=== PATIENT | male | born 1960 | race Caucasian/White ===

== ENCOUNTER 2019-07-09 15:56 | Inpatient (IN) | payer MEDICAID ==
[~2019-07-09] VITALS: Ht 193 cm; Wt 194.2 kg
[2019-07-13 12:35] VITALS: BP 131/87
== END 2019-07-13 16:45 | disposition home or self-care (01) | DRG 280 ==
LOC: ED 16:40 → EDIP 17:35 → 5SO 18:01 → DCLOUNGE 07-13 16:22
PROVIDERS: ADMIT Internal Medicine; ATTEND Internal Medicine
DX: I21.A1 Myocardial infarction type 2 (principal); I50.31 Acute diastolic (congestive) heart failure; D68.59 Other primary thrombophilia; E66.2 Morbid (severe) obesity with alveolar hypoventilation; I13.0 Hypertensive heart and chronic kidney disease with heart failure and stage 1 through stage 4 chronic kidney disease, or unspecified chronic kidney disease; I48.92 Unspecified atrial flutter; Z68.43 Body mass index [BMI] 50.0-59.9, adult; Z66 Do not resuscitate; D63.8 Anemia in other chronic diseases classified elsewhere; E03.9 Hypothyroidism, unspecified; E11.22 Type 2 diabetes mellitus with diabetic chronic kidney disease; E11.42 Type 2 diabetes mellitus with diabetic polyneuropathy; E11.65 Type 2 diabetes mellitus with hyperglycemia; I16.0 Hypertensive urgency; I34.0 Nonrheumatic mitral (valve) insufficiency; I48.91 Unspecified atrial fibrillation; W22.8XXA Striking against or struck by other objects, initial encounter; N18.3 Chronic kidney disease, stage 3 (moderate); S81.819A Laceration without foreign body, unspecified lower leg, initial encounter; S91.111A Laceration without foreign body of right great toe without damage to nail, initial encounter; Y93.89 Activity, other specified; Y92.89 Other specified places as the place of occurrence of the external cause; Y99.8 Other external cause status; Z79.4 Long term (current) use of insulin; Z87.891 Personal history of nicotine dependence; Z88.8 Allergy status to other drugs, medicaments and biological substances
CPT/HCPCS: 36415; 93017; 96372; 96374; 96375; 99291; J7613; 0399T; 71045; 78452; 80048; 80053; 80061; 81001; 82962; 83036; 83735; 83880; 84443; 84484; 85025; 93005; 93306; 93970; 94640; A9585; G0378; J1644; J1650; J2543; J2785; J3370; A9502; C9898; J1815; J1940; J7040

== ENCOUNTER → 2019-09-21 | Outpatient (CLI) | payer MEDICAID ==
[~2019-09-21] MED LIST: ALBU90AE INH; AMLO-150 PO; AMOX1TAB64 PO; APIX5TAB PO; ASPI-496 PO; ATOR20TA37 PO; CARV12.543 PO; CLOT15CR6 TP; DULA1.5P SQ; FURO40TA6 PO; GABA300C10 PO; HUM100IN4 SC; HYDR-3240 PO; LACT1TAB13 PO; LEVO75TA5 PO; LOSA100T14 PO; METF500T17 PO; MUPI15CR9 TP; NITR0.4T28 SL; POLY17PO5 PO; POTA20PA25 PO; SULF1TAB24 PO
== END | disposition home or self-care (01) ==
LOC: WOUND 09:00
PROVIDERS: ATTEND Internal Medicine
DX: E11.621 Type 2 diabetes mellitus with foot ulcer (principal); L97.512 Non-pressure chronic ulcer of other part of right foot with fat layer exposed; L97.521 Non-pressure chronic ulcer of other part of left foot limited to breakdown of skin; E11.65 Type 2 diabetes mellitus with hyperglycemia; E11.42 Type 2 diabetes mellitus with diabetic polyneuropathy; E11.21 Type 2 diabetes mellitus with diabetic nephropathy; I13.0 Hypertensive heart and chronic kidney disease with heart failure and stage 1 through stage 4 chronic kidney disease, or unspecified chronic kidney disease; E11.22 Type 2 diabetes mellitus with diabetic chronic kidney disease; N18.3 Chronic kidney disease, stage 3 (moderate); I50.31 Acute diastolic (congestive) heart failure; L84 Corns and callosities; R60.9 Edema, unspecified; R78.5 Finding of other psychotropic drug in blood; J45.909 Unspecified asthma, uncomplicated; I25.2 Old myocardial infarction; E03.9 Hypothyroidism, unspecified; E66.01 Morbid (severe) obesity due to excess calories; Z68.43 Body mass index [BMI] 50.0-59.9, adult; Z79.4 Long term (current) use of insulin; Z88.8 Allergy status to other drugs, medicaments and biological substances; Z87.891 Personal history of nicotine dependence
CPT/HCPCS: 11042

== ENCOUNTER → 2019-10-05 | Outpatient (CLI) | payer MEDICAID | END | disposition home or self-care (01) | LOC: WOUND 08:52 | PROVIDERS: ATTEND Internal Medicine | DX: E11.621 Type 2 diabetes mellitus with foot ulcer (principal); L97.512 Non-pressure chronic ulcer of other part of right foot with fat layer exposed; S81.801A Unspecified open wound, right lower leg, initial encounter; E11.65 Type 2 diabetes mellitus with hyperglycemia; E11.42 Type 2 diabetes mellitus with diabetic polyneuropathy; E11.21 Type 2 diabetes mellitus with diabetic nephropathy; I13.0 Hypertensive heart and chronic kidney disease with heart failure and stage 1 through stage 4 chronic kidney disease, or unspecified chronic kidney disease; E11.22 Type 2 diabetes mellitus with diabetic chronic kidney disease; N18.3 Chronic kidney disease, stage 3 (moderate); I50.31 Acute diastolic (congestive) heart failure; L84 Corns and callosities; R78.5 Finding of other psychotropic drug in blood; J45.909 Unspecified asthma, uncomplicated; I25.2 Old myocardial infarction; E03.9 Hypothyroidism, unspecified; E66.01 Morbid (severe) obesity due to excess calories; Z68.43 Body mass index [BMI] 50.0-59.9, adult; Z79.4 Long term (current) use of insulin; Z88.8 Allergy status to other drugs, medicaments and biological substances; Z87.891 Personal history of nicotine dependence; I48.20 Chronic atrial fibrillation, unspecified; E78.5 Hyperlipidemia, unspecified; I25.10 Atherosclerotic heart disease of native coronary artery without angina pectoris; X58.XXXA Exposure to other specified factors, initial encounter; Y93.89 Activity, other specified; Y92.89 Other specified places as the place of occurrence of the external cause; Y99.8 Other external cause status | CPT/HCPCS: 97597 ==

== ENCOUNTER → 2019-10-12 | Outpatient (CLI) | payer MEDICAID | END | disposition home or self-care (01) | LOC: WOUND 09:06 | PROVIDERS: ATTEND Internal Medicine | DX: E11.621 Type 2 diabetes mellitus with foot ulcer (principal); L97.518 Non-pressure chronic ulcer of other part of right foot with other specified severity; E11.65 Type 2 diabetes mellitus with hyperglycemia; E11.42 Type 2 diabetes mellitus with diabetic polyneuropathy; E11.21 Type 2 diabetes mellitus with diabetic nephropathy; I13.0 Hypertensive heart and chronic kidney disease with heart failure and stage 1 through stage 4 chronic kidney disease, or unspecified chronic kidney disease; E11.22 Type 2 diabetes mellitus with diabetic chronic kidney disease; N18.3 Chronic kidney disease, stage 3 (moderate); I50.31 Acute diastolic (congestive) heart failure; L84 Corns and callosities; R78.5 Finding of other psychotropic drug in blood; J45.909 Unspecified asthma, uncomplicated; I48.20 Chronic atrial fibrillation, unspecified; E78.5 Hyperlipidemia, unspecified; I25.2 Old myocardial infarction; I25.10 Atherosclerotic heart disease of native coronary artery without angina pectoris; E03.9 Hypothyroidism, unspecified; E66.2 Morbid (severe) obesity with alveolar hypoventilation; Z68.43 Body mass index [BMI] 50.0-59.9, adult; Z79.4 Long term (current) use of insulin; Z88.8 Allergy status to other drugs, medicaments and biological substances; Z87.891 Personal history of nicotine dependence | CPT/HCPCS: 99212 ==

== ENCOUNTER 2020-07-02 10:47 | Day surgery (SDC) | payer MEDICAID ==
[~2020-07-02] VITALS: Ht 195.6 cm; Wt 191.8 kg
[2020-07-02] MEDS ORDERED: SODIUM CHLORIDE 0.9% 1,000 ML IV SCH ×2 (11:00→12:53)
[2020-07-02 11:22] VITALS: BP 145/78
[2020-07-02] MEDS ORDERED: AMLO-150 PO (11:39)
[2020-07-02] MEDS ORDERED: CARV-39 PO (11:39)
[2020-07-02] MEDS ORDERED: SPIR25TA5 PO (11:39)
[2020-07-02] MEDS ORDERED: ATOR40TA PO (11:39)
[2020-07-02 12:06] LABS: BASOPHILS # (AUTO) 0.05 x10^3/uL (0-0.1); BASOPHILS % (AUTO) 0 % (0-1); EOSINOPHILS % (AUTO) 2 % (1-7); LYMPHOCYTES # (AUTO) 1.87 x10^3/uL (1-3.4); LYMPHOCYTES % (AUTO) 14 % (22-44); MD NO; MEAN CORPUSCULAR HEMOGLOBIN 29.6 pg (27.5-34.5); MEAN CORPUSCULAR HGB CONC 32.4 g/dL (33.2-36.2); MEAN CORPUSCULAR VOLUME 91.6 fL (81-97); MEAN PLATELET VOLUME 7.3 fL (7.4-10.4); MONOCYTES # (AUTO) 0.74 x10^3/uL (0.2-0.8); MONOCYTES % (AUTO) 6 % (2-9); NEUTROPHILS # (AUTO) 10.21 x10^3/uL (1.8-6.8); NEUTROPHILS % (AUTO) 78 % (42-75); PLATELET COUNT 253 x10^3/uL (130-400); RED BLOOD COUNT 4.16 x10^6/uL (4.38-5.82); RED CELL DISTRIBUTION WIDTH 13.1 % (9.4-14.8)
[2020-07-02] MEDS ORDERED: FENTANYL PF 100 MCG/2ML ONE (12:12)
[2020-07-02] MEDS ORDERED: MIDAZOLAM 1 MG/ML, 5ML ONE (12:12)
[2020-07-02] MEDS ORDERED: LIDOCAINE-MPF 1%, 5ML ONE (12:13)
[2020-07-02] MEDS ORDERED: HEPARIN 1,000 UNITS/ML, 10ML ONE (12:13)
[2020-07-02] MEDS ORDERED: VERAPAMIL 2.5 MG/ML, 2ML ONE (12:13)
[2020-07-02 12:18] LABS: ANION GAP 5 mmol/L (5-15); CALCIUM 8.4 mg/dL (8.5-10.1); CHLORIDE 113 mmol/L (98-107); CREATININE 1.86 mg/dL (0.7-1.3)
== END 2020-07-02 15:00 | disposition home or self-care (01) ==
LOC: CACL 10:47
PROVIDERS: ATTEND Internal Medicine Cardiovascular Disease
DX: R94.39 Abnormal result of other cardiovascular function study (principal); Z11.59 Encounter for screening for other viral diseases; I25.110 Atherosclerotic heart disease of native coronary artery with unstable angina pectoris; I48.91 Unspecified atrial fibrillation; E11.22 Type 2 diabetes mellitus with diabetic chronic kidney disease; I13.0 Hypertensive heart and chronic kidney disease with heart failure and stage 1 through stage 4 chronic kidney disease, or unspecified chronic kidney disease; N18.9 Chronic kidney disease, unspecified; I50.32 Chronic diastolic (congestive) heart failure; I87.2 Venous insufficiency (chronic) (peripheral); E66.01 Morbid (severe) obesity due to excess calories; Z68.43 Body mass index [BMI] 50.0-59.9, adult; Z79.01 Long term (current) use of anticoagulants; Z79.82 Long term (current) use of aspirin; Z79.4 Long term (current) use of insulin; Z79.890 Hormone replacement therapy; Z79.899 Other long term (current) drug therapy; Z88.6 Allergy status to analgesic agent; Z91.018 Allergy to other foods
CPT/HCPCS: 36415; 80048; 85025; 87635; 93458; 99156; C1769; C1894; J1644; J2250; J3010; Q9967

== ENCOUNTER → 2020-07-16 | Outpatient (CLI) | payer MEDICAID ==
[~2020-07-16] MED LIST changes: +ATOR40TA PO; +CARV-39 PO; +SPIR25TA5 PO
== END | disposition home or self-care (01) ==
LOC: CVU 08:30
PROVIDERS: ATTEND Physician Assistant Medical
DX: I08.8 Other rheumatic multiple valve diseases (principal); I11.9 Hypertensive heart disease without heart failure; I25.10 Atherosclerotic heart disease of native coronary artery without angina pectoris
CPT/HCPCS: 93306

== ENCOUNTER 2020-11-13 17:52 | Inpatient (IN) | payer MEDICAID ==
[~2020-11-13] VITALS: Ht 193 cm; Wt 202.2 kg
[~2020-11-13 17:52] MED LIST changes: +HYDR-1067 PO; -HYDR-3240 PO
[2020-11-13] MEDS ORDERED: SODIUM CHLORIDE FLUSH 10ML SYR IVF ONE (18:30)
[2020-11-13] MEDS ORDERED: SODIUM CHLORIDE 0.9% 1,000ML IVBOLUS ONE ×2 (18:30→23:30)
[2020-11-13 19:06] LABS: MEAN CORPUSCULAR HEMOGLOBIN 29.9 pg (27.5-34.5); MEAN CORPUSCULAR HGB CONC 33.8 g/dL (33.2-36.2); MEAN PLATELET VOLUME 7.6 fL (7.4-10.4); PLATELET COUNT 460 x10^3/uL (130-400); RED BLOOD COUNT 4.77 x10^6/uL (4.38-5.82); RED CELL DISTRIBUTION WIDTH 13.5 % (9.4-14.8)
[2020-11-13 19:07] LABS: ALANINE AMINOTRANSFERASE 49 U/L (12-78); ANION GAP 12 mmol/L (5-15); CALCIUM 8.4 mg/dL (8.5-10.1); CHLORIDE 95 mmol/L (98-107); CREATININE 6.56 mg/dL (0.7-1.3)
[2020-11-13 19:11] LABS: ALKALINE PHOSPHATASE 240 U/L (45-117); BILIRUBIN,TOTAL 0.4 mg/dL (0.2-1.0); TOTAL PROTEIN 8.8 g/dL (6.4-8.2); TROPONIN I < 0.015 ng/mL (0.000-0.045)
[2020-11-13 19:46] LABS: MD YES
[2020-11-13 19:47] LABS: <RBC MORPHOLOGY> NORMAL; BAND#(MANUAL) 1.04 x10^3/uL; BANDS%(MANUAL) 4 % (0-7); EOS#(MANUAL) 0.52 x10^3/uL (0.0-0.4); EOS% (MANUAL) 2 % (1-7); LYMPH#(MANUAL) 1.81 x10^3/uL (1-3.4); LYMPHS% (MANUAL) 7 % (22-44); METAMYELOCYTES# (MANUAL) 0.26 x10^3/uL (0-0); METAMYELOCYTES% (MANUAL) 1 % (0-1); MONOS#(MANUAL) 1.55 x10^3/uL (0.3-2.7); MONOS% (MANUAL) 6 % (2-9); SEG#(MANUAL) 20.72 x10^3/uL (1.8-6.8); SEGS% (MANUAL) 80 % (42-75)
[2020-11-13 19:48] LABS: <PLATELET ESTIMATE> INCREASED; <PLT MORPHOLOGY> NORMAL PLT MORPH
--- NOTE | 2020-11-13 20:51 | NUR ---
COLOSTOMY EMPTIED X2. DARK WITH CHUNKS/LIQUID.
[2020-11-13] MEDS ORDERED: ONDANSETRON 2MG/ML, 2ML ONE (21:15)
[2020-11-13] MEDS ORDERED: SODIUM CHLORIDE 0.9% 1,000 ML IV ONE (21:30)
--- NOTE | 2020-11-13 22:34 | NUR ---
Colostomy emptied of 200ml of watery brown stool
[2020-11-13 22:41] LABS: MICROSCOPIC INDICATED
[2020-11-13] MEDS ORDERED: LABETALOL 5MG/ML, 20ML IVPush PRN (23:30)
[2020-11-13] MEDS ORDERED: SODIUM CHLORIDE FLUSH 10ML SYR IVF PRN (23:30)
[2020-11-13] MEDS ORDERED: DEXTROSE 50%, 50ML SYRINGE IVPush ONE (23:30)
[2020-11-13] MEDS ORDERED: CALCIUM CHLORIDE 10%, 10ML SYR IVPush ONE (23:30)
[2020-11-13] MEDS ORDERED: PROMETHAZINE 25 MG/ML, 1ML IM PRN (23:30)
[2020-11-13] MEDS ORDERED: SODIUM BICARB 8.4%, 50ML SYRINGE IVPush ONE (23:30)
[2020-11-13] MEDS ORDERED: INSULIN REGULAR 100 UNITS/ML, 3ML VIAL IVPush ONE (23:30)
[2020-11-13] MEDS ORDERED: SODIUM BICARB 8.4%, 50ML SYRINGE ONE (23:45)
[2020-11-13] MEDS ORDERED: CALCIUM CHLORIDE 10%, 10ML SYR ONE (23:45)
[2020-11-13] MEDS ORDERED: DEXTROSE 50%, 50ML SYRINGE ONE (23:45)
--- NOTE | 2020-11-14 00:09 | NUR ---
MEDS ORDERED FROM PHARMACY, AWAITING ARRIVAL AT THIS TIME
[2020-11-14 00:25] LABS: ALBUMIN 2.7 g/dL (3.4-5.0); ANION GAP 11 mmol/L (5-15); CALCIUM 7.8 mg/dL (8.5-10.1); CHLORIDE 98 mmol/L (98-107); CREATININE 6.74 mg/dL (0.7-1.3)
[2020-11-14] MEDS ORDERED: INSULIN SINGLE DOSE, ER ONE (00:28)
[2020-11-14] MEDS: LACTATED RINGERS 1,000 ML IV SCH ×4 (00:49→20:18)
[2020-11-14] MEDS: morphine SULFATE 10 MG/ML, 1ML IVPush PRN ×3 (00:50→17:44)
[2020-11-14] MEDS ORDERED: MORPHINE SULFATE 4 MG/ML, 1ML ONE ×2 (00:51→11:51)
--- NOTE | 2020-11-14 01:16 | NUR ---
Pt transffered to hospital bed at this time
--- NOTE | 2020-11-14 01:18 | NUR ---
Emptied colostomy bag 100ml of liquid stool
--- NOTE | 2020-11-14 02:51 | NUR ---
Colostomy emptied- 150ml of liquid stool
[2020-11-14 06:15] LABS: ANION GAP 10 mmol/L (5-15); BASOPHILS % (AUTO) 0 % (0-1); CALCIUM 8.6 mg/dL (8.5-10.1); CHLORIDE 98 mmol/L (98-107); CREATININE 6.69 mg/dL (0.7-1.3); EOSINOPHILS % (AUTO) 1 % (1-7); LYMPHOCYTES % (AUTO) 10 % (22-44); MEAN CORPUSCULAR HEMOGLOBIN 29.5 pg (27.5-34.5); MEAN CORPUSCULAR HGB CONC 33.2 g/dL (33.2-36.2); MEAN PLATELET VOLUME 7.5 fL (7.4-10.4); MONOCYTES % (AUTO) 7 % (2-9); NEUTROPHILS % (AUTO) 82 % (42-75); PLATELET COUNT 398 x10^3/uL (130-400); RED BLOOD COUNT 4.35 x10^6/uL (4.38-5.82); RED CELL DISTRIBUTION WIDTH 13.1 % (9.4-14.8)
[2020-11-14 06:48] LABS: MD SCAN
[2020-11-14] MEDS ORDERED: INSULIN LISPRO 100 UNITS/ML, PEN SQ-INSULIN SCH (07:00)
--- NOTE | 2020-11-14 10:33 | NUR ---
BEDSIDE REPORT AND CARE FROM KALIA OBRIEN AT THIS TIME. FIRST CONTACT WITH PT. PT RESTING IN POSITION OF COMFORT ON HOSPITAL BED. DENIES NEED TO USE RESTROOM. COLOSTOMY BAG IN PLACE, DRAINING PROPERLY. NGT TO SUCTION, DRAINING PROPERLY. VSS. CONT PULSE OX, BP, CARDIAC MONITORS IN PLACE. SR ON MONITOR. CALL LIGHT IN REACH, FALL PRECAUTIONS IN PLACE. PT USING ON CELL PHONE. A&OX4. WILL CONTINUE TO MONITOR.
--- NOTE | 2020-11-14 11:00 | NUR ---
BEDSIDE REPORT AND TRANSFER OF CARE TO ROMELIA OBRIEN AT THIS TIME.
--- NOTE | 2020-11-14 11:13 | NUR ---
REPORT RECEIVED FROM CAMILLE COTTON. ASSUMING PRIMARY CARE OF.
--- NOTE | 2020-11-14 11:53 | NUR ---
REPORT TO CAMILLE ZARAGOZA. PT MEDICATED FOR 9/10 NECK, BACK, ABD PAIN.
[2020-11-14 12:10] VITALS: BP 118/75
[2020-11-14] MEDS: INSULIN LISPRO 100 UNITS/ML, PEN SQ-INSULIN SCH ×2 (12:20→15:03)
[2020-11-14 12:42] VITALS: BP 111/68
[2020-11-14 13:23] LABS: ANION GAP 12 mmol/L (5-15); CALCIUM 8.1 mg/dL (8.5-10.1); CHLORIDE 97 mmol/L (98-107); CREATININE 6.78 mg/dL (0.7-1.3)
[2020-11-14] MEDS ORDERED: DEXTROSE 50%, 50ML SYRINGE IVPush ONE (15:00)
[2020-11-14] MEDS ORDERED: SODIUM ZIRCONIUM CYCLOSILICATE 10 GM PO ONE (15:00)
[2020-11-14] MEDS ORDERED: INSULIN REGULAR 100 UNITS/ML, 3ML VIAL IVPush ONE (15:00)
[2020-11-14 22:44] VITALS: BP 111/76
[2020-11-15] MEDS: morphine SULFATE 10 MG/ML, 1ML IVPush PRN ×2 (00:07→07:59)
[2020-11-15] MEDS: LACTATED RINGERS 1,000 ML IV SCH (02:52)
[2020-11-15 02:53] VITALS: BP 113/78
[2020-11-15 05:22] LABS: BASOPHILS % (AUTO) 0 % (0-1); EOSINOPHILS % (AUTO) 1 % (1-7); LYMPHOCYTES % (AUTO) 10 % (22-44); MEAN CORPUSCULAR HEMOGLOBIN 29.1 pg (27.5-34.5); MEAN CORPUSCULAR HGB CONC 33.2 g/dL (33.2-36.2); MEAN PLATELET VOLUME 7.4 fL (7.4-10.4); MONOCYTES % (AUTO) 7 % (2-9); NEUTROPHILS % (AUTO) 81 % (42-75); PLATELET COUNT 353 x10^3/uL (130-400); RED BLOOD COUNT 4.12 x10^6/uL (4.38-5.82); RED CELL DISTRIBUTION WIDTH 13.5 % (9.4-14.8)
[2020-11-15 05:30] LABS: ALANINE AMINOTRANSFERASE 29 U/L (12-78); ALBUMIN 2.7 g/dL (3.4-5.0); ANION GAP 11 mmol/L (5-15); CALCIUM 8.2 mg/dL (8.5-10.1); CHLORIDE 100 mmol/L (98-107); CREATININE 6.06 mg/dL (0.7-1.3)
[2020-11-15 05:32] LABS: ALKALINE PHOSPHATASE 172 U/L (45-117); BILIRUBIN,TOTAL 0.4 mg/dL (0.2-1.0); TOTAL PROTEIN 7.3 g/dL (6.4-8.2)
[2020-11-15 05:36] LABS: MD NO
[2020-11-15 07:04] VITALS: BP 122/77
[2020-11-15] MEDS ORDERED: DEXTROSE 50%, 50ML SYRINGE IVPush ONE (07:30)
[2020-11-15] MEDS ORDERED: INSULIN REGULAR 100 UNITS/ML, 3ML VIAL IVPush ONE (07:30)
[2020-11-15] MEDS: SODIUM CHLORIDE 0.9% 1,000 ML IV SCH ×2 (10:13→17:04)
[2020-11-15 13:12] VITALS: BP 137/80
[2020-11-15] MEDS: INSULIN LISPRO 100 UNITS/ML, PEN SQ-INSULIN SCH ×2 (17:05→20:48)
[2020-11-15 19:05] VITALS: BP 116/70
[2020-11-15] MEDS: CARVEDILOL 25 MG TABLET PO SCH (20:42)
[2020-11-15] MEDS: GABAPENTIN 300 MG CAPSULE PO SCH (20:42)
[2020-11-15] MEDS: ATORVASTATIN 40 MG TABLET PO SCH (20:42)
[2020-11-16 00:32] VITALS: BP 105/65
[2020-11-16] MEDS: SODIUM CHLORIDE 0.9% 1,000 ML IV SCH ×2 (00:53→07:37)
[2020-11-16] MEDS: morphine SULFATE 10 MG/ML, 1ML IVPush PRN ×2 (04:44→18:00)
[2020-11-16] MEDS: INSULIN LISPRO 100 UNITS/ML, PEN SQ-INSULIN SCH ×4 (06:09→21:33)
[2020-11-16 06:28] LABS: BASOPHILS % (AUTO) 0 % (0-1); EOSINOPHILS % (AUTO) 2 % (1-7); LYMPHOCYTES % (AUTO) 13 % (22-44); MEAN CORPUSCULAR HEMOGLOBIN 28.9 pg (27.5-34.5); MEAN CORPUSCULAR HGB CONC 32.9 g/dL (33.2-36.2); MEAN PLATELET VOLUME 7.5 fL (7.4-10.4); MONOCYTES % (AUTO) 9 % (2-9); NEUTROPHILS % (AUTO) 76 % (42-75); PLATELET COUNT 332 x10^3/uL (130-400); RED BLOOD COUNT 3.96 x10^6/uL (4.38-5.82); RED CELL DISTRIBUTION WIDTH 13.3 % (9.4-14.8)
[2020-11-16 06:30] LABS: ALBUMIN 2.4 g/dL (3.4-5.0); ANION GAP 10 mmol/L (5-15); CALCIUM 8.1 mg/dL (8.5-10.1); CHLORIDE 103 mmol/L (98-107)
[2020-11-16 06:33] LABS: ALANINE AMINOTRANSFERASE 24 U/L (12-78); ALKALINE PHOSPHATASE 139 U/L (45-117); BILIRUBIN,TOTAL 0.3 mg/dL (0.2-1.0); CREATININE 3.97 mg/dL (0.7-1.3); TOTAL PROTEIN 6.6 g/dL (6.4-8.2)
[2020-11-16 06:56] VITALS: BP 98/64
[2020-11-16] MEDS: GABAPENTIN 300 MG CAPSULE PO SCH ×2 (07:36→21:31)
[2020-11-16] MEDS: CARVEDILOL 25 MG TABLET PO SCH ×2 (07:36→21:31)
[2020-11-16] MEDS: LEVOTHYROXINE 75 MCG TABLET PO SCH (07:36)
[2020-11-16 07:44] LABS: MD SCAN
[2020-11-16] MEDS: LACTATED RINGERS 1,000 ML IV SCH ×2 (12:02→21:32)
[2020-11-16 13:58] VITALS: BP 90/53
[2020-11-16] MEDS ORDERED: NITROGLYCERIN 0.4 MG/SPRAY SL PRN (17:00)
[2020-11-16] MEDS ORDERED: NITROGLYCERIN 0.4 MG BOTTLE (25 TABS) SL PRN (17:00)
[2020-11-16 18:56] VITALS: BP 110/71
[2020-11-16] MEDS: ATORVASTATIN 40 MG TABLET PO SCH (21:31)
[2020-11-17 01:50] VITALS: BP 138/72
[2020-11-17 05:10] LABS: BASOPHILS % (AUTO) 1 % (0-1); EOSINOPHILS % (AUTO) 4 % (1-7); LYMPHOCYTES % (AUTO) 16 % (22-44); MEAN CORPUSCULAR HEMOGLOBIN 29.6 pg (27.5-34.5); MEAN CORPUSCULAR HGB CONC 33.8 g/dL (33.2-36.2); MEAN PLATELET VOLUME 7.2 fL (7.4-10.4); MONOCYTES % (AUTO) 9 % (2-9); NEUTROPHILS % (AUTO) 69 % (42-75); PLATELET COUNT 350 x10^3/uL (130-400); RED BLOOD COUNT 3.77 x10^6/uL (4.38-5.82); RED CELL DISTRIBUTION WIDTH 13.2 % (9.4-14.8)
[2020-11-17 05:21] LABS: ALBUMIN 2.4 g/dL (3.4-5.0); ANION GAP 5 mmol/L (5-15); CALCIUM 8.1 mg/dL (8.5-10.1); CHLORIDE 106 mmol/L (98-107)
[2020-11-17 05:25] LABS: ALANINE AMINOTRANSFERASE 20 U/L (12-78); ALKALINE PHOSPHATASE 120 U/L (45-117); BILIRUBIN,TOTAL 0.2 mg/dL (0.2-1.0); CREATININE 2.93 mg/dL (0.7-1.3); TOTAL PROTEIN 6.6 g/dL (6.4-8.2)
[2020-11-17] MEDS: INSULIN LISPRO 100 UNITS/ML, PEN SQ-INSULIN SCH ×4 (06:36→21:00)
[2020-11-17 06:43] LABS: MD SCAN
[2020-11-17] MEDS: LACTATED RINGERS 1,000 ML IV SCH (06:50)
[2020-11-17 06:57] VITALS: BP 150/75
[2020-11-17] MEDS: CARVEDILOL 25 MG TABLET PO SCH ×2 (08:05→23:41)
[2020-11-17] MEDS: GABAPENTIN 300 MG CAPSULE PO SCH ×2 (08:06→23:41)
[2020-11-17] MEDS: LEVOTHYROXINE 75 MCG TABLET PO SCH (08:06)
[2020-11-17 12:29] VITALS: BP_SYST 131; BP_SYST 136; BP_DIAS 53; BP_DIAS 81
[2020-11-17 21:10] VITALS: BP 124/75
[2020-11-17] MEDS: ATORVASTATIN 40 MG TABLET PO SCH (23:40)
[2020-11-17] MEDS: morphine SULFATE 10 MG/ML, 1ML IVPush PRN (23:58)
[2020-11-18 01:20] VITALS: BP 126/80
[2020-11-18 05:42] LABS: BASOPHILS % (AUTO) 1 % (0-1); EOSINOPHILS % (AUTO) 4 % (1-7); LYMPHOCYTES % (AUTO) 16 % (22-44); MEAN CORPUSCULAR HEMOGLOBIN 29.1 pg (27.5-34.5); MEAN CORPUSCULAR HGB CONC 33.1 g/dL (33.2-36.2); MEAN PLATELET VOLUME 7.1 fL (7.4-10.4); MONOCYTES % (AUTO) 10 % (2-9); NEUTROPHILS % (AUTO) 70 % (42-75); PLATELET COUNT 414 x10^3/uL (130-400); RED BLOOD COUNT 4.07 x10^6/uL (4.38-5.82); RED CELL DISTRIBUTION WIDTH 13.5 % (9.4-14.8)
[2020-11-18 05:49] LABS: ALBUMIN 2.7 g/dL (3.4-5.0); CALCIUM 8.7 mg/dL (8.5-10.1); CHLORIDE 107 mmol/L (98-107)
[2020-11-18 05:55] LABS: ALANINE AMINOTRANSFERASE 20 U/L (12-78); ALKALINE PHOSPHATASE 122 U/L (45-117); ANION GAP 7 mmol/L (5-15); BILIRUBIN,TOTAL 0.2 mg/dL (0.2-1.0); CREATININE 2.58 mg/dL (0.7-1.3); TOTAL PROTEIN 7.5 g/dL (6.4-8.2)
[2020-11-18 06:32] LABS: MD SCAN
[2020-11-18 06:47] VITALS: BP 132/78
[2020-11-18] MEDS: INSULIN LISPRO 100 UNITS/ML, PEN SQ-INSULIN SCH ×4 (08:04→21:15)
[2020-11-18] MEDS: CARVEDILOL 25 MG TABLET PO SCH ×2 (08:19→21:02)
[2020-11-18] MEDS: LEVOTHYROXINE 75 MCG TABLET PO SCH (08:19)
[2020-11-18] MEDS: GABAPENTIN 300 MG CAPSULE PO SCH ×2 (08:19→21:02)
[2020-11-18 12:16] VITALS: BP 117/72
[2020-11-18 19:12] VITALS: BP 127/85
[2020-11-18] MEDS: morphine SULFATE 10 MG/ML, 1ML IVPush PRN (19:38)
[2020-11-18 21:01] VITALS: BP 102/71
[2020-11-18] MEDS: ATORVASTATIN 40 MG TABLET PO SCH (21:02)
[2020-11-18] MEDS ORDERED: SIMETHICONE DROPS 40 MG/0.6 ML BOTTLE PO PRN (22:00)
[2020-11-18] MEDS: ONDANSETRON 2MG/ML, 2ML IVPush PRN (23:02)
[2020-11-18] MEDS ORDERED: SIMETHICONE 80 MG CHEW TAB PO PRN (23:47)
[2020-11-19] MEDS: ACETAMINOPHEN 325 MG TABLET PO PRN (01:12)
[2020-11-19 01:19] VITALS: BP 131/82
[2020-11-19 02:28] LABS: CLOSTRIDIUM DIFFICILE ANTIGEN NEGATIVE; CLOSTRIDIUM DIFFICILE TOXIN NEGATIVE (Negative)
[2020-11-19 05:46] LABS: BASOPHILS % (AUTO) 1 % (0-1); EOSINOPHILS % (AUTO) 3 % (1-7); LYMPHOCYTES % (AUTO) 16 % (22-44); MEAN CORPUSCULAR HEMOGLOBIN 29.7 pg (27.5-34.5); MEAN PLATELET VOLUME 7.1 fL (7.4-10.4); MONOCYTES % (AUTO) 11 % (2-9); NEUTROPHILS % (AUTO) 69 % (42-75); PLATELET COUNT 444 x10^3/uL (130-400); RED BLOOD COUNT 4.32 x10^6/uL (4.38-5.82); RED CELL DISTRIBUTION WIDTH 13.3 % (9.4-14.8)
[2020-11-19] MEDS: INSULIN LISPRO 100 UNITS/ML, PEN SQ-INSULIN SCH ×4 (07:01→20:50)
[2020-11-19 07:36] LABS: MD SCAN
[2020-11-19 07:42] LABS: ALBUMIN 2.9 g/dL (3.4-5.0); ANION GAP 3 mmol/L (5-15); CALCIUM 8.9 mg/dL (8.5-10.1); CHLORIDE 104 mmol/L (98-107); CREATININE 3.17 mg/dL (0.7-1.3)
[2020-11-19 08:00] VITALS: BP 121/67
[2020-11-19] MEDS ORDERED: FUROSEMIDE 20 MG/2 ML IV ONE (08:30)
[2020-11-19] MEDS ORDERED: SODIUM CHLORIDE 0.9% 1,000 ML IV SCH (08:30)
[2020-11-19] MEDS: LEVOTHYROXINE 75 MCG TABLET PO SCH (09:09)
[2020-11-19] MEDS: CARVEDILOL 25 MG TABLET PO SCH ×2 (09:09→20:42)
[2020-11-19] MEDS: GABAPENTIN 300 MG CAPSULE PO SCH ×2 (09:09→20:42)
[2020-11-19] MEDS: CEFTRIAXONE PMX 2GM/50ML 50 ML IVPB SCH (10:02)
[2020-11-19] MEDS: METRONIDAZOLE PMX 500MG/100ML 100 ML IV SCH ×2 (10:25→17:35)
[2020-11-19] MEDS ORDERED: HEPARIN 5,000 UNITS/ML, 1ML ONE (12:23)
[2020-11-19] MEDS: HEPARIN 5,000 UNITS/ML, 1ML SQ SCH ×2 (12:35→20:41)
[2020-11-19 13:00] VITALS: BP 137/78
[2020-11-19] MEDS: morphine SULFATE 10 MG/ML, 1ML IVPush PRN (14:03)
[2020-11-19 14:53] LABS: TROPONIN I < 0.015 ng/mL (0.000-0.045)
[2020-11-19 17:34] LABS: ANION GAP 8 mmol/L (5-15); CALCIUM 8.9 mg/dL (8.5-10.1); CHLORIDE 106 mmol/L (98-107)
[2020-11-19 20:15] VITALS: BP 114/69
[2020-11-19 20:38] VITALS: BP 124/68
[2020-11-19] MEDS: ATORVASTATIN 40 MG TABLET PO SCH (20:42)
[2020-11-19] MEDS ORDERED: SODIUM ZIRCONIUM CYCLOSILICATE 10 GM PO SCH (21:00)
[2020-11-20 01:41] VITALS: BP 104/78
[2020-11-20] MEDS: METRONIDAZOLE PMX 500MG/100ML 100 ML IV SCH ×3 (01:47→18:29)
[2020-11-20 04:06] LABS: BASOPHILS % (AUTO) 1 % (0-1); EOSINOPHILS % (AUTO) 3 % (1-7); LYMPHOCYTES % (AUTO) 11 % (22-44); MEAN CORPUSCULAR HEMOGLOBIN 29.5 pg (27.5-34.5); MEAN CORPUSCULAR HGB CONC 33.4 g/dL (33.2-36.2); MEAN PLATELET VOLUME 7.1 fL (7.4-10.4); MONOCYTES % (AUTO) 9 % (2-9); NEUTROPHILS % (AUTO) 75 % (42-75); PLATELET COUNT 361 x10^3/uL (130-400); RED BLOOD COUNT 4.08 x10^6/uL (4.38-5.82); RED CELL DISTRIBUTION WIDTH 13.4 % (9.4-14.8)
[2020-11-20 04:11] LABS: MD NO
[2020-11-20 04:15] LABS: ANION GAP 6 mmol/L (5-15); CALCIUM 8.6 mg/dL (8.5-10.1); CHLORIDE 105 mmol/L (98-107); CREATININE 3.82 mg/dL (0.7-1.3)
[2020-11-20] MEDS: HEPARIN 5,000 UNITS/ML, 1ML SQ SCH ×3 (04:25→21:59)
[2020-11-20] MEDS: INSULIN LISPRO 100 UNITS/ML, PEN SQ-INSULIN SCH ×4 (07:00→21:00)
[2020-11-20 08:00] VITALS: BP 143/80
[2020-11-20] MEDS: GABAPENTIN 300 MG CAPSULE PO SCH ×2 (09:02→21:59)
[2020-11-20] MEDS: CEFTRIAXONE PMX 2GM/50ML 50 ML IVPB SCH (09:02)
[2020-11-20] MEDS: SODIUM CHLORIDE 0.9% 1,000 ML IV SCH ×3 (09:02→18:30)
[2020-11-20] MEDS: LEVOTHYROXINE 75 MCG TABLET PO SCH (09:03)
[2020-11-20] MEDS: CARVEDILOL 25 MG TABLET PO SCH ×2 (09:03→22:00)
[2020-11-20] MEDS: morphine SULFATE 10 MG/ML, 1ML IVPush PRN ×2 (10:51→12:00)
[2020-11-20] MEDS: ACETAMINOPHEN 325 MG TABLET PO PRN (12:00)
[2020-11-20] MEDS ORDERED: SODIUM ZIRCONIUM CYCLOSILICATE 10 GM PO SCH (12:00)
[2020-11-20 14:00] VITALS: BP 142/84
[2020-11-20 16:25] LABS: CHLORIDE 105 mmol/L (98-107)
[2020-11-20 16:32] LABS: ANION GAP 7 mmol/L (5-15); CALCIUM 8.2 mg/dL (8.5-10.1); CREATININE 3.27 mg/dL (0.7-1.3)
[2020-11-20 20:07] VITALS: BP 141/81
[2020-11-20] MEDS: ATORVASTATIN 40 MG TABLET PO SCH (21:59)
[2020-11-21 00:06] VITALS: BP 98/65
[2020-11-21] MEDS: METRONIDAZOLE PMX 500MG/100ML 100 ML IV SCH (02:14)
[2020-11-21] MEDS: SODIUM CHLORIDE 0.9% 1,000 ML IV SCH ×5 (02:15→21:00)
[2020-11-21] MEDS: HEPARIN 5,000 UNITS/ML, 1ML SQ SCH ×3 (03:54→21:19)
[2020-11-21 05:16] LABS: ALANINE AMINOTRANSFERASE 20 U/L (12-78); ALBUMIN 2.7 g/dL (3.4-5.0); ANION GAP 5 mmol/L (5-15); CALCIUM 7.9 mg/dL (8.5-10.1); CHLORIDE 109 mmol/L (98-107); CREATININE 2.82 mg/dL (0.7-1.3)
[2020-11-21 05:17] LABS: BASOPHILS % (AUTO) 1 % (0-1); EOSINOPHILS % (AUTO) 6 % (1-7); LYMPHOCYTES % (AUTO) 14 % (22-44); MEAN CORPUSCULAR HEMOGLOBIN 29.4 pg (27.5-34.5); MEAN CORPUSCULAR HGB CONC 33.3 g/dL (33.2-36.2); MONOCYTES % (AUTO) 11 % (2-9); NEUTROPHILS % (AUTO) 67 % (42-75); PLATELET COUNT 343 x10^3/uL (130-400); RED BLOOD COUNT 3.91 x10^6/uL (4.38-5.82); RED CELL DISTRIBUTION WIDTH 13.4 % (9.4-14.8)
[2020-11-21 05:18] LABS: ALKALINE PHOSPHATASE 103 U/L (45-117); BILIRUBIN,TOTAL 0.3 mg/dL (0.2-1.0); TOTAL PROTEIN 7.1 g/dL (6.4-8.2)
[2020-11-21 05:38] LABS: MD NO
[2020-11-21] MEDS: INSULIN LISPRO 100 UNITS/ML, PEN SQ-INSULIN SCH ×4 (06:51→21:21)
[2020-11-21 08:00] VITALS: BP 131/82
[2020-11-21] MEDS: GABAPENTIN 300 MG CAPSULE PO SCH ×2 (08:50→21:21)
[2020-11-21] MEDS: CARVEDILOL 25 MG TABLET PO SCH ×2 (08:50→21:21)
[2020-11-21] MEDS: metroNIDAZOLE 500 MG TABLET PO SCH ×2 (08:50→16:10)
[2020-11-21] MEDS: LEVOTHYROXINE 75 MCG TABLET PO SCH (08:50)
[2020-11-21] MEDS: CEFTRIAXONE PMX 2GM/50ML 50 ML IVPB SCH (08:51)
[2020-11-21] MEDS ORDERED: SODIUM ZIRCONIUM CYCLOSILICATE 10 GM PO ONE (11:00)
[2020-11-21 14:00] VITALS: BP 104/64
[2020-11-21] MEDS: BENZONATATE 100 MG CAPSULE PO SCH ×2 (16:10→21:21)
[2020-11-21 20:18] VITALS: BP 133/76
[2020-11-21] MEDS: morphine SULFATE 10 MG/ML, 1ML IVPush PRN (21:20)
[2020-11-21] MEDS: ATORVASTATIN 40 MG TABLET PO SCH (21:21)
[2020-11-22 00:59] VITALS: BP 130/79
[2020-11-22] MEDS: metroNIDAZOLE 500 MG TABLET PO SCH ×3 (01:04→16:39)
[2020-11-22] MEDS: morphine SULFATE 10 MG/ML, 1ML IVPush PRN ×2 (01:15→12:50)
[2020-11-22] MEDS: SODIUM CHLORIDE 0.9% 1,000 ML IV SCH ×5 (04:12→22:11)
[2020-11-22] MEDS: HEPARIN 5,000 UNITS/ML, 1ML SQ SCH ×3 (04:19→22:20)
[2020-11-22 05:32] LABS: CHLORIDE 111 mmol/L (98-107)
[2020-11-22 05:37] LABS: ANION GAP 6 mmol/L (5-15); CALCIUM 7.8 mg/dL (8.5-10.1); CREATININE 2.34 mg/dL (0.7-1.3)
[2020-11-22] MEDS: INSULIN LISPRO 100 UNITS/ML, PEN SQ-INSULIN SCH ×4 (06:47→22:11)
[2020-11-22 08:09] VITALS: BP 146/81
[2020-11-22] MEDS: LEVOTHYROXINE 75 MCG TABLET PO SCH (09:16)
[2020-11-22] MEDS: CEFTRIAXONE PMX 2GM/50ML 50 ML IVPB SCH (09:16)
[2020-11-22] MEDS: BENZONATATE 100 MG CAPSULE PO SCH ×3 (09:16→22:19)
[2020-11-22] MEDS: GABAPENTIN 300 MG CAPSULE PO SCH ×2 (09:17→22:19)
[2020-11-22] MEDS: CARVEDILOL 25 MG TABLET PO SCH ×2 (09:17→22:19)
[2020-11-22 13:01] VITALS: BP 121/70
[2020-11-22] MEDS: ATORVASTATIN 40 MG TABLET PO SCH (22:19)
[2020-11-22 22:24] VITALS: BP 138/78
[2020-11-22 23:04] VITALS: BP 164/79
[2020-11-23] MEDS: metroNIDAZOLE 500 MG TABLET PO SCH ×3 (00:30→17:12)
[2020-11-23 02:09] VITALS: BP 151/71
[2020-11-23] MEDS: SODIUM CHLORIDE 0.9% 1,000 ML IV SCH (04:15)
[2020-11-23] MEDS: INSULIN LISPRO 100 UNITS/ML, PEN SQ-INSULIN SCH ×4 (07:09→21:24)
[2020-11-23] MEDS: HEPARIN 5,000 UNITS/ML, 1ML SQ SCH ×3 (07:10→21:24)
[2020-11-23 08:02] LABS: ANION GAP 4 mmol/L (5-15); CALCIUM 8.7 mg/dL (8.5-10.1); CHLORIDE 118 mmol/L (98-107); CREATININE 1.79 mg/dL (0.7-1.3)
[2020-11-23 08:35] VITALS: BP 162/74
[2020-11-23] MEDS: CEFTRIAXONE PMX 2GM/50ML 50 ML IVPB SCH (08:50)
[2020-11-23] MEDS: BENZONATATE 100 MG CAPSULE PO SCH ×3 (08:50→21:23)
[2020-11-23] MEDS: LEVOTHYROXINE 75 MCG TABLET PO SCH (08:50)
[2020-11-23] MEDS: GABAPENTIN 300 MG CAPSULE PO SCH ×2 (08:50→21:24)
[2020-11-23] MEDS: CARVEDILOL 25 MG TABLET PO SCH ×2 (08:50→21:23)
[2020-11-23] MEDS: SODIUM CHLORIDE 0.45% 1,000 ML IV SCH ×3 (08:51→23:49)
[2020-11-23] MEDS ORDERED: CALCIUM GLUCONATE 4.6 MEQ/10 ML IVPush ONE (08:55)
[2020-11-23] MEDS ORDERED: DEXTROSE 50%, 50ML SYRINGE IVPush ONE (08:55)
[2020-11-23] MEDS ORDERED: INSULIN REGULAR 100 UNITS/ML, 3ML VIAL IVPush ONE (08:55)
[2020-11-23] MEDS ORDERED: SODIUM ZIRCONIUM CYCLOSILICATE 10 GM PO ONE (09:00)
[2020-11-23] MEDS: morphine SULFATE 10 MG/ML, 1ML IVPush PRN (11:29)
[2020-11-23 12:51] VITALS: BP 147/78
[2020-11-23 15:18] LABS: ANION GAP 4 mmol/L (5-15); CALCIUM 8.4 mg/dL (8.5-10.1); CHLORIDE 115 mmol/L (98-107)
[2020-11-23 18:34] VITALS: BP 153/81
[2020-11-23] MEDS: ATORVASTATIN 40 MG TABLET PO SCH (21:24)
[2020-11-24 01:10] VITALS: BP 183/83
[2020-11-24] MEDS: metroNIDAZOLE 500 MG TABLET PO SCH (01:20)
[2020-11-24] MEDS: morphine SULFATE 10 MG/ML, 1ML IVPush PRN ×2 (01:25→11:50)
[2020-11-24] MEDS: ACETAMINOPHEN 325 MG TABLET PO PRN (03:16)
[2020-11-24] MEDS: HEPARIN 5,000 UNITS/ML, 1ML SQ SCH ×3 (05:16→20:42)
[2020-11-24] MEDS: SODIUM CHLORIDE 0.45% 1,000 ML IV SCH (05:16)
[2020-11-24 07:45] VITALS: BP 160/89
[2020-11-24 08:09] LABS: ANION GAP 6 mmol/L (5-15); CALCIUM 8.2 mg/dL (8.5-10.1); CHLORIDE 112 mmol/L (98-107)
[2020-11-24] MEDS ORDERED: SODIUM CHLORIDE 0.45% 1,000 ML IV SCH (09:00)
[2020-11-24] MEDS ORDERED: SODIUM ZIRCONIUM CYCLOSILICATE 10 GM PO ONE (09:30)
[2020-11-24] MEDS: CARVEDILOL 25 MG TABLET PO SCH ×2 (10:30→20:41)
[2020-11-24] MEDS: BENZONATATE 100 MG CAPSULE PO SCH ×3 (10:30→20:41)
[2020-11-24] MEDS: LEVOTHYROXINE 75 MCG TABLET PO SCH (10:30)
[2020-11-24] MEDS: GABAPENTIN 300 MG CAPSULE PO SCH ×2 (10:30→20:41)
[2020-11-24 14:00] VITALS: BP 113/74
[2020-11-24 19:57] VITALS: BP 135/73
[2020-11-24] MEDS: ATORVASTATIN 40 MG TABLET PO SCH (20:41)
[2020-11-25 01:35] VITALS: BP 120/80
[2020-11-25 04:58] LABS: BASOPHILS % (AUTO) 1 % (0-1); EOSINOPHILS % (AUTO) 3 % (1-7); LYMPHOCYTES % (AUTO) 13 % (22-44); MEAN CORPUSCULAR HEMOGLOBIN 28.8 pg (27.5-34.5); MEAN CORPUSCULAR HGB CONC 33.2 g/dL (33.2-36.2); MONOCYTES % (AUTO) 8 % (2-9); NEUTROPHILS % (AUTO) 75 % (42-75); PLATELET COUNT 271 x10^3/uL (130-400); RED BLOOD COUNT 3.88 x10^6/uL (4.38-5.82); RED CELL DISTRIBUTION WIDTH 13.3 % (9.4-14.8)
[2020-11-25 05:03] LABS: MD NO
[2020-11-25 05:06] LABS: ALBUMIN 2.6 g/dL (3.4-5.0); ANION GAP 4 mmol/L (5-15); CALCIUM 8.3 mg/dL (8.5-10.1); CHLORIDE 109 mmol/L (98-107); CREATININE 1.55 mg/dL (0.7-1.3)
[2020-11-25] MEDS: HEPARIN 5,000 UNITS/ML, 1ML SQ SCH ×3 (05:39→21:26)
[2020-11-25 08:53] VITALS: BP 161/92
[2020-11-25] MEDS: BENZONATATE 100 MG CAPSULE PO SCH ×3 (08:55→21:24)
[2020-11-25] MEDS: GABAPENTIN 300 MG CAPSULE PO SCH ×2 (08:55→21:24)
[2020-11-25] MEDS: LEVOTHYROXINE 75 MCG TABLET PO SCH (08:55)
[2020-11-25] MEDS: CARVEDILOL 25 MG TABLET PO SCH ×2 (08:55→21:24)
[2020-11-25] MEDS: SODIUM CHLORIDE 0.9% 1,000 ML IV SCH ×2 (08:58→19:13)
[2020-11-25] MEDS ORDERED: SODIUM CHLORIDE 0.45% 1,000 ML IV SCH (09:00)
[2020-11-25] MEDS: OXYcodone IR 5MG TABLET PO PRN ×3 (10:07→21:21)
[2020-11-25 14:03] VITALS: BP 127/76
[2020-11-25] MEDS: ATORVASTATIN 40 MG TABLET PO SCH (21:24)
[2020-11-25 22:26] VITALS: BP 118/78
[2020-11-26 02:28] VITALS: BP 107/74
[2020-11-26] MEDS: SODIUM CHLORIDE 0.9% 1,000 ML IV SCH (04:55)
[2020-11-26 05:33] LABS: BASOPHILS % (AUTO) 1 % (0-1); EOSINOPHILS % (AUTO) 4 % (1-7); LYMPHOCYTES % (AUTO) 16 % (22-44); MEAN CORPUSCULAR HEMOGLOBIN 29.4 pg (27.5-34.5); MEAN CORPUSCULAR HGB CONC 33.3 g/dL (33.2-36.2); MEAN PLATELET VOLUME 7.2 fL (7.4-10.4); MONOCYTES % (AUTO) 10 % (2-9); NEUTROPHILS % (AUTO) 69 % (42-75); PLATELET COUNT 259 x10^3/uL (130-400); RED BLOOD COUNT 3.73 x10^6/uL (4.38-5.82); RED CELL DISTRIBUTION WIDTH 13.2 % (9.4-14.8)
[2020-11-26 05:36] LABS: MD NO
[2020-11-26 05:38] LABS: ANION GAP 4 mmol/L (5-15); CALCIUM 8.1 mg/dL (8.5-10.1); CHLORIDE 109 mmol/L (98-107)
[2020-11-26] MEDS: OXYcodone IR 5MG TABLET PO PRN ×3 (06:09→22:50)
[2020-11-26] MEDS: HEPARIN 5,000 UNITS/ML, 1ML SQ SCH ×3 (06:15→22:48)
[2020-11-26 09:59] VITALS: BP 118/74
[2020-11-26] MEDS: CARVEDILOL 25 MG TABLET PO SCH ×2 (10:27→22:49)
[2020-11-26] MEDS: GABAPENTIN 300 MG CAPSULE PO SCH ×2 (10:28→22:48)
[2020-11-26] MEDS: BENZONATATE 100 MG CAPSULE PO SCH ×3 (10:28→22:49)
[2020-11-26] MEDS: LEVOTHYROXINE 75 MCG TABLET PO SCH (10:28)
[2020-11-26 15:59] VITALS: BP 129/72
[2020-11-26] MEDS: SODIUM BICARBONATE 8.4% 150 MEQ in DEXTROSE 5% 1,000 ML IV SCH (16:53)
[2020-11-26 22:25] VITALS: BP 131/79
[2020-11-26] MEDS: ATORVASTATIN 40 MG TABLET PO SCH (22:48)
[2020-11-27 01:10] VITALS: BP 120/78
[2020-11-27] MEDS: ACETAMINOPHEN 325 MG TABLET PO PRN ×2 (04:09→16:37)
[2020-11-27] MEDS: SODIUM BICARBONATE 8.4% 150 MEQ in DEXTROSE 5% 1,000 ML IV SCH ×2 (04:27→16:29)
[2020-11-27 05:07] LABS: BASOPHILS % (AUTO) 1 % (0-1); EOSINOPHILS % (AUTO) 5 % (1-7); LYMPHOCYTES % (AUTO) 14 % (22-44); MEAN CORPUSCULAR HEMOGLOBIN 29.2 pg (27.5-34.5); MEAN CORPUSCULAR HGB CONC 33.4 g/dL (33.2-36.2); MEAN PLATELET VOLUME 7.3 fL (7.4-10.4); MONOCYTES % (AUTO) 8 % (2-9); NEUTROPHILS % (AUTO) 73 % (42-75); PLATELET COUNT 254 x10^3/uL (130-400); RED BLOOD COUNT 3.77 x10^6/uL (4.38-5.82); RED CELL DISTRIBUTION WIDTH 13.3 % (9.4-14.8)
[2020-11-27 05:15] LABS: ALBUMIN 2.5 g/dL (3.4-5.0); ANION GAP 5 mmol/L (5-15); CALCIUM 7.8 mg/dL (8.5-10.1); CHLORIDE 105 mmol/L (98-107); CREATININE 2.01 mg/dL (0.7-1.3); MD NO
[2020-11-27] MEDS: HEPARIN 5,000 UNITS/ML, 1ML SQ SCH ×3 (05:49→22:34)
[2020-11-27] MEDS: OXYcodone IR 5MG TABLET PO PRN ×4 (05:49→21:40)
[2020-11-27 07:04] VITALS: BP 101/64
[2020-11-27 10:12] VITALS: BP 131/76
[2020-11-27] MEDS: CARVEDILOL 25 MG TABLET PO SCH ×2 (10:13→21:41)
[2020-11-27] MEDS: LEVOTHYROXINE 75 MCG TABLET PO SCH (10:13)
[2020-11-27] MEDS: GABAPENTIN 300 MG CAPSULE PO SCH ×2 (10:13→21:40)
[2020-11-27] MEDS: BENZONATATE 100 MG CAPSULE PO SCH ×3 (10:13→21:41)
[2020-11-27 14:54] VITALS: BP 120/83
[2020-11-27] MEDS: SODIUM BICARBONATE 650 MG TABLET PO SCH ×2 (15:08→21:40)
[2020-11-27 18:15] VITALS: BP 136/77
[2020-11-27] MEDS: ATORVASTATIN 40 MG TABLET PO SCH (21:40)
[2020-11-28 00:49] VITALS: BP 146/81
[2020-11-28] MEDS: OXYcodone IR 5MG TABLET PO PRN ×4 (01:35→22:16)
[2020-11-28] MEDS: ACETAMINOPHEN 325 MG TABLET PO PRN ×3 (01:35→11:31)
[2020-11-28] MEDS: SODIUM BICARBONATE 8.4% 150 MEQ in DEXTROSE 5% 1,000 ML IV SCH (03:02)
[2020-11-28] MEDS: HEPARIN 5,000 UNITS/ML, 1ML SQ SCH ×2 (05:14→16:30)
[2020-11-28 05:43] LABS: ALBUMIN 2.6 g/dL (3.4-5.0); ANION GAP 4 mmol/L (5-15); CALCIUM 8.4 mg/dL (8.5-10.1); CHLORIDE 100 mmol/L (98-107)
[2020-11-28 05:55] LABS: CREATININE 2.04 mg/dL (0.7-1.3)
[2020-11-28 07:41] VITALS: BP 116/64
[2020-11-28 09:36] VITALS: BP 117/74
[2020-11-28] MEDS: BENZONATATE 100 MG CAPSULE PO SCH ×3 (09:37→22:15)
[2020-11-28] MEDS: LEVOTHYROXINE 75 MCG TABLET PO SCH (09:37)
[2020-11-28] MEDS: CARVEDILOL 25 MG TABLET PO SCH (09:37)
[2020-11-28] MEDS: GABAPENTIN 300 MG CAPSULE PO SCH ×2 (09:38→22:14)
[2020-11-28] MEDS: SODIUM BICARBONATE 650 MG TABLET PO SCH (09:38)
[2020-11-28] MEDS ORDERED: TORSEMIDE 20 MG TABLET PO SCH (13:00)
[2020-11-28 13:17] VITALS: BP 136/72
[2020-11-28 18:49] VITALS: BP 135/73
[2020-11-28] MEDS: CARVEDILOL 12.5 MG TABLET PO SCH (22:15)
[2020-11-28] MEDS: ATORVASTATIN 40 MG TABLET PO SCH (22:15)
[2020-11-29] MEDS: HEPARIN 5,000 UNITS/ML, 1ML SQ SCH ×3 (00:13→16:37)
[2020-11-29 00:52] VITALS: BP 139/80
[2020-11-29 05:05] LABS: BASOPHILS % (AUTO) 1 % (0-1); EOSINOPHILS % (AUTO) 6 % (1-7); LYMPHOCYTES % (AUTO) 14 % (22-44); MEAN CORPUSCULAR HEMOGLOBIN 29.7 pg (27.5-34.5); MEAN CORPUSCULAR HGB CONC 34.2 g/dL (33.2-36.2); MEAN PLATELET VOLUME 7.5 fL (7.4-10.4); MONOCYTES % (AUTO) 8 % (2-9); NEUTROPHILS % (AUTO) 71 % (42-75); PLATELET COUNT 258 x10^3/uL (130-400); RED BLOOD COUNT 3.57 x10^6/uL (4.38-5.82); RED CELL DISTRIBUTION WIDTH 13.7 % (9.4-14.8)
[2020-11-29 05:12] LABS: CALCIUM 8.2 mg/dL (8.5-10.1); CHLORIDE 98 mmol/L (98-107)
[2020-11-29 05:17] LABS: ALANINE AMINOTRANSFERASE 28 U/L (12-78); ALBUMIN 2.6 g/dL (3.4-5.0); ALKALINE PHOSPHATASE 88 U/L (45-117); ANION GAP 5 mmol/L (5-15); BILIRUBIN,TOTAL 0.5 mg/dL (0.2-1.0); CREATININE 1.92 mg/dL (0.7-1.3); TOTAL PROTEIN 6.7 g/dL (6.4-8.2)
[2020-11-29 05:23] LABS: MD NO
[2020-11-29 07:04] VITALS: BP 136/83
[2020-11-29] MEDS: CARVEDILOL 12.5 MG TABLET PO SCH ×2 (08:12→20:15)
[2020-11-29] MEDS: ACETAMINOPHEN 325 MG TABLET PO PRN ×2 (08:12→22:23)
[2020-11-29] MEDS: BENZONATATE 100 MG CAPSULE PO SCH ×3 (08:13→20:11)
[2020-11-29] MEDS: GABAPENTIN 300 MG CAPSULE PO SCH ×2 (08:13→20:10)
[2020-11-29] MEDS: LEVOTHYROXINE 75 MCG TABLET PO SCH (08:13)
[2020-11-29 10:55] VITALS: BP 120/83
[2020-11-29] MEDS: TORSEMIDE 20 MG TABLET PO SCH (10:58)
[2020-11-29] MEDS: OXYcodone IR 5MG TABLET PO PRN ×2 (11:28→22:23)
[2020-11-29 13:16] VITALS: BP 134/79
[2020-11-29] MEDS: ATORVASTATIN 40 MG TABLET PO SCH (20:15)
[2020-11-29] MEDS: LORazepam 0.5MG TABLET PO PRN (20:15)
[2020-11-29 20:17] VITALS: BP 115/61
[2020-11-30] MEDS: HEPARIN 5,000 UNITS/ML, 1ML SQ SCH ×3 (00:10→16:08)
[2020-11-30 00:43] VITALS: BP 142/85
[2020-11-30] MEDS: OXYcodone IR 5MG TABLET PO PRN ×4 (03:44→21:13)
[2020-11-30 06:43] LABS: BASOPHILS % (AUTO) 1 % (0-1); EOSINOPHILS % (AUTO) 5 % (1-7); LYMPHOCYTES % (AUTO) 15 % (22-44); MEAN CORPUSCULAR HEMOGLOBIN 29.6 pg (27.5-34.5); MEAN CORPUSCULAR HGB CONC 33.8 g/dL (33.2-36.2); MEAN PLATELET VOLUME 7.5 fL (7.4-10.4); MONOCYTES % (AUTO) 10 % (2-9); NEUTROPHILS % (AUTO) 69 % (42-75); PLATELET COUNT 240 x10^3/uL (130-400); RED BLOOD COUNT 3.47 x10^6/uL (4.38-5.82); RED CELL DISTRIBUTION WIDTH 13.8 % (9.4-14.8)
[2020-11-30 06:44] LABS: MD NO
[2020-11-30 06:49] VITALS: BP 111/72
[2020-11-30 06:55] LABS: ALBUMIN 2.6 g/dL (3.4-5.0); ANION GAP 6 mmol/L (5-15); CALCIUM 8.6 mg/dL (8.5-10.1); CHLORIDE 101 mmol/L (98-107); IRON LEVEL 41 mcg/dL (65-175)
[2020-11-30 07:01] LABS: % IRON SATURATION 13 % (20-55); TOTAL IRON BINDING CAPACITY 326 mcg/dL (250-450)
[2020-11-30] MEDS: LORazepam 0.5MG TABLET PO PRN ×2 (08:07→21:12)
[2020-11-30] MEDS: BENZONATATE 100 MG CAPSULE PO SCH ×3 (08:07→21:12)
[2020-11-30] MEDS: GABAPENTIN 300 MG CAPSULE PO SCH ×2 (08:08→21:11)
[2020-11-30] MEDS: LEVOTHYROXINE 75 MCG TABLET PO SCH (08:08)
[2020-11-30] MEDS: CARVEDILOL 12.5 MG TABLET PO SCH ×2 (08:08→21:12)
[2020-11-30] MEDS: TORSEMIDE 20 MG TABLET PO SCH (08:09)
[2020-11-30] MEDS: ACETAMINOPHEN 325 MG TABLET PO PRN ×2 (11:35→15:05)
[2020-11-30] MEDS: GUAIFENESIN/DM 100-10MG, 5ML UDC PO PRN (12:10)
[2020-11-30] MEDS: IRON SUCROSE COMPLEX 100MG/5ML IV SCH (12:10)
[2020-11-30] MEDS: SODIUM BICARBONATE 650 MG TABLET PO SCH (12:11)
[2020-11-30] MEDS ORDERED: TORSEMIDE 20 MG TABLET PO ONE ×2 (13:00)
[2020-11-30 14:10] VITALS: BP 116/73
[2020-11-30 20:18] VITALS: BP 130/75
[2020-11-30] MEDS ORDERED: MAGNESIUM SULFATE PMX 2GM/50ML 50 ML IV ONE (20:30)
[2020-11-30] MEDS: ATORVASTATIN 40 MG TABLET PO SCH (21:11)
[2020-12-01] MEDS: HEPARIN 5,000 UNITS/ML, 1ML SQ SCH ×3 (00:52→15:28)
[2020-12-01 03:23] VITALS: BP 124/78
[2020-12-01 05:11] LABS: BASOPHILS % (AUTO) 1 % (0-1); EOSINOPHILS % (AUTO) 10 % (1-7); LYMPHOCYTES % (AUTO) 13 % (22-44); MEAN CORPUSCULAR HEMOGLOBIN 30.1 pg (27.5-34.5); MEAN CORPUSCULAR HGB CONC 34.6 g/dL (33.2-36.2); MEAN PLATELET VOLUME 7.2 fL (7.4-10.4); MONOCYTES % (AUTO) 10 % (2-9); NEUTROPHILS % (AUTO) 66 % (42-75); PLATELET COUNT 289 x10^3/uL (130-400); RED BLOOD COUNT 3.24 x10^6/uL (4.38-5.82); RED CELL DISTRIBUTION WIDTH 13.4 % (9.4-14.8)
[2020-12-01 05:14] LABS: MD NO
[2020-12-01 05:21] LABS: ALANINE AMINOTRANSFERASE 35 U/L (12-78); ALBUMIN 2.7 g/dL (3.4-5.0); ANION GAP 7 mmol/L (5-15); CALCIUM 8.8 mg/dL (8.5-10.1); CHLORIDE 101 mmol/L (98-107)
[2020-12-01 05:23] LABS: ALKALINE PHOSPHATASE 95 U/L (45-117); BILIRUBIN,TOTAL 0.3 mg/dL (0.2-1.0)
[2020-12-01] MEDS: ACETAMINOPHEN 325 MG TABLET PO PRN ×2 (05:50→13:35)
[2020-12-01 06:45] VITALS: BP 121/73
[2020-12-01] MEDS: GUAIFENESIN/DM 100-10MG, 5ML UDC PO PRN ×3 (08:54→21:10)
[2020-12-01] MEDS: TORSEMIDE 20 MG TABLET PO SCH (08:55)
[2020-12-01] MEDS: OXYcodone IR 5MG TABLET PO PRN ×3 (08:57→21:01)
[2020-12-01] MEDS: CARVEDILOL 12.5 MG TABLET PO SCH ×2 (08:57→21:11)
[2020-12-01] MEDS: GABAPENTIN 300 MG CAPSULE PO SCH ×2 (08:57→21:11)
[2020-12-01] MEDS: SODIUM BICARBONATE 650 MG TABLET PO SCH ×3 (08:57→21:11)
[2020-12-01] MEDS: ESCITALOPRAM 10MG TABLET PO SCH (08:58)
[2020-12-01] MEDS: LEVOTHYROXINE 75 MCG TABLET PO SCH (08:58)
[2020-12-01] MEDS: IRON SUCROSE COMPLEX 100MG/5ML IV SCH (08:59)
[2020-12-01] MEDS: BENZONATATE 100 MG CAPSULE PO SCH ×3 (08:59→21:12)
[2020-12-01 12:32] VITALS: BP 123/74
[2020-12-01 20:00] VITALS: BP 113/75
[2020-12-01] MEDS: LORazepam 0.5MG TABLET PO PRN (21:00)
[2020-12-01] MEDS: ATORVASTATIN 40 MG TABLET PO SCH (21:11)
[2020-12-02 02:00] VITALS: BP 119/75
[2020-12-02] MEDS: HEPARIN 5,000 UNITS/ML, 1ML SQ SCH ×3 (02:16→17:53)
[2020-12-02] MEDS: OXYcodone IR 5MG TABLET PO PRN ×4 (02:19→21:55)
[2020-12-02 06:45] VITALS: BP 110/70
[2020-12-02 07:21] LABS: BASOPHILS % (AUTO) 1 % (0-1); EOSINOPHILS % (AUTO) 9 % (1-7); LYMPHOCYTES % (AUTO) 13 % (22-44); MEAN PLATELET VOLUME 6.8 fL (7.4-10.4); MONOCYTES % (AUTO) 10 % (2-9); NEUTROPHILS % (AUTO) 69 % (42-75); PLATELET COUNT 286 x10^3/uL (130-400); RED BLOOD COUNT 3.51 x10^6/uL (4.38-5.82); RED CELL DISTRIBUTION WIDTH 13.8 % (9.4-14.8)
[2020-12-02 07:25] LABS: MD NO
[2020-12-02 07:31] LABS: CHLORIDE 99 mmol/L (98-107)
[2020-12-02 07:40] LABS: ALANINE AMINOTRANSFERASE 31 U/L (12-78); ALBUMIN 2.9 g/dL (3.4-5.0); ALKALINE PHOSPHATASE 109 U/L (45-117); ANION GAP 8 mmol/L (5-15); BILIRUBIN,TOTAL 0.6 mg/dL (0.2-1.0); CALCIUM 8.7 mg/dL (8.5-10.1); CREATININE 2.12 mg/dL (0.7-1.3); TOTAL PROTEIN 7.8 g/dL (6.4-8.2)
[2020-12-02] MEDS: IRON SUCROSE COMPLEX 100MG/5ML IV SCH (08:37)
[2020-12-02] MEDS: CARVEDILOL 12.5 MG TABLET PO SCH (08:37)
[2020-12-02] MEDS: TORSEMIDE 20 MG TABLET PO SCH (08:38)
[2020-12-02] MEDS: ESCITALOPRAM 10MG TABLET PO SCH (08:38)
[2020-12-02] MEDS: GABAPENTIN 300 MG CAPSULE PO SCH ×2 (08:38→21:36)
[2020-12-02] MEDS: BENZONATATE 100 MG CAPSULE PO SCH ×3 (08:39→21:36)
[2020-12-02] MEDS: SODIUM BICARBONATE 650 MG TABLET PO SCH ×2 (08:39→21:36)
[2020-12-02] MEDS: LEVOTHYROXINE 75 MCG TABLET PO SCH (08:39)
[2020-12-02] MEDS: GUAIFENESIN/DM 100-10MG, 5ML UDC PO PRN ×3 (08:45→23:38)
[2020-12-02] MEDS: ACETAMINOPHEN 325 MG TABLET PO PRN ×2 (12:47→21:55)
[2020-12-02 15:55] VITALS: BP 100/63
[2020-12-02 17:12] VITALS: BP 122/80
[2020-12-02 20:27] VITALS: BP 126/76
[2020-12-02] MEDS: CARVEDILOL 6.25 MG TABLET PO SCH (21:36)
[2020-12-02] MEDS: ATORVASTATIN 40 MG TABLET PO SCH (21:37)
[2020-12-02] MEDS: LORazepam 0.5MG TABLET PO PRN (23:38)
[2020-12-03] MEDS: HEPARIN 5,000 UNITS/ML, 1ML SQ SCH ×3 (02:21→18:04)
[2020-12-03 02:41] VITALS: BP 121/70
[2020-12-03 06:30] LABS: BASOPHILS % (AUTO) 1 % (0-1); EOSINOPHILS % (AUTO) 7 % (1-7); LYMPHOCYTES % (AUTO) 14 % (22-44); MEAN CORPUSCULAR HEMOGLOBIN 29.6 pg (27.5-34.5); MEAN CORPUSCULAR HGB CONC 33.9 g/dL (33.2-36.2); MEAN PLATELET VOLUME 6.9 fL (7.4-10.4); MONOCYTES % (AUTO) 10 % (2-9); NEUTROPHILS % (AUTO) 68 % (42-75); PLATELET COUNT 296 x10^3/uL (130-400); RED BLOOD COUNT 3.51 x10^6/uL (4.38-5.82); RED CELL DISTRIBUTION WIDTH 13.6 % (9.4-14.8)
[2020-12-03 06:39] LABS: MD NO
[2020-12-03 06:40] LABS: ALANINE AMINOTRANSFERASE 25 U/L (12-78); ALBUMIN 2.8 g/dL (3.4-5.0); ANION GAP 7 mmol/L (5-15); CALCIUM 8.8 mg/dL (8.5-10.1); CHLORIDE 101 mmol/L (98-107); CREATININE 2.26 mg/dL (0.7-1.3)
[2020-12-03 06:42] LABS: ALKALINE PHOSPHATASE 96 U/L (45-117); BILIRUBIN,TOTAL 0.4 mg/dL (0.2-1.0); TOTAL PROTEIN 7.4 g/dL (6.4-8.2)
[2020-12-03 07:54] VITALS: BP 130/85
[2020-12-03] MEDS: GABAPENTIN 300 MG CAPSULE PO SCH ×2 (09:02→20:02)
[2020-12-03] MEDS: BENZONATATE 100 MG CAPSULE PO SCH ×3 (09:02→20:02)
[2020-12-03] MEDS: SODIUM BICARBONATE 650 MG TABLET PO SCH ×2 (09:02→20:02)
[2020-12-03] MEDS: TORSEMIDE 20 MG TABLET PO SCH (09:03)
[2020-12-03] MEDS: CARVEDILOL 6.25 MG TABLET PO SCH ×2 (09:03→20:02)
[2020-12-03] MEDS: ESCITALOPRAM 10MG TABLET PO SCH (09:03)
[2020-12-03] MEDS: LEVOTHYROXINE 75 MCG TABLET PO SCH (09:04)
[2020-12-03] MEDS: IRON SUCROSE COMPLEX 100MG/5ML IV SCH (09:04)
[2020-12-03] MEDS: ACETAMINOPHEN 325 MG TABLET PO PRN (09:20)
[2020-12-03] MEDS: GUAIFENESIN/DM 100-10MG, 5ML UDC PO PRN ×2 (10:39→16:10)
[2020-12-03 13:15] VITALS: BP 126/73
[2020-12-03] MEDS: OXYcodone IR 5MG TABLET PO PRN ×2 (16:11→20:17)
[2020-12-03 19:38] VITALS: BP 141/75
[2020-12-03] MEDS: ATORVASTATIN 40 MG TABLET PO SCH (20:02)
[2020-12-04] MEDS: LORazepam 0.5MG TABLET PO PRN (00:09)
[2020-12-04] MEDS: OXYcodone IR 5MG TABLET PO PRN ×3 (00:09→15:38)
[2020-12-04 01:32] VITALS: BP 135/85
[2020-12-04] MEDS: HEPARIN 5,000 UNITS/ML, 1ML SQ SCH ×3 (02:42→17:55)
[2020-12-04] MEDS: ACETAMINOPHEN 325 MG TABLET PO PRN ×2 (02:49→23:26)
[2020-12-04 05:17] LABS: BASOPHILS % (AUTO) 1 % (0-1); EOSINOPHILS % (AUTO) 5 % (1-7); LYMPHOCYTES % (AUTO) 15 % (22-44); MEAN CORPUSCULAR HEMOGLOBIN 29.7 pg (27.5-34.5); MEAN CORPUSCULAR HGB CONC 34.3 g/dL (33.2-36.2); MEAN PLATELET VOLUME 6.6 fL (7.4-10.4); MONOCYTES % (AUTO) 11 % (2-9); NEUTROPHILS % (AUTO) 69 % (42-75); PLATELET COUNT 275 x10^3/uL (130-400); RED BLOOD COUNT 3.54 x10^6/uL (4.38-5.82); RED CELL DISTRIBUTION WIDTH 14.1 % (9.4-14.8)
[2020-12-04 05:25] LABS: MD NO
[2020-12-04 05:26] LABS: ANION GAP 5 mmol/L (5-15); CALCIUM 8.7 mg/dL (8.5-10.1); CHLORIDE 101 mmol/L (98-107)
[2020-12-04 07:52] VITALS: BP 125/80
[2020-12-04] MEDS: IRON SUCROSE COMPLEX 100MG/5ML IV SCH (08:36)
[2020-12-04] MEDS: ESCITALOPRAM 10MG TABLET PO SCH (08:36)
[2020-12-04] MEDS: BENZONATATE 100 MG CAPSULE PO SCH ×3 (08:36→23:25)
[2020-12-04] MEDS: SODIUM BICARBONATE 650 MG TABLET PO SCH ×2 (08:36→23:26)
[2020-12-04] MEDS: LEVOTHYROXINE 75 MCG TABLET PO SCH (08:36)
[2020-12-04] MEDS: GABAPENTIN 300 MG CAPSULE PO SCH ×2 (08:37→23:26)
[2020-12-04] MEDS: TORSEMIDE 20 MG TABLET PO SCH (08:37)
[2020-12-04] MEDS: CARVEDILOL 6.25 MG TABLET PO SCH ×2 (08:37→23:32)
[2020-12-04] MEDS: OXYcodone/APAP 10/325MG TABLET PO PRN (13:00)
[2020-12-04 14:03] VITALS: BP 138/78
[2020-12-04 19:15] VITALS: BP 108/75
[2020-12-04 23:25] VITALS: BP 120/76
[2020-12-04] MEDS: ATORVASTATIN 40 MG TABLET PO SCH (23:26)
[2020-12-04] MEDS: GUAIFENESIN/DM 100-10MG, 5ML UDC PO PRN (23:41)
[2020-12-05 01:01] VITALS: BP 137/81
[2020-12-05] MEDS: HEPARIN 5,000 UNITS/ML, 1ML SQ SCH ×3 (02:29→17:58)
[2020-12-05 06:10] LABS: BASOPHILS % (AUTO) 1 % (0-1); EOSINOPHILS % (AUTO) 4 % (1-7); LYMPHOCYTES % (AUTO) 14 % (22-44); MEAN CORPUSCULAR HEMOGLOBIN 29.4 pg (27.5-34.5); MEAN CORPUSCULAR HGB CONC 33.6 g/dL (33.2-36.2); MEAN PLATELET VOLUME 6.6 fL (7.4-10.4); MONOCYTES % (AUTO) 11 % (2-9); NEUTROPHILS % (AUTO) 70 % (42-75); PLATELET COUNT 288 x10^3/uL (130-400); RED BLOOD COUNT 3.62 x10^6/uL (4.38-5.82); RED CELL DISTRIBUTION WIDTH 14.1 % (9.4-14.8)
[2020-12-05 06:15] LABS: MD NO
[2020-12-05 06:24] LABS: CHLORIDE 99 mmol/L (98-107)
[2020-12-05] MEDS: TORSEMIDE 20 MG TABLET PO SCH (08:12)
[2020-12-05] MEDS: GABAPENTIN 300 MG CAPSULE PO SCH ×2 (08:13→22:05)
[2020-12-05] MEDS: LEVOTHYROXINE 75 MCG TABLET PO SCH (08:13)
[2020-12-05] MEDS: ESCITALOPRAM 10MG TABLET PO SCH (08:13)
[2020-12-05] MEDS: SODIUM BICARBONATE 650 MG TABLET PO SCH ×2 (08:13→22:05)
[2020-12-05] MEDS: CARVEDILOL 6.25 MG TABLET PO SCH ×2 (08:13→22:06)
[2020-12-05] MEDS: BENZONATATE 100 MG CAPSULE PO SCH ×3 (08:13→22:04)
[2020-12-05 08:20] VITALS: BP 106/74
[2020-12-05 08:34] LABS: ANION GAP 7 mmol/L (5-15)
[2020-12-05 08:36] LABS: CREATININE 2.88 mg/dL (0.7-1.3)
[2020-12-05] MEDS ORDERED: SODIUM ZIRCONIUM CYCLOSILICATE 10 GM PO ONE (09:30)
[2020-12-05] MEDS: SODIUM CHLORIDE 0.9% 500 ML IV SCH ×3 (09:30→19:30)
[2020-12-05] MEDS: OXYcodone/APAP 10/325MG TABLET PO PRN (10:19)
[2020-12-05] MEDS: SODIUM ZIRCONIUM CYCLOSILICATE 10 GM PO SCH ×2 (12:00→18:49)
[2020-12-05 14:55] VITALS: BP 123/71
[2020-12-05] MEDS: OXYcodone IR 5MG TABLET PO PRN ×2 (16:36→22:05)
[2020-12-05] MEDS: GUAIFENESIN/DM 100-10MG, 5ML UDC PO PRN ×2 (16:48→22:06)
[2020-12-05 20:54] VITALS: BP 136/73
[2020-12-05] MEDS: ATORVASTATIN 40 MG TABLET PO SCH (22:06)
[2020-12-06] MEDS: SODIUM CHLORIDE 0.9% 500 ML IV SCH ×6 (00:30→23:48)
[2020-12-06] MEDS: OXYcodone/APAP 10/325MG TABLET PO PRN ×2 (00:34→16:50)
[2020-12-06 01:51] VITALS: BP 112/71
[2020-12-06] MEDS: HEPARIN 5,000 UNITS/ML, 1ML SQ SCH ×3 (02:38→16:50)
[2020-12-06] MEDS: OXYcodone IR 5MG TABLET PO PRN ×3 (02:38→21:30)
[2020-12-06 05:42] LABS: BASOPHILS % (AUTO) 1 % (0-1); EOSINOPHILS % (AUTO) 5 % (1-7); LYMPHOCYTES % (AUTO) 15 % (22-44); MEAN CORPUSCULAR HEMOGLOBIN 29.9 pg (27.5-34.5); MEAN CORPUSCULAR HGB CONC 33.9 g/dL (33.2-36.2); MEAN PLATELET VOLUME 6.4 fL (7.4-10.4); MONOCYTES % (AUTO) 11 % (2-9); NEUTROPHILS % (AUTO) 69 % (42-75); PLATELET COUNT 284 x10^3/uL (130-400); RED CELL DISTRIBUTION WIDTH 14.3 % (9.4-14.8)
[2020-12-06 05:46] LABS: MD NO
[2020-12-06] MEDS: SODIUM ZIRCONIUM CYCLOSILICATE 10 GM PO SCH ×2 (05:48→19:28)
[2020-12-06 06:02] LABS: CHLORIDE 101 mmol/L (98-107)
[2020-12-06 06:10] LABS: ALANINE AMINOTRANSFERASE 26 U/L (12-78); ALBUMIN 2.8 g/dL (3.4-5.0); ALKALINE PHOSPHATASE 104 U/L (45-117); ANION GAP 8 mmol/L (5-15); BILIRUBIN,TOTAL 0.3 mg/dL (0.2-1.0); CALCIUM 8.7 mg/dL (8.5-10.1); CREATININE 3.34 mg/dL (0.7-1.3); TOTAL PROTEIN 7.5 g/dL (6.4-8.2)
[2020-12-06 07:19] VITALS: BP 119/70
[2020-12-06] MEDS: LEVOTHYROXINE 75 MCG TABLET PO SCH (09:59)
[2020-12-06] MEDS: GUAIFENESIN/DM 100-10MG, 5ML UDC PO PRN ×2 (09:59→21:28)
[2020-12-06] MEDS: GABAPENTIN 300 MG CAPSULE PO SCH ×2 (09:59→21:29)
[2020-12-06] MEDS: BENZONATATE 100 MG CAPSULE PO SCH ×3 (10:00→21:29)
[2020-12-06] MEDS: SODIUM BICARBONATE 650 MG TABLET PO SCH ×2 (10:00→21:29)
[2020-12-06] MEDS: CARVEDILOL 6.25 MG TABLET PO SCH ×2 (10:00→21:29)
[2020-12-06] MEDS: ESCITALOPRAM 10MG TABLET PO SCH (10:00)
[2020-12-06] MEDS: SODIUM BICARBONATE 8.4% 75 MEQ in SODIUM CHLORIDE 0.45% 1,000 ML IV SCH ×2 (10:02→21:28)
[2020-12-06 15:59] VITALS: BP 107/71
[2020-12-06 18:53] VITALS: BP 113/75
[2020-12-06] MEDS: ATORVASTATIN 40 MG TABLET PO SCH (21:29)
[2020-12-07] MEDS: HEPARIN 5,000 UNITS/ML, 1ML SQ SCH ×2 (01:51→10:37)
[2020-12-07] MEDS: OXYcodone IR 5MG TABLET PO PRN ×2 (01:52→18:16)
[2020-12-07 02:35] VITALS: BP 105/71
[2020-12-07] MEDS: ACETAMINOPHEN 325 MG TABLET PO PRN (03:29)
[2020-12-07] MEDS: GUAIFENESIN/DM 100-10MG, 5ML UDC PO PRN ×3 (03:29→22:32)
[2020-12-07] MEDS: SODIUM CHLORIDE 0.9% 500 ML IV SCH (04:44)
[2020-12-07] MEDS: SODIUM ZIRCONIUM CYCLOSILICATE 10 GM PO SCH ×2 (05:31→19:35)
[2020-12-07 05:41] LABS: ALANINE AMINOTRANSFERASE 24 U/L (12-78); ALBUMIN 2.6 g/dL (3.4-5.0); ANION GAP 8 mmol/L (5-15); CALCIUM 8.5 mg/dL (8.5-10.1); CHLORIDE 101 mmol/L (98-107); CREATININE 3.06 mg/dL (0.7-1.3)
[2020-12-07 05:42] LABS: BASOPHILS % (AUTO) 0 % (0-1); EOSINOPHILS % (AUTO) 5 % (1-7); LYMPHOCYTES % (AUTO) 14 % (22-44); MEAN CORPUSCULAR HEMOGLOBIN 29.9 pg (27.5-34.5); MEAN CORPUSCULAR HGB CONC 34.1 g/dL (33.2-36.2); MEAN PLATELET VOLUME 6.4 fL (7.4-10.4); MONOCYTES % (AUTO) 11 % (2-9); NEUTROPHILS % (AUTO) 69 % (42-75); PLATELET COUNT 261 x10^3/uL (130-400); RED BLOOD COUNT 3.44 x10^6/uL (4.38-5.82); RED CELL DISTRIBUTION WIDTH 14.6 % (9.4-14.8)
[2020-12-07 05:43] LABS: ALKALINE PHOSPHATASE 99 U/L (45-117); BILIRUBIN,TOTAL 0.3 mg/dL (0.2-1.0); TOTAL PROTEIN 7.2 g/dL (6.4-8.2)
[2020-12-07 05:47] LABS: MD NO
[2020-12-07] MEDS: BENZONATATE 100 MG CAPSULE PO SCH ×4 (08:10→21:43)
[2020-12-07] MEDS: ESCITALOPRAM 10MG TABLET PO SCH (08:10)
[2020-12-07] MEDS: GABAPENTIN 300 MG CAPSULE PO SCH ×2 (08:10→21:43)
[2020-12-07] MEDS: LEVOTHYROXINE 75 MCG TABLET PO SCH (08:11)
[2020-12-07] MEDS: SODIUM BICARBONATE 650 MG TABLET PO SCH ×2 (08:11→21:43)
[2020-12-07] MEDS: CARVEDILOL 6.25 MG TABLET PO SCH ×2 (08:11→21:43)
[2020-12-07] MEDS: OXYcodone/APAP 10/325MG TABLET PO PRN ×3 (08:11→22:32)
[2020-12-07 09:18] VITALS: BP 90/60
[2020-12-07] MEDS: SODIUM BICARBONATE 8.4% 75 MEQ in SODIUM CHLORIDE 0.45% 1,000 ML IV SCH ×2 (09:42→21:44)
[2020-12-07 14:30] VITALS: BP 136/74
[2020-12-07 20:18] VITALS: BP 138/76
[2020-12-07] MEDS: APIXABAN 5 MG TABLET PO SCH (21:43)
[2020-12-07] MEDS: ATORVASTATIN 40 MG TABLET PO SCH (21:43)
[2020-12-08 01:31] VITALS: BP 129/73
[2020-12-08 05:43] LABS: MEAN CORPUSCULAR HGB CONC 34.6 g/dL (33.2-36.2); MEAN PLATELET VOLUME 6.2 fL (7.4-10.4); PLATELET COUNT 271 x10^3/uL (130-400); RED BLOOD COUNT 3.33 x10^6/uL (4.38-5.82); RED CELL DISTRIBUTION WIDTH 14.3 % (9.4-14.8)
[2020-12-08 05:57] LABS: ALBUMIN 2.5 g/dL (3.4-5.0); ANION GAP 7 mmol/L (5-15); CALCIUM 8.5 mg/dL (8.5-10.1); CHLORIDE 101 mmol/L (98-107)
[2020-12-08] MEDS: SODIUM ZIRCONIUM CYCLOSILICATE 10 GM PO SCH ×2 (05:59→21:12)
[2020-12-08 06:01] LABS: ALANINE AMINOTRANSFERASE 27 U/L (12-78); ALKALINE PHOSPHATASE 107 U/L (45-117); BILIRUBIN,TOTAL 0.3 mg/dL (0.2-1.0); CREATININE 2.66 mg/dL (0.7-1.3); TOTAL PROTEIN 7.2 g/dL (6.4-8.2)
[2020-12-08 06:29] LABS: MD YES
[2020-12-08 06:30] LABS: ANISOCYTOSIS 1+; BAND#(MANUAL) 0.24 x10^3/uL; BANDS%(MANUAL) 2 % (0-7); EOS#(MANUAL) 0.35 x10^3/uL (0.0-0.4); EOS% (MANUAL) 3 % (1-7); LYMPH#(MANUAL) 2.12 x10^3/uL (1-3.4); LYMPHS% (MANUAL) 18 % (22-44); METAMYELOCYTES# (MANUAL) 0.12 x10^3/uL (0-0); METAMYELOCYTES% (MANUAL) 1 % (0-1); MONOS#(MANUAL) 1.06 x10^3/uL (0.3-2.7); MONOS% (MANUAL) 9 % (2-9); POLYCHROMASIA 1+; SEG#(MANUAL) 7.91 x10^3/uL (1.8-6.8); SEGS% (MANUAL) 67 % (42-75)
[2020-12-08 06:31] LABS: <PLATELET ESTIMATE> ADEQUATE; <PLT MORPHOLOGY> NORMAL PLT MORPH
[2020-12-08 07:20] VITALS: BP 118/74
[2020-12-08] MEDS: GABAPENTIN 300 MG CAPSULE PO SCH ×2 (08:03→23:12)
[2020-12-08] MEDS: APIXABAN 5 MG TABLET PO SCH ×2 (08:03→23:12)
[2020-12-08] MEDS: CARVEDILOL 6.25 MG TABLET PO SCH ×2 (08:03→23:12)
[2020-12-08] MEDS: LEVOTHYROXINE 75 MCG TABLET PO SCH (08:03)
[2020-12-08] MEDS: ESCITALOPRAM 10MG TABLET PO SCH (08:03)
[2020-12-08] MEDS: GUAIFENESIN/DM 100-10MG, 5ML UDC PO PRN ×3 (08:03→23:11)
[2020-12-08] MEDS: SODIUM BICARBONATE 8.4% 75 MEQ in SODIUM CHLORIDE 0.45% 1,000 ML IV SCH ×2 (08:03→19:29)
[2020-12-08] MEDS: ACETAMINOPHEN 325 MG TABLET PO PRN (08:03)
[2020-12-08] MEDS: SODIUM BICARBONATE 650 MG TABLET PO SCH ×2 (08:03→23:11)
[2020-12-08] MEDS: BENZONATATE 100 MG CAPSULE PO SCH ×3 (08:03→23:11)
[2020-12-08] MEDS: OXYcodone IR 5MG TABLET PO PRN ×2 (08:47→19:33)
[2020-12-08] MEDS ORDERED: LORazepam 2 MG/ML, 1ML IVPush ONE (09:30)
[2020-12-08 15:04] VITALS: BP 132/75
[2020-12-08] MEDS: OXYcodone/APAP 10/325MG TABLET PO PRN ×2 (16:28→23:11)
[2020-12-08 18:47] VITALS: BP 122/71
[2020-12-08] MEDS: ATORVASTATIN 40 MG TABLET PO SCH (23:11)
[2020-12-09 02:36] VITALS: BP 130/76
[2020-12-09 05:55] LABS: BASOPHILS % (AUTO) 1 % (0-1); EOSINOPHILS % (AUTO) 6 % (1-7); LYMPHOCYTES % (AUTO) 12 % (22-44); MEAN CORPUSCULAR HEMOGLOBIN 29.4 pg (27.5-34.5); MEAN CORPUSCULAR HGB CONC 33.8 g/dL (33.2-36.2); MEAN PLATELET VOLUME 6.1 fL (7.4-10.4); MONOCYTES % (AUTO) 10 % (2-9); NEUTROPHILS % (AUTO) 72 % (42-75); PLATELET COUNT 279 x10^3/uL (130-400); RED BLOOD COUNT 3.54 x10^6/uL (4.38-5.82); RED CELL DISTRIBUTION WIDTH 14.4 % (9.4-14.8)
[2020-12-09 06:05] LABS: ANION GAP 5 mmol/L (5-15); CALCIUM 8.5 mg/dL (8.5-10.1); CHLORIDE 102 mmol/L (98-107); CREATININE 2.33 mg/dL (0.7-1.3)
[2020-12-09] MEDS: SODIUM ZIRCONIUM CYCLOSILICATE 10 GM PO SCH (06:14)
[2020-12-09] MEDS: SODIUM BICARBONATE 8.4% 75 MEQ in SODIUM CHLORIDE 0.45% 1,000 ML IV SCH (06:16)
[2020-12-09 06:19] LABS: MD NO
[2020-12-09] MEDS: BENZONATATE 100 MG CAPSULE PO SCH ×3 (08:36→21:07)
[2020-12-09] MEDS: GABAPENTIN 300 MG CAPSULE PO SCH ×2 (08:36→21:07)
[2020-12-09] MEDS: GUAIFENESIN/DM 100-10MG, 5ML UDC PO PRN ×2 (08:36→14:18)
[2020-12-09] MEDS: CARVEDILOL 6.25 MG TABLET PO SCH ×2 (08:37→21:06)
[2020-12-09] MEDS: APIXABAN 5 MG TABLET PO SCH ×2 (08:37→21:06)
[2020-12-09] MEDS: ESCITALOPRAM 10MG TABLET PO SCH (08:37)
[2020-12-09] MEDS: SODIUM BICARBONATE 650 MG TABLET PO SCH ×2 (08:37→21:07)
[2020-12-09] MEDS: LEVOTHYROXINE 75 MCG TABLET PO SCH (08:37)
[2020-12-09] MEDS: OXYcodone IR 5MG TABLET PO PRN ×2 (08:38→21:53)
[2020-12-09 09:40] VITALS: BP 129/77
[2020-12-09 14:15] VITALS: BP 136/88
[2020-12-09] MEDS: OXYcodone/APAP 10/325MG TABLET PO PRN (17:43)
[2020-12-09 19:42] VITALS: BP 129/74
[2020-12-09] MEDS: ATORVASTATIN 40 MG TABLET PO SCH (21:06)
[2020-12-09] MEDS: ACETAMINOPHEN 325 MG TABLET PO PRN (21:52)
[2020-12-10 01:25] VITALS: BP 118/76
[2020-12-10 05:28] LABS: ALANINE AMINOTRANSFERASE 26 U/L (12-78); ALBUMIN 2.5 g/dL (3.4-5.0); ANION GAP 5 mmol/L (5-15); CALCIUM 8.4 mg/dL (8.5-10.1); CHLORIDE 101 mmol/L (98-107); CREATININE 2.19 mg/dL (0.7-1.3)
[2020-12-10 05:30] LABS: ALKALINE PHOSPHATASE 106 U/L (45-117); BILIRUBIN,TOTAL 0.3 mg/dL (0.2-1.0); TOTAL PROTEIN 7.1 g/dL (6.4-8.2)
[2020-12-10 06:50] VITALS: BP 127/82
[2020-12-10] MEDS: GABAPENTIN 300 MG CAPSULE PO SCH ×2 (08:12→21:07)
[2020-12-10] MEDS: CARVEDILOL 6.25 MG TABLET PO SCH ×2 (08:12→21:06)
[2020-12-10] MEDS: SODIUM BICARBONATE 650 MG TABLET PO SCH ×2 (08:13→21:08)
[2020-12-10] MEDS: LEVOTHYROXINE 75 MCG TABLET PO SCH (08:13)
[2020-12-10] MEDS: BENZONATATE 100 MG CAPSULE PO SCH ×3 (08:13→21:08)
[2020-12-10] MEDS: ACETAMINOPHEN 325 MG TABLET PO PRN ×3 (08:13→21:16)
[2020-12-10] MEDS: APIXABAN 5 MG TABLET PO SCH ×2 (08:13→21:07)
[2020-12-10] MEDS: ESCITALOPRAM 10MG TABLET PO SCH (08:13)
[2020-12-10] MEDS: OXYcodone IR 5MG TABLET PO PRN ×3 (08:14→21:09)
[2020-12-10 12:36] VITALS: BP 111/73
[2020-12-10 19:22] VITALS: BP 127/68
[2020-12-10] MEDS: ATORVASTATIN 40 MG TABLET PO SCH (21:07)
[2020-12-11 03:55] VITALS: BP 127/84
[2020-12-11 05:29] LABS: BASOPHILS % (AUTO) 0 % (0-1); EOSINOPHILS % (AUTO) 4 % (1-7); LYMPHOCYTES % (AUTO) 14 % (22-44); MEAN CORPUSCULAR HEMOGLOBIN 29.4 pg (27.5-34.5); MEAN CORPUSCULAR HGB CONC 33.6 g/dL (33.2-36.2); MONOCYTES % (AUTO) 10 % (2-9); NEUTROPHILS % (AUTO) 72 % (42-75); PLATELET COUNT 300 x10^3/uL (130-400); RED BLOOD COUNT 3.49 x10^6/uL (4.38-5.82); RED CELL DISTRIBUTION WIDTH 14.2 % (9.4-14.8)
[2020-12-11 05:37] LABS: ANION GAP 5 mmol/L (5-15); CALCIUM 8.7 mg/dL (8.5-10.1); CHLORIDE 101 mmol/L (98-107); CREATININE 2.08 mg/dL (0.7-1.3)
[2020-12-11 05:56] LABS: MD SCAN
[2020-12-11] MEDS: ACETAMINOPHEN 325 MG TABLET PO PRN ×2 (06:01→10:31)
[2020-12-11] MEDS: OXYcodone IR 5MG TABLET PO PRN ×3 (06:02→20:40)
[2020-12-11 06:50] VITALS: BP 134/80
[2020-12-11] MEDS: ESCITALOPRAM 10MG TABLET PO SCH (10:30)
[2020-12-11] MEDS: GUAIFENESIN/DM 100-10MG, 5ML UDC PO PRN (10:30)
[2020-12-11] MEDS: SODIUM BICARBONATE 650 MG TABLET PO SCH ×2 (10:30→20:39)
[2020-12-11] MEDS: APIXABAN 5 MG TABLET PO SCH ×2 (10:31→20:39)
[2020-12-11] MEDS: CARVEDILOL 6.25 MG TABLET PO SCH ×2 (10:31→20:39)
[2020-12-11] MEDS: LEVOTHYROXINE 75 MCG TABLET PO SCH (10:31)
[2020-12-11] MEDS: BENZONATATE 100 MG CAPSULE PO SCH ×3 (10:31→20:39)
[2020-12-11] MEDS: GABAPENTIN 300 MG CAPSULE PO SCH ×2 (10:32→20:39)
[2020-12-11 13:20] VITALS: BP 118/76
[2020-12-11] MEDS: OXYcodone/APAP 10/325MG TABLET PO PRN (16:32)
[2020-12-11 19:02] LABS: MICROSCOPIC AUTO
[2020-12-11 20:00] VITALS: BP 124/69
[2020-12-11] MEDS: ATORVASTATIN 40 MG TABLET PO SCH (20:40)
[2020-12-12 01:09] VITALS: BP 126/84
[2020-12-12 05:28] LABS: MEAN CORPUSCULAR HEMOGLOBIN 29.4 pg (27.5-34.5); MEAN CORPUSCULAR HGB CONC 33.4 g/dL (33.2-36.2); MEAN PLATELET VOLUME 6.1 fL (7.4-10.4); PLATELET COUNT 318 x10^3/uL (130-400); RED BLOOD COUNT 3.53 x10^6/uL (4.38-5.82); RED CELL DISTRIBUTION WIDTH 14.3 % (9.4-14.8)
[2020-12-12 05:34] LABS: ANION GAP 6 mmol/L (5-15); CALCIUM 8.6 mg/dL (8.5-10.1); CHLORIDE 102 mmol/L (98-107); CREATININE 2.22 mg/dL (0.7-1.3)
[2020-12-12 06:24] LABS: MD YES
[2020-12-12 06:26] LABS: <PLATELET ESTIMATE> ADEQUATE; <PLT MORPHOLOGY> NORMAL PLT MORPH; EOS#(MANUAL) 0.27 x10^3/uL (0.0-0.4); EOS% (MANUAL) 2 % (1-7); LYMPH#(MANUAL) 1.77 x10^3/uL (1-3.4); LYMPHS% (MANUAL) 13 % (22-44); METAMYELOCYTES# (MANUAL) 0.27 x10^3/uL (0-0); METAMYELOCYTES% (MANUAL) 2 % (0-1); MONOS#(MANUAL) 0.41 x10^3/uL (0.3-2.7); MONOS% (MANUAL) 3 % (2-9); MYELOCYTES# (MANUAL) 0.14 x10^3/uL (0-0); MYELOCYTES% (MANUAL) 1 % (0-0); POLYCHROMASIA 1+; SEG#(MANUAL) 10.74 x10^3/uL (1.8-6.8); SEGS% (MANUAL) 79 % (42-75)
[2020-12-12 07:22] VITALS: BP 116/80
[2020-12-12] MEDS: ESCITALOPRAM 10MG TABLET PO SCH (07:54)
[2020-12-12] MEDS: BENZONATATE 100 MG CAPSULE PO SCH ×3 (07:54→22:28)
[2020-12-12] MEDS: SODIUM BICARBONATE 650 MG TABLET PO SCH ×2 (07:54→22:28)
[2020-12-12] MEDS: APIXABAN 5 MG TABLET PO SCH ×2 (07:55→22:29)
[2020-12-12] MEDS: GABAPENTIN 300 MG CAPSULE PO SCH ×2 (07:55→22:29)
[2020-12-12] MEDS: OXYcodone/APAP 10/325MG TABLET PO PRN (07:55)
[2020-12-12] MEDS: LEVOTHYROXINE 75 MCG TABLET PO SCH (07:56)
[2020-12-12] MEDS: CARVEDILOL 6.25 MG TABLET PO SCH ×2 (07:56→22:28)
[2020-12-12] MEDS: CEFTRIAXONE PMX 1GM/50ML 50 ML IV SCH (09:43)
[2020-12-12] MEDS: GUAIFENESIN/DM 100-10MG, 5ML UDC PO PRN (11:08)
[2020-12-12] MEDS: HYDROcodone/APAP 10/325 MG TABLET PO SCH ×2 (12:30→18:30)
[2020-12-12 14:15] VITALS: BP 113/69
[2020-12-12] MEDS ORDERED: SILVER NITRATE STICK TP ONE (15:00)
[2020-12-12] MEDS: ACETAMINOPHEN 325 MG TABLET PO PRN (16:11)
[2020-12-12 19:24] VITALS: BP 141/84
[2020-12-12] MEDS: ATORVASTATIN 40 MG TABLET PO SCH (22:29)
[2020-12-13] MEDS: HYDROcodone/APAP 10/325 MG TABLET PO SCH ×4 (00:30→21:49)
[2020-12-13 02:18] VITALS: BP 135/71
[2020-12-13 05:23] LABS: MEAN CORPUSCULAR HEMOGLOBIN 29.3 pg (27.5-34.5); MEAN CORPUSCULAR HGB CONC 33.4 g/dL (33.2-36.2); MEAN PLATELET VOLUME 6.1 fL (7.4-10.4); PLATELET COUNT 316 x10^3/uL (130-400); RED BLOOD COUNT 3.62 x10^6/uL (4.38-5.82); RED CELL DISTRIBUTION WIDTH 14.3 % (9.4-14.8)
[2020-12-13 05:32] LABS: CHLORIDE 106 mmol/L (98-107)
[2020-12-13 05:43] LABS: ALANINE AMINOTRANSFERASE 36 U/L (12-78); ALBUMIN 2.5 g/dL (3.4-5.0); ALKALINE PHOSPHATASE 114 U/L (45-117); ANION GAP 7 mmol/L (5-15); BILIRUBIN,TOTAL 0.4 mg/dL (0.2-1.0); CALCIUM 8.8 mg/dL (8.5-10.1); TOTAL PROTEIN 7.6 g/dL (6.4-8.2)
[2020-12-13 06:09] LABS: MD YES
[2020-12-13 06:11] LABS: <PLATELET ESTIMATE> ADEQUATE; <PLT MORPHOLOGY> NORMAL PLT MORPH; BAND#(MANUAL) 0.32 x10^3/uL; BANDS%(MANUAL) 2 % (0-7); EOS#(MANUAL) 0.32 x10^3/uL (0.0-0.4); EOS% (MANUAL) 2 % (1-7); LYMPH#(MANUAL) 1.61 x10^3/uL (1-3.4); LYMPHS% (MANUAL) 10 % (22-44); METAMYELOCYTES# (MANUAL) 0.32 x10^3/uL (0-0); METAMYELOCYTES% (MANUAL) 2 % (0-1); MONOS#(MANUAL) 1.77 x10^3/uL (0.3-2.7); MONOS% (MANUAL) 11 % (2-9); POLYCHROMASIA 1+; SEG#(MANUAL) 11.75 x10^3/uL (1.8-6.8); SEGS% (MANUAL) 73 % (42-75)
[2020-12-13 07:55] VITALS: BP 138/70
[2020-12-13] MEDS: CEFTRIAXONE PMX 1GM/50ML 50 ML IV SCH (08:55)
[2020-12-13] MEDS: ONDANSETRON 2MG/ML, 2ML IVPush PRN (08:55)
[2020-12-13] MEDS: GUAIFENESIN/DM 100-10MG, 5ML UDC PO PRN (09:07)
[2020-12-13] MEDS: ESCITALOPRAM 10MG TABLET PO SCH (10:29)
[2020-12-13] MEDS: CARVEDILOL 6.25 MG TABLET PO SCH ×2 (10:29→21:49)
[2020-12-13] MEDS: APIXABAN 5 MG TABLET PO SCH ×2 (10:29→21:49)
[2020-12-13] MEDS: LEVOTHYROXINE 75 MCG TABLET PO SCH (10:30)
[2020-12-13] MEDS: GABAPENTIN 300 MG CAPSULE PO SCH ×2 (10:30→21:50)
[2020-12-13] MEDS: SODIUM BICARBONATE 650 MG TABLET PO SCH ×2 (10:30→21:49)
[2020-12-13] MEDS: BENZONATATE 100 MG CAPSULE PO SCH ×3 (10:30→21:49)
[2020-12-13] MEDS: OXYcodone IR 5MG TABLET PO PRN (12:44)
[2020-12-13 13:44] VITALS: BP 116/77
[2020-12-13 20:05] VITALS: BP 138/83
[2020-12-13] MEDS: ATORVASTATIN 40 MG TABLET PO SCH (21:50)
[2020-12-14 01:35] VITALS: BP 112/73
[2020-12-14] MEDS: HYDROcodone/APAP 10/325 MG TABLET PO SCH ×4 (02:30→21:27)
[2020-12-14 06:01] LABS: BASOPHILS % (AUTO) 0 % (0-1); EOSINOPHILS % (AUTO) 2 % (1-7); LYMPHOCYTES % (AUTO) 17 % (22-44); MEAN CORPUSCULAR HEMOGLOBIN 29.1 pg (27.5-34.5); MEAN PLATELET VOLUME 6.2 fL (7.4-10.4); MONOCYTES % (AUTO) 9 % (2-9); NEUTROPHILS % (AUTO) 72 % (42-75); PLATELET COUNT 314 x10^3/uL (130-400); RED BLOOD COUNT 3.56 x10^6/uL (4.38-5.82); RED CELL DISTRIBUTION WIDTH 14.4 % (9.4-14.8)
[2020-12-14 06:09] LABS: MD NO
[2020-12-14 06:10] LABS: HCT (SEDRATE) 31.3 % (39.2-51.8)
[2020-12-14 06:16] LABS: CHLORIDE 105 mmol/L (98-107)
[2020-12-14 06:32] LABS: ALANINE AMINOTRANSFERASE 50 U/L (12-78); ALBUMIN 2.6 g/dL (3.4-5.0); ALKALINE PHOSPHATASE 127 U/L (45-117); ANION GAP 5 mmol/L (5-15); BILIRUBIN,TOTAL 0.3 mg/dL (0.2-1.0); CALCIUM 8.9 mg/dL (8.5-10.1); CREATININE 2.48 mg/dL (0.7-1.3); TOTAL PROTEIN 7.9 g/dL (6.4-8.2)
[2020-12-14] MEDS: GUAIFENESIN/DM 100-10MG, 5ML UDC PO PRN (07:16)
[2020-12-14] MEDS: ESCITALOPRAM 10MG TABLET PO SCH (07:34)
[2020-12-14] MEDS: SODIUM BICARBONATE 650 MG TABLET PO SCH ×2 (07:34→21:27)
[2020-12-14] MEDS: GABAPENTIN 300 MG CAPSULE PO SCH ×2 (07:34→21:27)
[2020-12-14] MEDS: APIXABAN 5 MG TABLET PO SCH ×2 (07:34→21:27)
[2020-12-14] MEDS: BENZONATATE 100 MG CAPSULE PO SCH ×3 (07:34→21:27)
[2020-12-14] MEDS: CARVEDILOL 6.25 MG TABLET PO SCH ×2 (07:35→21:27)
[2020-12-14] MEDS: LEVOTHYROXINE 75 MCG TABLET PO SCH (07:35)
[2020-12-14 07:48] VITALS: BP 116/72
[2020-12-14] MEDS: CEFTRIAXONE PMX 1GM/50ML 50 ML IV SCH (09:47)
[2020-12-14 13:42] VITALS: BP 120/75
[2020-12-14] MEDS: OXYcodone IR 5MG TABLET PO PRN ×2 (14:34→16:29)
[2020-12-14 19:46] VITALS: BP 106/65
[2020-12-14] MEDS: ATORVASTATIN 40 MG TABLET PO SCH (21:27)
[2020-12-15] MEDS: HYDROcodone/APAP 10/325 MG TABLET PO SCH ×4 (02:00→21:34)
[2020-12-15 02:33] VITALS: BP 112/65
[2020-12-15] MEDS: GUAIFENESIN/DM 100-10MG, 5ML UDC PO PRN (05:30)
[2020-12-15 06:05] LABS: BASOPHILS % (AUTO) 1 % (0-1); EOSINOPHILS % (AUTO) 2 % (1-7); LYMPHOCYTES % (AUTO) 13 % (22-44); MEAN PLATELET VOLUME 6.4 fL (7.4-10.4); MONOCYTES % (AUTO) 8 % (2-9); NEUTROPHILS % (AUTO) 78 % (42-75); PLATELET COUNT 303 x10^3/uL (130-400); RED BLOOD COUNT 3.51 x10^6/uL (4.38-5.82); RED CELL DISTRIBUTION WIDTH 14.4 % (9.4-14.8)
[2020-12-15 06:06] LABS: MD NO
[2020-12-15 06:22] LABS: CHLORIDE 105 mmol/L (98-107)
[2020-12-15 06:32] LABS: ALANINE AMINOTRANSFERASE 50 U/L (12-78); ALBUMIN 2.6 g/dL (3.4-5.0); ALKALINE PHOSPHATASE 125 U/L (45-117); ANION GAP 6 mmol/L (5-15); BILIRUBIN,TOTAL 0.3 mg/dL (0.2-1.0); CALCIUM 8.9 mg/dL (8.5-10.1); CREATININE 2.49 mg/dL (0.7-1.3); TOTAL PROTEIN 7.8 g/dL (6.4-8.2)
[2020-12-15 07:30] VITALS: BP 106/68
[2020-12-15] MEDS: CARVEDILOL 6.25 MG TABLET PO SCH ×2 (09:19→21:35)
[2020-12-15] MEDS: GABAPENTIN 300 MG CAPSULE PO SCH ×2 (09:20→21:35)
[2020-12-15] MEDS: APIXABAN 5 MG TABLET PO SCH ×2 (09:20→21:34)
[2020-12-15] MEDS: BENZONATATE 100 MG CAPSULE PO SCH ×3 (09:20→21:34)
[2020-12-15] MEDS: SODIUM BICARBONATE 650 MG TABLET PO SCH ×2 (09:20→21:34)
[2020-12-15] MEDS: ESCITALOPRAM 10MG TABLET PO SCH (09:20)
[2020-12-15] MEDS: CEFTRIAXONE PMX 1GM/50ML 50 ML IV SCH (09:21)
[2020-12-15] MEDS: LEVOTHYROXINE 75 MCG TABLET PO SCH (09:21)
[2020-12-15 13:36] VITALS: BP 105/67
[2020-12-15 19:06] VITALS: BP 131/74
[2020-12-15] MEDS: ATORVASTATIN 40 MG TABLET PO SCH (21:34)
[2020-12-16 00:32] VITALS: BP 132/74
[2020-12-16] MEDS: HYDROcodone/APAP 10/325 MG TABLET PO SCH ×4 (03:33→20:40)
[2020-12-16 05:05] LABS: BASOPHILS % (AUTO) 0 % (0-1); EOSINOPHILS % (AUTO) 2 % (1-7); LYMPHOCYTES % (AUTO) 15 % (22-44); MEAN CORPUSCULAR HEMOGLOBIN 29.4 pg (27.5-34.5); MEAN CORPUSCULAR HGB CONC 33.2 g/dL (33.2-36.2); MEAN PLATELET VOLUME 6.4 fL (7.4-10.4); MONOCYTES % (AUTO) 9 % (2-9); NEUTROPHILS % (AUTO) 74 % (42-75); PLATELET COUNT 302 x10^3/uL (130-400); RED BLOOD COUNT 3.65 x10^6/uL (4.38-5.82); RED CELL DISTRIBUTION WIDTH 14.1 % (9.4-14.8)
[2020-12-16 05:15] LABS: ALBUMIN 2.7 g/dL (3.4-5.0); ANION GAP 7 mmol/L (5-15); CALCIUM 9.1 mg/dL (8.5-10.1); CHLORIDE 107 mmol/L (98-107)
[2020-12-16 05:19] LABS: ALANINE AMINOTRANSFERASE 59 U/L (12-78); ALKALINE PHOSPHATASE 142 U/L (45-117); BILIRUBIN,TOTAL 0.3 mg/dL (0.2-1.0); CREATININE 2.29 mg/dL (0.7-1.3); TOTAL PROTEIN 8.1 g/dL (6.4-8.2)
[2020-12-16 05:22] LABS: MD NO
[2020-12-16] MEDS: GUAIFENESIN/DM 100-10MG, 5ML UDC PO PRN ×2 (05:31→20:41)
[2020-12-16] MEDS: OXYcodone IR 5MG TABLET PO PRN (06:45)
[2020-12-16 07:28] VITALS: BP 150/80
[2020-12-16] MEDS ORDERED: SODIUM ZIRCONIUM CYCLOSILICATE 10 GM PO ONE (08:30)
[2020-12-16] MEDS: CEFTRIAXONE PMX 1GM/50ML 50 ML IV SCH (08:47)
[2020-12-16] MEDS: GABAPENTIN 300 MG CAPSULE PO SCH ×2 (08:47→20:39)
[2020-12-16] MEDS: BENZONATATE 100 MG CAPSULE PO SCH ×3 (08:48→20:39)
[2020-12-16] MEDS: SODIUM BICARBONATE 650 MG TABLET PO SCH ×3 (08:48→20:39)
[2020-12-16] MEDS: CARVEDILOL 6.25 MG TABLET PO SCH ×2 (08:49→20:39)
[2020-12-16] MEDS: LEVOTHYROXINE 75 MCG TABLET PO SCH (08:49)
[2020-12-16] MEDS: ESCITALOPRAM 10MG TABLET PO SCH (08:49)
[2020-12-16] MEDS: APIXABAN 5 MG TABLET PO SCH ×2 (08:49→20:39)
[2020-12-16] MEDS ORDERED: ACETAMINOPHEN 325 MG TABLET PO PRN (09:30)
[2020-12-16 13:33] VITALS: BP 139/80
[2020-12-16 19:39] VITALS: BP 134/83
[2020-12-16] MEDS: ATORVASTATIN 40 MG TABLET PO SCH (20:40)
[2020-12-17] MEDS: HYDROcodone/APAP 10/325 MG TABLET PO SCH ×4 (03:05→20:56)
[2020-12-17 03:17] VITALS: BP 142/82
[2020-12-17 05:55] LABS: BASOPHILS % (AUTO) 0 % (0-1); EOSINOPHILS % (AUTO) 2 % (1-7); LYMPHOCYTES % (AUTO) 13 % (22-44); MEAN CORPUSCULAR HEMOGLOBIN 29.1 pg (27.5-34.5); MEAN PLATELET VOLUME 6.4 fL (7.4-10.4); MONOCYTES % (AUTO) 8 % (2-9); NEUTROPHILS % (AUTO) 76 % (42-75); PLATELET COUNT 323 x10^3/uL (130-400); RED BLOOD COUNT 3.87 x10^6/uL (4.38-5.82); RED CELL DISTRIBUTION WIDTH 14.3 % (9.4-14.8)
[2020-12-17 06:08] LABS: ALBUMIN 2.8 g/dL (3.4-5.0); ANION GAP 7 mmol/L (5-15); CALCIUM 9.3 mg/dL (8.5-10.1); CHLORIDE 107 mmol/L (98-107)
[2020-12-17 06:12] LABS: MD NO
[2020-12-17 06:13] LABS: ALANINE AMINOTRANSFERASE 78 U/L (12-78); ALKALINE PHOSPHATASE 158 U/L (45-117); BILIRUBIN,TOTAL 0.3 mg/dL (0.2-1.0); CREATININE 2.33 mg/dL (0.7-1.3); TOTAL PROTEIN 8.7 g/dL (6.4-8.2)
[2020-12-17 07:32] VITALS: BP 146/77
[2020-12-17] MEDS: APIXABAN 5 MG TABLET PO SCH ×2 (08:51→20:12)
[2020-12-17] MEDS: SODIUM BICARBONATE 650 MG TABLET PO SCH ×3 (08:51→20:12)
[2020-12-17] MEDS: GABAPENTIN 300 MG CAPSULE PO SCH ×2 (08:51→20:11)
[2020-12-17] MEDS: BENZONATATE 100 MG CAPSULE PO SCH ×3 (08:52→20:11)
[2020-12-17] MEDS: ESCITALOPRAM 10MG TABLET PO SCH (08:52)
[2020-12-17] MEDS: CARVEDILOL 6.25 MG TABLET PO SCH ×2 (08:52→20:12)
[2020-12-17] MEDS: LEVOTHYROXINE 75 MCG TABLET PO SCH (08:52)
[2020-12-17] MEDS: LACTOBACILLUS CHEW TABLET PO SCH ×3 (08:56→20:11)
[2020-12-17 13:44] VITALS: BP 101/71
[2020-12-17] MEDS: OXYcodone IR 5MG TABLET PO PRN (15:58)
[2020-12-17 19:25] VITALS: BP 111/78
[2020-12-17] MEDS: ATORVASTATIN 40 MG TABLET PO SCH (20:12)
[2020-12-18 01:50] VITALS: BP 133/52
[2020-12-18] MEDS: HYDROcodone/APAP 10/325 MG TABLET PO SCH ×4 (03:06→21:33)
[2020-12-18 05:14] LABS: BASOPHILS % (AUTO) 1 % (0-1); EOSINOPHILS % (AUTO) 2 % (1-7); LYMPHOCYTES % (AUTO) 14 % (22-44); MEAN CORPUSCULAR HEMOGLOBIN 29.1 pg (27.5-34.5); MEAN PLATELET VOLUME 6.4 fL (7.4-10.4); MONOCYTES % (AUTO) 8 % (2-9); NEUTROPHILS % (AUTO) 76 % (42-75); PLATELET COUNT 337 x10^3/uL (130-400); RED BLOOD COUNT 3.83 x10^6/uL (4.38-5.82); RED CELL DISTRIBUTION WIDTH 14.2 % (9.4-14.8)
[2020-12-18 05:15] LABS: MD NO
[2020-12-18 05:30] LABS: ALBUMIN 2.9 g/dL (3.4-5.0); ANION GAP 9 mmol/L (5-15); CALCIUM 9.2 mg/dL (8.5-10.1); CHLORIDE 107 mmol/L (98-107)
[2020-12-18 05:34] LABS: ALANINE AMINOTRANSFERASE 92 U/L (12-78); ALKALINE PHOSPHATASE 168 U/L (45-117); BILIRUBIN,TOTAL 0.4 mg/dL (0.2-1.0); CREATININE 2.43 mg/dL (0.7-1.3); TOTAL PROTEIN 8.7 g/dL (6.4-8.2)
[2020-12-18] MEDS: SODIUM BICARBONATE 650 MG TABLET PO SCH ×3 (08:03→20:42)
[2020-12-18] MEDS: LACTOBACILLUS CHEW TABLET PO SCH ×3 (08:03→20:42)
[2020-12-18] MEDS: APIXABAN 5 MG TABLET PO SCH ×2 (08:03→20:42)
[2020-12-18] MEDS: CARVEDILOL 6.25 MG TABLET PO SCH ×2 (08:03→20:41)
[2020-12-18] MEDS: LEVOTHYROXINE 75 MCG TABLET PO SCH (08:03)
[2020-12-18 08:04] VITALS: BP 110/78
[2020-12-18] MEDS: GABAPENTIN 300 MG CAPSULE PO SCH ×2 (08:04→20:39)
[2020-12-18] MEDS: ESCITALOPRAM 10MG TABLET PO SCH (08:04)
[2020-12-18] MEDS: BENZONATATE 100 MG CAPSULE PO SCH ×3 (08:04→20:41)
[2020-12-18 13:21] VITALS: BP 117/77
[2020-12-18 19:32] VITALS: BP 113/69
[2020-12-18] MEDS: ATORVASTATIN 40 MG TABLET PO SCH (20:42)
[2020-12-18 22:35] LABS: MICROSCOPIC INDICATED
[2020-12-19 02:53] VITALS: BP 148/81
[2020-12-19] MEDS: HYDROcodone/APAP 10/325 MG TABLET PO SCH ×4 (03:23→21:09)
[2020-12-19 07:40] VITALS: BP 122/73
[2020-12-19 07:48] LABS: BASOPHILS % (AUTO) 1 % (0-1); EOSINOPHILS % (AUTO) 2 % (1-7); LYMPHOCYTES % (AUTO) 17 % (22-44); MEAN CORPUSCULAR HEMOGLOBIN 29.6 pg (27.5-34.5); MEAN CORPUSCULAR HGB CONC 33.7 g/dL (33.2-36.2); MEAN PLATELET VOLUME 6.4 fL (7.4-10.4); MONOCYTES % (AUTO) 9 % (2-9); NEUTROPHILS % (AUTO) 71 % (42-75); PLATELET COUNT 364 x10^3/uL (130-400); RED BLOOD COUNT 3.64 x10^6/uL (4.38-5.82); RED CELL DISTRIBUTION WIDTH 13.9 % (9.4-14.8)
[2020-12-19] MEDS: SODIUM BICARBONATE 650 MG TABLET PO SCH ×3 (07:49→21:08)
[2020-12-19] MEDS: LEVOTHYROXINE 75 MCG TABLET PO SCH (07:49)
[2020-12-19] MEDS: BENZONATATE 100 MG CAPSULE PO SCH ×3 (07:49→21:09)
[2020-12-19] MEDS: APIXABAN 5 MG TABLET PO SCH ×2 (07:49→21:09)
[2020-12-19] MEDS: LACTOBACILLUS CHEW TABLET PO SCH ×3 (07:49→21:09)
[2020-12-19] MEDS: GABAPENTIN 300 MG CAPSULE PO SCH ×2 (07:49→21:08)
[2020-12-19] MEDS: CARVEDILOL 6.25 MG TABLET PO SCH ×2 (07:50→21:12)
[2020-12-19] MEDS: ESCITALOPRAM 10MG TABLET PO SCH (07:50)
[2020-12-19 07:56] LABS: MD NO
[2020-12-19 07:57] LABS: ALBUMIN 2.9 g/dL (3.4-5.0); ANION GAP 6 mmol/L (5-15); CALCIUM 9.2 mg/dL (8.5-10.1); CHLORIDE 107 mmol/L (98-107)
[2020-12-19 08:02] LABS: ALANINE AMINOTRANSFERASE 88 U/L (12-78); ALKALINE PHOSPHATASE 173 U/L (45-117); BILIRUBIN,TOTAL 0.4 mg/dL (0.2-1.0); CREATININE 2.47 mg/dL (0.7-1.3); TOTAL PROTEIN 8.5 g/dL (6.4-8.2)
[2020-12-19] MEDS: CEFTRIAXONE PMX 2GM/50ML 50 ML IVPB SCH (09:55)
[2020-12-19] MEDS ORDERED: FUROSEMIDE 40 MG/4 ML IV ONE (11:00)
[2020-12-19] MEDS: ALBUMIN HUMAN 25% 100 ML IV SCH ×2 (11:50→18:43)
[2020-12-19 12:36] VITALS: BP 112/68
[2020-12-19] MEDS: OXYcodone IR 5MG TABLET PO PRN (13:00)
[2020-12-19 19:48] VITALS: BP 106/71
[2020-12-19] MEDS: ATORVASTATIN 40 MG TABLET PO SCH (21:08)
[2020-12-20 02:24] VITALS: BP 108/68
[2020-12-20] MEDS: ALBUMIN HUMAN 25% 100 ML IV SCH ×3 (03:00→18:44)
[2020-12-20] MEDS: HYDROcodone/APAP 10/325 MG TABLET PO SCH ×4 (03:08→21:08)
[2020-12-20 07:37] LABS: BASOPHILS % (AUTO) 1 % (0-1); EOSINOPHILS % (AUTO) 2 % (1-7); LYMPHOCYTES % (AUTO) 17 % (22-44); MEAN CORPUSCULAR HEMOGLOBIN 28.9 pg (27.5-34.5); MEAN CORPUSCULAR HGB CONC 33.1 g/dL (33.2-36.2); MEAN PLATELET VOLUME 6.5 fL (7.4-10.4); MONOCYTES % (AUTO) 10 % (2-9); NEUTROPHILS % (AUTO) 70 % (42-75); PLATELET COUNT 336 x10^3/uL (130-400); RED BLOOD COUNT 3.45 x10^6/uL (4.38-5.82); RED CELL DISTRIBUTION WIDTH 14.3 % (9.4-14.8)
[2020-12-20 07:40] LABS: ALBUMIN 3.6 g/dL (3.4-5.0); ANION GAP 8 mmol/L (5-15); CALCIUM 9.1 mg/dL (8.5-10.1); CHLORIDE 106 mmol/L (98-107)
[2020-12-20 07:41] LABS: MD NO
[2020-12-20 07:43] LABS: ALANINE AMINOTRANSFERASE 77 U/L (12-78); ALKALINE PHOSPHATASE 142 U/L (45-117); BILIRUBIN,TOTAL 0.3 mg/dL (0.2-1.0); CREATININE 2.61 mg/dL (0.7-1.3); TOTAL PROTEIN 8.4 g/dL (6.4-8.2)
[2020-12-20] MEDS: CEFTRIAXONE PMX 2GM/50ML 50 ML IVPB SCH (08:36)
[2020-12-20] MEDS: LEVOTHYROXINE 75 MCG TABLET PO SCH (08:36)
[2020-12-20] MEDS: BENZONATATE 100 MG CAPSULE PO SCH ×3 (08:37→21:08)
[2020-12-20] MEDS: GABAPENTIN 300 MG CAPSULE PO SCH ×2 (08:37→21:08)
[2020-12-20] MEDS: LACTOBACILLUS CHEW TABLET PO SCH ×3 (08:37→21:07)
[2020-12-20] MEDS: APIXABAN 5 MG TABLET PO SCH ×2 (08:37→21:10)
[2020-12-20] MEDS: SODIUM BICARBONATE 650 MG TABLET PO SCH ×3 (08:37→21:11)
[2020-12-20] MEDS: ESCITALOPRAM 10MG TABLET PO SCH (08:38)
[2020-12-20] MEDS: CARVEDILOL 6.25 MG TABLET PO SCH ×2 (08:41→21:07)
[2020-12-20 08:57] VITALS: BP 115/71
[2020-12-20 16:00] VITALS: BP 117/68
[2020-12-20 19:53] VITALS: BP 106/65
[2020-12-20] MEDS: ATORVASTATIN 40 MG TABLET PO SCH (21:08)
[2020-12-20] MEDS ORDERED: NITROGLYCERIN 0.4 MG BOTTLE (25 TABS) SL ONE (21:44)
[2020-12-20] MEDS: morphine SULFATE 10 MG/ML, 1ML IV PRN (22:02)
[2020-12-20 22:12] LABS: TROPONIN I < 0.015 ng/mL (0.000-0.045)
[2020-12-20 23:00] VITALS: BP 121/85
[2020-12-21] MEDS: morphine SULFATE 10 MG/ML, 1ML IV PRN ×2 (00:21→08:50)
[2020-12-21 02:13] VITALS: BP 117/71
[2020-12-21] MEDS: HYDROcodone/APAP 10/325 MG TABLET PO SCH ×4 (03:09→20:50)
[2020-12-21] MEDS: ALBUMIN HUMAN 25% 100 ML IV SCH ×3 (03:09→16:43)
[2020-12-21] MEDS: GUAIFENESIN/DM 100-10MG, 5ML UDC PO PRN (04:27)
[2020-12-21 05:55] LABS: MEAN CORPUSCULAR HGB CONC 32.9 g/dL (33.2-36.2); MEAN PLATELET VOLUME 6.5 fL (7.4-10.4); PLATELET COUNT 338 x10^3/uL (130-400); RED BLOOD COUNT 3.67 x10^6/uL (4.38-5.82); RED CELL DISTRIBUTION WIDTH 14.2 % (9.4-14.8)
[2020-12-21 06:03] LABS: ALBUMIN 4.2 g/dL (3.4-5.0); ANION GAP 5 mmol/L (5-15); CALCIUM 9.1 mg/dL (8.5-10.1); CHLORIDE 106 mmol/L (98-107)
[2020-12-21 06:11] LABS: ALANINE AMINOTRANSFERASE 66 U/L (12-78); ALKALINE PHOSPHATASE 146 U/L (45-117); BILIRUBIN,TOTAL 0.4 mg/dL (0.2-1.0); CREATININE 2.69 mg/dL (0.7-1.3); TOTAL PROTEIN 9.1 g/dL (6.4-8.2); TROPONIN I < 0.015 ng/mL (0.000-0.045)
[2020-12-21 07:00] VITALS: BP 118/79
[2020-12-21 07:01] LABS: MD YES
[2020-12-21 07:02] LABS: BAND#(MANUAL) 0.45 x10^3/uL; BANDS%(MANUAL) 3 % (0-7); LYMPH#(MANUAL) 1.35 x10^3/uL (1-3.4); LYMPHS% (MANUAL) 9 % (22-44); MONOS% (MANUAL) 8 % (2-9); SEGS% (MANUAL) 80 % (42-75)
[2020-12-21 07:04] LABS: <PLATELET ESTIMATE> ADEQUATE; <PLT MORPHOLOGY> NORMAL PLT MORPH; <RBC MORPHOLOGY> NORMAL
[2020-12-21] MEDS: CEFTRIAXONE PMX 2GM/50ML 50 ML IVPB SCH (08:16)
[2020-12-21] MEDS: APIXABAN 5 MG TABLET PO SCH (08:16)
[2020-12-21] MEDS: CARVEDILOL 6.25 MG TABLET PO SCH (08:17)
[2020-12-21] MEDS: ESCITALOPRAM 10MG TABLET PO SCH (08:17)
[2020-12-21] MEDS: BENZONATATE 100 MG CAPSULE PO SCH ×2 (08:17→16:00)
[2020-12-21] MEDS: SODIUM BICARBONATE 650 MG TABLET PO SCH ×2 (08:17→16:42)
[2020-12-21] MEDS: GABAPENTIN 300 MG CAPSULE PO SCH (08:18)
[2020-12-21] MEDS: LACTOBACILLUS CHEW TABLET PO SCH ×2 (08:18→16:42)
[2020-12-21] MEDS: LEVOTHYROXINE 75 MCG TABLET PO SCH (08:32)
[2020-12-21] MEDS: OXYcodone IR 5MG TABLET PO PRN (08:33)
[2020-12-21] MEDS: CYCLOBENZAPRINE 10 MG TABLET PO PRN (11:27)
[2020-12-21] MEDS: SODIUM CHLORIDE 0.45% 1,000 ML IV SCH (12:00)
[2020-12-21 13:44] VITALS: BP 101/67
[2020-12-21 22:26] VITALS: BP 108/72
[2020-12-22] MEDS: SODIUM BICARBONATE 650 MG TABLET PO SCH ×4 (00:18→23:40)
[2020-12-22] MEDS: GABAPENTIN 300 MG CAPSULE PO SCH ×3 (00:19→23:37)
[2020-12-22] MEDS: APIXABAN 5 MG TABLET PO SCH ×3 (00:19→23:38)
[2020-12-22] MEDS: LACTOBACILLUS CHEW TABLET PO SCH ×4 (00:19→23:37)
[2020-12-22] MEDS: ATORVASTATIN 40 MG TABLET PO SCH ×2 (00:19→23:37)
[2020-12-22] MEDS: CARVEDILOL 6.25 MG TABLET PO SCH ×3 (00:20→23:39)
[2020-12-22] MEDS: CYCLOBENZAPRINE 10 MG TABLET PO PRN ×2 (00:27→23:41)
[2020-12-22] MEDS: BENZONATATE 100 MG CAPSULE PO SCH ×4 (00:27→23:37)
[2020-12-22 01:12] VITALS: BP 107/67
[2020-12-22] MEDS: HYDROcodone/APAP 10/325 MG TABLET PO SCH ×4 (03:30→23:41)
[2020-12-22] MEDS: ALBUMIN HUMAN 25% 100 ML IV SCH (04:30)
[2020-12-22] MEDS: SODIUM CHLORIDE 0.45% 1,000 ML IV SCH (04:36)
[2020-12-22 06:08] LABS: BASOPHILS % (AUTO) 0 % (0-1); EOSINOPHILS % (AUTO) 1 % (1-7); LYMPHOCYTES % (AUTO) 13 % (22-44); MEAN CORPUSCULAR HGB CONC 33.1 g/dL (33.2-36.2); MEAN PLATELET VOLUME 6.9 fL (7.4-10.4); MONOCYTES % (AUTO) 9 % (2-9); NEUTROPHILS % (AUTO) 78 % (42-75); PLATELET COUNT 326 x10^3/uL (130-400); RED BLOOD COUNT 3.44 x10^6/uL (4.38-5.82); RED CELL DISTRIBUTION WIDTH 14.5 % (9.4-14.8)
[2020-12-22 06:20] LABS: CALCIUM 9.5 mg/dL (8.5-10.1); CHLORIDE 105 mmol/L (98-107)
[2020-12-22 06:22] LABS: MD NO
[2020-12-22 06:26] LABS: ALANINE AMINOTRANSFERASE 50 U/L (12-78); ALKALINE PHOSPHATASE 125 U/L (45-117); ANION GAP 8 mmol/L (5-15); BILIRUBIN,TOTAL 0.5 mg/dL (0.2-1.0); CREATININE 3.36 mg/dL (0.7-1.3); TOTAL PROTEIN 8.6 g/dL (6.4-8.2)
[2020-12-22 06:28] VITALS: BP 114/69
[2020-12-22] MEDS ORDERED: SODIUM CHLORIDE 0.45% 1,000 ML IV SCH (09:00)
[2020-12-22] MEDS ORDERED: SODIUM BICARB 8.4%,50ML SYR. 75 MEQ in SODIUM CHLORIDE 0.45% 1,000 ML IV SCH ×2 (11:00→13:30)
[2020-12-22] MEDS: ESCITALOPRAM 10MG TABLET PO SCH (11:23)
[2020-12-22] MEDS: CEFTRIAXONE PMX 2GM/50ML 50 ML IVPB SCH (11:26)
[2020-12-22] MEDS: LEVOTHYROXINE 75 MCG TABLET PO SCH (11:26)
[2020-12-22 12:25] VITALS: BP 115/53
[2020-12-22] MEDS: SODIUM BICARB 8.4%,50ML SYR. 75 MEQ in SODIUM CHLORIDE 0.45% 1,000 ML IV SCH (14:19)
[2020-12-22 18:42] VITALS: BP 126/69
[2020-12-22] MEDS: OXYcodone IR 5MG TABLET PO PRN (23:42)
[2020-12-23] MEDS: SODIUM BICARB 8.4%,50ML SYR. 75 MEQ in SODIUM CHLORIDE 0.45% 1,000 ML IV SCH ×3 (01:03→17:24)
[2020-12-23 01:33] VITALS: BP 111/72
[2020-12-23] MEDS: HYDROcodone/APAP 10/325 MG TABLET PO SCH ×4 (03:30→22:43)
[2020-12-23 06:21] LABS: BASOPHILS % (AUTO) 1 % (0-1); EOSINOPHILS % (AUTO) 3 % (1-7); LYMPHOCYTES % (AUTO) 14 % (22-44); MEAN CORPUSCULAR HEMOGLOBIN 29.9 pg (27.5-34.5); MEAN PLATELET VOLUME 6.8 fL (7.4-10.4); MONOCYTES % (AUTO) 10 % (2-9); NEUTROPHILS % (AUTO) 73 % (42-75); PLATELET COUNT 296 x10^3/uL (130-400); RED BLOOD COUNT 2.97 x10^6/uL (4.38-5.82); RED CELL DISTRIBUTION WIDTH 14.7 % (9.4-14.8)
[2020-12-23 06:25] LABS: ANION GAP 8 mmol/L (5-15); CALCIUM 8.6 mg/dL (8.5-10.1); CHLORIDE 99 mmol/L (98-107)
[2020-12-23 06:27] LABS: CREATININE 4.01 mg/dL (0.7-1.3)
[2020-12-23 06:38] LABS: MD NO
[2020-12-23 08:00] VITALS: BP 116/70
[2020-12-23] MEDS: APIXABAN 5 MG TABLET PO SCH ×2 (08:40→20:17)
[2020-12-23] MEDS: ESCITALOPRAM 10MG TABLET PO SCH (08:40)
[2020-12-23] MEDS: LACTOBACILLUS CHEW TABLET PO SCH ×3 (08:40→20:15)
[2020-12-23] MEDS: BENZONATATE 100 MG CAPSULE PO SCH ×3 (08:40→20:15)
[2020-12-23] MEDS: LEVOTHYROXINE 75 MCG TABLET PO SCH (08:40)
[2020-12-23] MEDS: CEFTRIAXONE PMX 2GM/50ML 50 ML IVPB SCH (08:40)
[2020-12-23] MEDS: GABAPENTIN 300 MG CAPSULE PO SCH (08:41)
[2020-12-23] MEDS: CARVEDILOL 6.25 MG TABLET PO SCH ×2 (08:41→20:17)
[2020-12-23] MEDS: SODIUM BICARBONATE 650 MG TABLET PO SCH (09:00)
[2020-12-23] MEDS: morphine SULFATE 10 MG/ML, 1ML IV PRN (09:00)
[2020-12-23] MEDS ORDERED: SODIUM BICARB 8.4%,50ML SYR. 75 MEQ in SODIUM CHLORIDE 0.45% 1,000 ML IV SCH (11:00)
[2020-12-23 12:00] VITALS: BP 123/76
[2020-12-23] MEDS ORDERED: SODIUM BICARBONATE 650 MG TABLET PO SCH (16:00)
[2020-12-23 16:43] LABS: MICROSCOPIC INDICATED
[2020-12-23 18:24] VITALS: BP_SYST 105; BP_SYST 124; BP_DIAS 69; BP_DIAS 72
[2020-12-23] MEDS: CYCLOBENZAPRINE 10 MG TABLET PO PRN (20:17)
[2020-12-23] MEDS: ATORVASTATIN 40 MG TABLET PO SCH (20:17)
[2020-12-23 20:18] VITALS: BP 111/61
[2020-12-24 01:33] VITALS: BP 123/71
[2020-12-24] MEDS: SODIUM BICARB 8.4%,50ML SYR. 75 MEQ in SODIUM CHLORIDE 0.45% 1,000 ML IV SCH ×4 (03:44→20:25)
[2020-12-24 06:21] LABS: ANION GAP 8 mmol/L (5-15); CALCIUM 8.4 mg/dL (8.5-10.1); CHLORIDE 98 mmol/L (98-107); CREATININE 3.32 mg/dL (0.7-1.3)
[2020-12-24] MEDS: HYDROcodone/APAP 10/325 MG TABLET PO SCH ×3 (06:37→18:36)
[2020-12-24 07:11] VITALS: BP 118/74
[2020-12-24] MEDS: CYCLOBENZAPRINE 10 MG TABLET PO PRN ×2 (08:43→20:24)
[2020-12-24] MEDS: CARVEDILOL 6.25 MG TABLET PO SCH ×2 (08:43→20:24)
[2020-12-24] MEDS: DIPHENOXYLATE/ATROPINE TABLET PO SCH (08:43)
[2020-12-24] MEDS: CEFTRIAXONE PMX 2GM/50ML 50 ML IVPB SCH (08:43)
[2020-12-24] MEDS: APIXABAN 5 MG TABLET PO SCH ×2 (08:44→20:24)
[2020-12-24] MEDS: BENZONATATE 100 MG CAPSULE PO SCH ×3 (08:44→20:24)
[2020-12-24] MEDS: LEVOTHYROXINE 75 MCG TABLET PO SCH (08:44)
[2020-12-24] MEDS: GABAPENTIN 300 MG CAPSULE PO SCH (08:44)
[2020-12-24] MEDS: ESCITALOPRAM 10MG TABLET PO SCH (08:44)
[2020-12-24] MEDS: LACTOBACILLUS CHEW TABLET PO SCH ×3 (08:44→20:24)
[2020-12-24 12:56] VITALS: BP 107/69
[2020-12-24 18:48] VITALS: BP 133/73
[2020-12-24] MEDS: ATORVASTATIN 40 MG TABLET PO SCH (20:25)
[2020-12-25] MEDS: HYDROcodone/APAP 10/325 MG TABLET PO SCH ×4 (00:10→21:18)
[2020-12-25 01:00] VITALS: BP 104/67
[2020-12-25] MEDS: SODIUM BICARB 8.4%,50ML SYR. 75 MEQ in SODIUM CHLORIDE 0.45% 1,000 ML IV SCH ×4 (02:01→23:00)
[2020-12-25 06:25] LABS: BASOPHILS % (AUTO) 0 % (0-1); EOSINOPHILS % (AUTO) 5 % (1-7); LYMPHOCYTES % (AUTO) 12 % (22-44); MEAN CORPUSCULAR HEMOGLOBIN 29.4 pg (27.5-34.5); MEAN PLATELET VOLUME 6.9 fL (7.4-10.4); MONOCYTES % (AUTO) 10 % (2-9); NEUTROPHILS % (AUTO) 73 % (42-75); PLATELET COUNT 323 x10^3/uL (130-400)
[2020-12-25 06:26] LABS: MD NO
[2020-12-25 06:31] LABS: ALBUMIN 3.1 g/dL (3.4-5.0); ANION GAP 8 mmol/L (5-15); CALCIUM 8.5 mg/dL (8.5-10.1); CHLORIDE 101 mmol/L (98-107)
[2020-12-25 06:37] LABS: ALANINE AMINOTRANSFERASE 58 U/L (12-78); ALKALINE PHOSPHATASE 139 U/L (45-117); BILIRUBIN,TOTAL 0.4 mg/dL (0.2-1.0); CREATININE 2.41 mg/dL (0.7-1.3); TOTAL PROTEIN 7.6 g/dL (6.4-8.2)
[2020-12-25] MEDS: CYCLOBENZAPRINE 10 MG TABLET PO PRN ×2 (07:43→21:16)
[2020-12-25] MEDS: GABAPENTIN 300 MG CAPSULE PO SCH (07:44)
[2020-12-25] MEDS: LACTOBACILLUS CHEW TABLET PO SCH ×4 (07:44→21:16)
[2020-12-25] MEDS: DIPHENOXYLATE/ATROPINE TABLET PO SCH ×2 (07:44→21:16)
[2020-12-25] MEDS: CARVEDILOL 6.25 MG TABLET PO SCH ×2 (07:45→21:17)
[2020-12-25] MEDS: BENZONATATE 100 MG CAPSULE PO SCH ×3 (07:45→21:15)
[2020-12-25] MEDS: ESCITALOPRAM 10MG TABLET PO SCH (07:45)
[2020-12-25] MEDS: APIXABAN 5 MG TABLET PO SCH ×2 (07:45→21:18)
[2020-12-25] MEDS: LEVOTHYROXINE 75 MCG TABLET PO SCH (07:45)
[2020-12-25 08:25] VITALS: BP 125/70
[2020-12-25] MEDS: CEFTRIAXONE PMX 2GM/50ML 50 ML IVPB SCH (08:46)
[2020-12-25 12:26] VITALS: BP 121/75
[2020-12-25 15:42] LABS: ANA SCREEN POSITIVE (Negative)
[2020-12-25 15:43] LABS: ANTI-NUCLEAR ANTIBODY PATTERN SPECKLED
[2020-12-25 19:41] VITALS: BP 114/67
[2020-12-25] MEDS: GUAIFENESIN/DM 100-10MG, 5ML UDC PO PRN (21:15)
[2020-12-25] MEDS: MELATONIN 5 MG TABLET PO PRN (21:17)
[2020-12-25] MEDS: ATORVASTATIN 40 MG TABLET PO SCH (21:18)
[2020-12-26 00:52] VITALS: BP 103/71
[2020-12-26] MEDS: GUAIFENESIN/DM 100-10MG, 5ML UDC PO PRN (05:32)
[2020-12-26] MEDS: HYDROcodone/APAP 10/325 MG TABLET PO SCH ×4 (05:33→22:11)
[2020-12-26] MEDS: LACTOBACILLUS CHEW TABLET PO SCH ×4 (05:33→20:35)
[2020-12-26 05:40] LABS: CHLORIDE 103 mmol/L (98-107)
[2020-12-26 05:48] LABS: ALANINE AMINOTRANSFERASE 49 U/L (12-78); ALBUMIN 2.9 g/dL (3.4-5.0); ALKALINE PHOSPHATASE 137 U/L (45-117); ANION GAP 5 mmol/L (5-15); BILIRUBIN,TOTAL 0.3 mg/dL (0.2-1.0); CALCIUM 8.5 mg/dL (8.5-10.1); CREATININE 1.94 mg/dL (0.7-1.3); TOTAL PROTEIN 7.3 g/dL (6.4-8.2)
[2020-12-26 07:05] VITALS: BP 115/68
[2020-12-26] MEDS: ESCITALOPRAM 10MG TABLET PO SCH (09:12)
[2020-12-26] MEDS: DIPHENOXYLATE/ATROPINE TABLET PO SCH ×2 (09:12→20:35)
[2020-12-26] MEDS: CARVEDILOL 6.25 MG TABLET PO SCH ×2 (09:12→20:36)
[2020-12-26] MEDS: BENZONATATE 100 MG CAPSULE PO SCH ×3 (09:12→20:35)
[2020-12-26] MEDS: SODIUM BICARB 8.4%,50ML SYR. 75 MEQ in SODIUM CHLORIDE 0.45% 1,000 ML IV SCH (09:12)
[2020-12-26] MEDS: APIXABAN 5 MG TABLET PO SCH ×2 (09:13→20:35)
[2020-12-26] MEDS: GABAPENTIN 300 MG CAPSULE PO SCH (09:13)
[2020-12-26] MEDS: LEVOTHYROXINE 75 MCG TABLET PO SCH (09:13)
[2020-12-26] MEDS: CEFTRIAXONE PMX 2GM/50ML 50 ML IVPB SCH (09:16)
[2020-12-26] MEDS: morphine SULFATE 10 MG/ML, 1ML IV PRN (11:13)
[2020-12-26] MEDS: CYCLOBENZAPRINE 10 MG TABLET PO PRN ×2 (11:13→22:11)
[2020-12-26] MEDS: SODIUM CHLORIDE 0.9% 1,000 ML IV SCH ×2 (11:14→17:10)
[2020-12-26 12:16] VITALS: BP 108/75
[2020-12-26] MEDS: ATORVASTATIN 40 MG TABLET PO SCH (20:35)
[2020-12-26 20:41] VITALS: BP 115/79
[2020-12-27] MEDS: SODIUM CHLORIDE 0.9% 1,000 ML IV SCH ×3 (00:46→13:10)
[2020-12-27] MEDS: MELATONIN 5 MG TABLET PO PRN (00:47)
[2020-12-27 01:35] VITALS: BP 100/67
[2020-12-27] MEDS: ONDANSETRON 2MG/ML, 2ML IVPush PRN (05:00)
[2020-12-27 05:24] LABS: BASOPHILS % (AUTO) 1 % (0-1); EOSINOPHILS % (AUTO) 5 % (1-7); LYMPHOCYTES % (AUTO) 15 % (22-44); MEAN CORPUSCULAR HEMOGLOBIN 30.2 pg (27.5-34.5); MEAN CORPUSCULAR HGB CONC 34.3 g/dL (33.2-36.2); MEAN PLATELET VOLUME 6.9 fL (7.4-10.4); MONOCYTES % (AUTO) 10 % (2-9); NEUTROPHILS % (AUTO) 69 % (42-75); PLATELET COUNT 306 x10^3/uL (130-400); RED BLOOD COUNT 2.99 x10^6/uL (4.38-5.82); RED CELL DISTRIBUTION WIDTH 14.1 % (9.4-14.8)
[2020-12-27 05:27] LABS: MD NO
[2020-12-27 05:28] LABS: ALBUMIN 2.9 g/dL (3.4-5.0); ANION GAP 4 mmol/L (5-15); CALCIUM 8.5 mg/dL (8.5-10.1); CHLORIDE 104 mmol/L (98-107)
[2020-12-27 05:29] LABS: CREATININE 1.82 mg/dL (0.7-1.3)
[2020-12-27] MEDS: LACTOBACILLUS CHEW TABLET PO SCH ×3 (06:16→15:49)
[2020-12-27] MEDS: HYDROcodone/APAP 10/325 MG TABLET PO SCH ×3 (06:16→15:49)
[2020-12-27 07:43] VITALS: BP 102/66
[2020-12-27] MEDS: DIPHENOXYLATE/ATROPINE TABLET PO SCH (09:29)
[2020-12-27] MEDS: APIXABAN 5 MG TABLET PO SCH (09:30)
[2020-12-27] MEDS: GABAPENTIN 300 MG CAPSULE PO SCH (09:30)
[2020-12-27] MEDS: LEVOTHYROXINE 75 MCG TABLET PO SCH (09:30)
[2020-12-27] MEDS: ESCITALOPRAM 10MG TABLET PO SCH (09:30)
[2020-12-27] MEDS: BENZONATATE 100 MG CAPSULE PO SCH ×2 (09:30→15:49)
[2020-12-27] MEDS: CARVEDILOL 6.25 MG TABLET PO SCH (09:30)
[2020-12-27 13:55] VITALS: BP 115/73
[2020-12-27] MEDS ORDERED: MELA5TAB14 PO (14:06)
[2020-12-27] MEDS ORDERED: HYDR-3248 PO (14:06)
[2020-12-27] MEDS ORDERED: CARV6.2512 PO (14:06)
[2020-12-27] MEDS ORDERED: CYCL-259 PO (14:06)
[2020-12-27] MEDS ORDERED: GABA300C PO (14:06)
[2020-12-27] MEDS ORDERED: ESCI10TA5 PO (14:06)
[2020-12-27] MEDS ORDERED: OXYC5TAB98 PO (14:06)
[2020-12-27] MEDS: OXYcodone IR 5MG TABLET PO PRN ×2 (15:49→17:20)
== END 2020-12-27 17:44 | DRG 388 ==
LOC: ED 18:35 → EDIP 11-14 00:29 → 5SO 11-14 12:09 → 4NE 12-02 16:55 → 5SO 12-20 22:56 → 4NE 12-21 20:03
PROVIDERS: ADMIT Family Medicine; ATTEND Family Medicine
PROC: 0D9670Z Drainage of Stomach with Drainage Device, Via Natural or Artificial Opening (ICD-10-PCS; principal; 2020-11-14)
DX: K56.601 Complete intestinal obstruction, unspecified as to cause (principal); E43 Unspecified severe protein-calorie malnutrition; J96.01 Acute respiratory failure with hypoxia; N17.0 Acute kidney failure with tubular necrosis; K94.13 Enterostomy malfunction; Z68.43 Body mass index [BMI] 50.0-59.9, adult; E87.1 Hypo-osmolality and hyponatremia; E87.2 Acidosis; I13.0 Hypertensive heart and chronic kidney disease with heart failure and stage 1 through stage 4 chronic kidney disease, or unspecified chronic kidney disease; I48.92 Unspecified atrial flutter; N39.0 Urinary tract infection, site not specified; N18.4 Chronic kidney disease, stage 4 (severe); Z66 Do not resuscitate; B37.9 Candidiasis, unspecified; D50.9 Iron deficiency anemia, unspecified; E03.9 Hypothyroidism, unspecified; E11.22 Type 2 diabetes mellitus with diabetic chronic kidney disease; E11.42 Type 2 diabetes mellitus with diabetic polyneuropathy; E66.01 Morbid (severe) obesity due to excess calories; E86.1 Hypovolemia; E87.5 Hyperkalemia; F32.9 Major depressive disorder, single episode, unspecified; F41.1 Generalized anxiety disorder; G89.29 Other chronic pain; M54.9 Dorsalgia, unspecified; E11.65 Type 2 diabetes mellitus with hyperglycemia; E78.5 Hyperlipidemia, unspecified; I50.9 Heart failure, unspecified; I48.0 Paroxysmal atrial fibrillation; J45.909 Unspecified asthma, uncomplicated; I25.2 Old myocardial infarction; Z76.5 Malingerer [conscious simulation]; Z79.01 Long term (current) use of anticoagulants; Z79.4 Long term (current) use of insulin; Z79.891 Long term (current) use of opiate analgesic; Z90.49 Acquired absence of other specified parts of digestive tract
CPT/HCPCS: 36415; 71045; 74018; 74176; 76770; 80048; 80053; 80069; 81001; 82040; 82330; 82728; 82962; 83036; 83516; 83540; 83550; 83605; 83690; 83735; 83880; 83930; 84100; 84443; 84484; 84550; 85025; 85651; 86038; 86039; 86140; 86160; 86162; 86225; 87077; 87086; 87186; 87324; 93005; 93306; 96360; 96361; 99291; G0378; J0696; J1644; J1756; J1815; J1940; J2405; J7070; P9047; J0610; J2060; J2270; J3475; J7030; J7040; J7120

== ENCOUNTER 2020-12-31 12:16 | Inpatient (IN) | payer MEDICAID ==
[~2020-12-31] VITALS: Ht 193 cm; Wt 191.6 kg
[~2020-12-31 12:16] MED LIST changes: +CARV6.2512 PO; +CYCL10TA2 PO; +ESCI10TA97 PO; +GABA300C PO; +HYDR-3248 PO; +MELA5TAB14 PO; +OXYC5TAB98 PO
[2020-12-31] MEDS ORDERED: SODIUM CHLORIDE 0.9% 1,000ML IVBOLUS ONE ×3 (13:30→17:30)
[2020-12-31] MEDS ORDERED: SODIUM CHLORIDE FLUSH 10ML SYR IVF ONE (13:30)
--- NOTE | 2020-12-31 13:49 | NUR ---
ELEAZAR RN: IV FLUID COMPLETED, NO URINARY OUTPUT, PT C.O OF ABD PAIN, LAB IN DRAWING
--- NOTE | 2020-12-31 13:57 | NUR ---
BREAK RN: DISCUSSED LOW PRESSURE AND NO OUTPT WITH DR. JESUS, ORDER RECEIVED
[2020-12-31 14:02] LABS: BASOPHILS % (AUTO) 0 % (0-1); EOSINOPHILS % (AUTO) 1 % (1-7); LYMPHOCYTES % (AUTO) 12 % (22-44); MEAN CORPUSCULAR HEMOGLOBIN 29.5 pg (27.5-34.5); MEAN CORPUSCULAR HGB CONC 32.9 g/dL (33.2-36.2); MEAN PLATELET VOLUME 7.7 fL (7.4-10.4); MONOCYTES % (AUTO) 8 % (2-9); NEUTROPHILS % (AUTO) 78 % (42-75); PLATELET COUNT 430 x10^3/uL (130-400); RED CELL DISTRIBUTION WIDTH 14.4 % (9.4-14.8)
[2020-12-31 14:08] LABS: MD NO
[2020-12-31 14:13] LABS: ALANINE AMINOTRANSFERASE 224 U/L (12-78); ALBUMIN 3.1 g/dL (3.4-5.0); ANION GAP 8 mmol/L (5-15); CALCIUM 8.7 mg/dL (8.5-10.1); CHLORIDE 99 mmol/L (98-107); CREATININE 7.66 mg/dL (0.7-1.3)
[2020-12-31 14:15] LABS: ALKALINE PHOSPHATASE 159 U/L (45-117); BILIRUBIN,TOTAL 0.4 mg/dL (0.2-1.0); TOTAL PROTEIN 8.1 g/dL (6.4-8.2)
--- NOTE | 2020-12-31 14:26 | NUR ---
Pt here for inability to urinate X 5 days. States feeling light-headed, hypotensive on arrival. PIV established and fluids started.
--- NOTE | 2020-12-31 14:34 | NUR ---
BP improving. Pt placed on low flow O2 via canula for low SpO2 while sleeping. VS updated.
--- NOTE | 2020-12-31 16:08 | NUR ---
Housekeeping called for hospital bed
--- NOTE | 2020-12-31 17:23 | NUR ---
Pt continues to be hypotensive. Tushar TOVAR made aware of pt condition, to see pt.
--- NOTE | 2020-12-31 17:32 | NUR ---
CASHIER WRAPPER at bedside, to consult with nephrology regarding fluid status. BP improved, 91/56
[2020-12-31] MEDS ORDERED: HEPARIN 5,000 UNITS/ML, 1ML SQ SCH (18:00)
[2020-12-31] MEDS ORDERED: ONDANSETRON ODT 4 MG PO PRN (18:00)
[2020-12-31 18:20] LABS: CHLORIDE 99 mmol/L (98-107)
[2020-12-31 18:27] VITALS: BP 112/74
[2020-12-31 18:39] LABS: ANION GAP 14 mmol/L (5-15); CALCIUM 8.8 mg/dL (8.5-10.1); CREATININE 7.88 mg/dL (0.7-1.3)
[2020-12-31 19:09] VITALS: BP 91/57
[2020-12-31] MEDS: SODIUM CHLORIDE 0.9% 1,000 ML IV SCH (20:42)
[2020-12-31] MEDS: INSULIN LISPRO 100 UNITS/ML, PEN SQ-INSULIN SCH (20:43)
[2020-12-31] MEDS ORDERED: MELATONIN 5 MG TABLET PO PRN (21:00)
[2020-12-31 22:48] LABS: BASOPHILS % (AUTO) 0 % (0-1); EOSINOPHILS % (AUTO) 1 % (1-7); LYMPHOCYTES % (AUTO) 13 % (22-44); MEAN CORPUSCULAR HEMOGLOBIN 29.1 pg (27.5-34.5); MEAN CORPUSCULAR HGB CONC 32.4 g/dL (33.2-36.2); MONOCYTES % (AUTO) 8 % (2-9); NEUTROPHILS % (AUTO) 79 % (42-75); PLATELET COUNT 465 x10^3/uL (130-400); RED BLOOD COUNT 3.22 x10^6/uL (4.38-5.82); RED CELL DISTRIBUTION WIDTH 14.8 % (9.4-14.8)
[2020-12-31 23:10] LABS: ANION GAP 12 mmol/L (5-15); CALCIUM 8.5 mg/dL (8.5-10.1); CHLORIDE 99 mmol/L (98-107); CREATININE 7.98 mg/dL (0.7-1.3)
[2020-12-31 23:26] LABS: MD SCAN
[2021-01-01 00:06] LABS: CLOSTRIDIUM DIFFICILE ANTIGEN NEGATIVE; CLOSTRIDIUM DIFFICILE TOXIN NEGATIVE (Negative)
[2021-01-01] MEDS: SODIUM CHLORIDE 0.9% 1,000 ML IV SCH ×2 (00:40→06:29)
[2021-01-01 00:46] VITALS: BP 94/51
[2021-01-01 05:04] LABS: CHLORIDE,URINE RANDOM 51 mmol/L; POTASSIUM,URINE RANDOM 11 mmol/L; SODIUM,URINE RANDOM 45 mmol/L
[2021-01-01] MEDS: LEVOTHYROXINE 75 MCG TABLET PO SCH (05:10)
[2021-01-01 05:44] LABS: BASOPHILS % (AUTO) 0 % (0-1); EOSINOPHILS % (AUTO) 0 % (1-7); LYMPHOCYTES % (AUTO) 8 % (22-44); MEAN CORPUSCULAR HEMOGLOBIN 29.3 pg (27.5-34.5); MEAN CORPUSCULAR HGB CONC 32.7 g/dL (33.2-36.2); MEAN PLATELET VOLUME 8.2 fL (7.4-10.4); MONOCYTES % (AUTO) 7 % (2-9); NEUTROPHILS % (AUTO) 85 % (42-75); PLATELET COUNT 489 x10^3/uL (130-400); RED BLOOD COUNT 3.06 x10^6/uL (4.38-5.82); RED CELL DISTRIBUTION WIDTH 14.8 % (9.4-14.8)
[2021-01-01 05:47] LABS: CALCIUM 8.8 mg/dL (8.5-10.1)
[2021-01-01 05:55] LABS: ANION GAP 14 mmol/L (5-15); CHLORIDE 99 mmol/L (98-107)
[2021-01-01 05:57] LABS: ALANINE AMINOTRANSFERASE 1090 U/L (12-78); ALBUMIN 3.3 g/dL (3.4-5.0); ALKALINE PHOSPHATASE 232 U/L (45-117); BILIRUBIN,TOTAL 0.6 mg/dL (0.2-1.0); CREATININE 8.37 mg/dL (0.7-1.3); TOTAL PROTEIN 8.2 g/dL (6.4-8.2)
[2021-01-01 06:11] LABS: MD SCAN
[2021-01-01] MEDS ORDERED: INSULIN REGULAR 100 UNITS/ML, 3ML VIAL IVPush ONE (07:00)
[2021-01-01] MEDS ORDERED: CALCIUM GLUCONATE 4.6 MEQ/10 ML IVPush PRN (07:00)
[2021-01-01] MEDS: INSULIN LISPRO 100 UNITS/ML, PEN SQ-INSULIN SCH ×4 (07:00→21:00)
[2021-01-01] MEDS ORDERED: DEXTROSE 50%, 50ML SYRINGE IVPush ONE (07:00)
[2021-01-01] MEDS: SODIUM ZIRCONIUM CYCLOSILICATE 10 GM PO SCH ×3 (07:08→17:18)
[2021-01-01] MEDS: SODIUM BICARBONATE 8.4% 150 MEQ in DEXTROSE 5% 1,000 ML IV SCH ×2 (07:16→14:52)
[2021-01-01] MEDS: ESCITALOPRAM 10MG TABLET PO SCH (07:23)
[2021-01-01] MEDS: HYDROcodone/APAP 5/325 TABLET PO PRN ×2 (07:42→20:30)
[2021-01-01 08:02] VITALS: BP 117/64
[2021-01-01 12:20] VITALS: BP 112/59
[2021-01-01] MEDS: D5%-0.45% NACL 1,000 ML IV SCH (15:25)
[2021-01-01] MEDS ORDERED: DEXTROSE 4 GM TAB.CHEW PO PRN (15:30)
[2021-01-01] MEDS ORDERED: DEXTROSE 50%, 50ML SYRINGE IVPush PRN (15:30)
[2021-01-01] MEDS ORDERED: GLUCAGON 1 MG IM PRN (15:30)
[2021-01-01 19:11] VITALS: BP 71/56
[2021-01-01] MEDS: ONDANSETRON 2MG/ML, 2ML IVPush PRN (20:28)
[2021-01-01 20:31] VITALS: BP 154/127
[2021-01-01] MEDS: ALBUTEROL HFA 90 MCG/SPRAY INH PRN (20:53)
[2021-01-01] MEDS: SODIUM CHLORIDE FLUSH 10ML SYR IVF SCH (20:54)
[2021-01-01] MEDS ORDERED: SODIUM CHLORIDE 0.9% 250 ML IV ONE (21:30)
[2021-01-01] MEDS ORDERED: HALOPERIDOL 0.5 MG TABLET PO PRN (21:30)
[2021-01-01] MEDS ORDERED: HALOPERIDOL 5 MG TABLET ONE (21:32)
[2021-01-01] MEDS ORDERED: SODIUM CHLORIDE 0.9% 250 ML IV SCH (22:00)
[2021-01-01 22:51] VITALS: BP 106/75
[2021-01-02] MEDS ORDERED: HALOPERIDOL 5 MG/ML IM PRN (01:00)
[2021-01-02 02:04] VITALS: BP 82/58
[2021-01-02] MEDS: LEVOTHYROXINE 75 MCG TABLET PO SCH (06:05)
[2021-01-02] MEDS: D5%-0.45% NACL 1,000 ML IV SCH (06:06)
[2021-01-02 06:08] LABS: MEAN CORPUSCULAR HGB CONC 32.6 g/dL (33.2-36.2); MEAN PLATELET VOLUME 8.2 fL (7.4-10.4); PLATELET COUNT 379 x10^3/uL (130-400); RED BLOOD COUNT 3.28 x10^6/uL (4.38-5.82); RED CELL DISTRIBUTION WIDTH 14.7 % (9.4-14.8)
[2021-01-02 06:20] LABS: CHLORIDE 95 mmol/L (98-107)
[2021-01-02 06:47] VITALS: BP 99/62
[2021-01-02 06:47] LABS: ALANINE AMINOTRANSFERASE 1584 U/L (12-78); ALBUMIN 3.1 g/dL (3.4-5.0); ALKALINE PHOSPHATASE 242 U/L (45-117); ANION GAP 17 mmol/L (5-15); BILIRUBIN,TOTAL 0.7 mg/dL (0.2-1.0); CALCIUM 8.3 mg/dL (8.5-10.1); CREATININE 6.65 mg/dL (0.7-1.3); TOTAL PROTEIN 7.6 g/dL (6.4-8.2)
[2021-01-02 06:55] LABS: MD YES
[2021-01-02 06:57] LABS: BASOS#(MANUAL) 0.23 x10^3/uL (0-0.1); BASOS% (MANUAL) 1 % (0-1); LYMPH#(MANUAL) 1.39 x10^3/uL (1-3.4); LYMPHS% (MANUAL) 6 % (22-44); METAMYELOCYTES# (MANUAL) 0.23 x10^3/uL (0-0); METAMYELOCYTES% (MANUAL) 1 % (0-1); MONOS#(MANUAL) 3.02 x10^3/uL (0.3-2.7); MONOS% (MANUAL) 13 % (2-9); POLYCHROMASIA 1+; SEG#(MANUAL) 18.33 x10^3/uL (1.8-6.8); SEGS% (MANUAL) 79 % (42-75)
[2021-01-02 06:58] LABS: <PLATELET ESTIMATE> ADEQUATE; <PLT MORPHOLOGY> NORMAL PLT MORPH
[2021-01-02] MEDS: INSULIN LISPRO 100 UNITS/ML, PEN SQ-INSULIN SCH ×4 (08:18→21:40)
[2021-01-02] MEDS: SODIUM CHLORIDE FLUSH 10ML SYR IVF SCH ×2 (10:44→20:28)
[2021-01-02] MEDS: ESCITALOPRAM 10MG TABLET PO SCH (10:44)
[2021-01-02] MEDS: HYDROcodone/APAP 5/325 TABLET PO PRN ×2 (11:19→20:21)
[2021-01-02 13:45] VITALS: BP 95/52
[2021-01-02 18:49] VITALS: BP 102/75
[2021-01-02] MEDS ORDERED: ALBUMIN HUMAN 25% 100 ML IV PRN (22:30)
[2021-01-03 00:50] VITALS: BP 130/62
[2021-01-03] MEDS: D5%-0.45% NACL 1,000 ML IV SCH (00:55)
[2021-01-03 01:11] VITALS: BP 84/47
[2021-01-03 01:32] VITALS: BP 114/75
[2021-01-03] MEDS: HYDROcodone/APAP 5/325 TABLET PO PRN ×3 (03:24→20:26)
[2021-01-03] MEDS: LEVOTHYROXINE 75 MCG TABLET PO SCH (05:28)
[2021-01-03 06:38] LABS: MEAN CORPUSCULAR HEMOGLOBIN 29.3 pg (27.5-34.5); MEAN CORPUSCULAR HGB CONC 32.6 g/dL (33.2-36.2); MEAN PLATELET VOLUME 7.8 fL (7.4-10.4); PLATELET COUNT 314 x10^3/uL (130-400); RED BLOOD COUNT 3.14 x10^6/uL (4.38-5.82); RED CELL DISTRIBUTION WIDTH 14.7 % (9.4-14.8)
[2021-01-03 06:45] LABS: ANION GAP 11 mmol/L (5-15); CHLORIDE 96 mmol/L (98-107); CREATININE 6.09 mg/dL (0.7-1.3)
[2021-01-03 07:07] LABS: BAND#(MANUAL) 0.19 x10^3/uL; BANDS%(MANUAL) 1 % (0-7); EOS#(MANUAL) 0.19 x10^3/uL (0.0-0.4); EOS% (MANUAL) 1 % (1-7); MD YES
[2021-01-03 07:08] LABS: <PLATELET ESTIMATE> ADEQUATE; <PLT MORPHOLOGY> NORMAL PLT MORPH; LYMPH#(MANUAL) 1.92 x10^3/uL (1-3.4); LYMPHS% (MANUAL) 10 % (22-44); MONOS#(MANUAL) 1.73 x10^3/uL (0.3-2.7); MONOS% (MANUAL) 9 % (2-9); POLYCHROMASIA 1+; SEG#(MANUAL) 15.17 x10^3/uL (1.8-6.8); SEGS% (MANUAL) 79 % (42-75)
[2021-01-03 07:45] VITALS: BP 106/72
[2021-01-03] MEDS: ESCITALOPRAM 10MG TABLET PO SCH (09:54)
[2021-01-03] MEDS: INSULIN LISPRO 100 UNITS/ML, PEN SQ-INSULIN SCH ×4 (09:56→20:26)
[2021-01-03] MEDS: SODIUM CHLORIDE FLUSH 10ML SYR IVF SCH ×2 (09:56→20:26)
[2021-01-03 12:20] VITALS: BP 98/75
[2021-01-03 19:04] VITALS: BP 98/87
[2021-01-04 01:02] VITALS: BP 100/72
[2021-01-04] MEDS: LEVOTHYROXINE 75 MCG TABLET PO SCH (05:27)
[2021-01-04 06:16] LABS: BASOPHILS % (AUTO) 1 % (0-1); EOSINOPHILS % (AUTO) 2 % (1-7); LYMPHOCYTES % (AUTO) 10 % (22-44); MEAN CORPUSCULAR HGB CONC 32.5 g/dL (33.2-36.2); MEAN PLATELET VOLUME 7.9 fL (7.4-10.4); MONOCYTES % (AUTO) 7 % (2-9); NEUTROPHILS % (AUTO) 80 % (42-75); PLATELET COUNT 261 x10^3/uL (130-400); RED CELL DISTRIBUTION WIDTH 14.6 % (9.4-14.8)
[2021-01-04 06:28] LABS: ALBUMIN 3.5 g/dL (3.4-5.0); ANION GAP 14 mmol/L (5-15); CALCIUM 8.1 mg/dL (8.5-10.1); CHLORIDE 94 mmol/L (98-107)
[2021-01-04 06:32] LABS: ALANINE AMINOTRANSFERASE 780 U/L (12-78); ALKALINE PHOSPHATASE 198 U/L (45-117); BILIRUBIN,TOTAL 0.6 mg/dL (0.2-1.0); CREATININE 7.05 mg/dL (0.7-1.3); TOTAL PROTEIN 7.4 g/dL (6.4-8.2)
[2021-01-04 06:49] LABS: MD SCAN
[2021-01-04] MEDS: INSULIN LISPRO 100 UNITS/ML, PEN SQ-INSULIN SCH ×4 (07:00→21:34)
[2021-01-04 07:29] VITALS: BP 97/75
[2021-01-04] MEDS: HYDROcodone/APAP 5/325 TABLET PO PRN ×2 (08:10→16:44)
[2021-01-04] MEDS: ESCITALOPRAM 10MG TABLET PO SCH (08:10)
[2021-01-04] MEDS: SODIUM CHLORIDE FLUSH 10ML SYR IVF SCH ×2 (12:20→21:33)
[2021-01-04] MEDS: SODIUM CHLORIDE 0.9% 1,000 ML IV SCH (12:20)
[2021-01-04 13:15] VITALS: BP 92/61
[2021-01-04 21:44] VITALS: BP 106/44
[2021-01-05 00:43] VITALS: BP 110/72
[2021-01-05] MEDS: HYDROcodone/APAP 5/325 TABLET PO PRN ×3 (04:03→20:36)
[2021-01-05 05:25] LABS: BASOPHILS % (AUTO) 0 % (0-1); EOSINOPHILS % (AUTO) 2 % (1-7); LYMPHOCYTES % (AUTO) 8 % (22-44); MEAN CORPUSCULAR HEMOGLOBIN 29.3 pg (27.5-34.5); MEAN CORPUSCULAR HGB CONC 32.7 g/dL (33.2-36.2); MEAN PLATELET VOLUME 7.4 fL (7.4-10.4); MONOCYTES % (AUTO) 7 % (2-9); NEUTROPHILS % (AUTO) 83 % (42-75); PLATELET COUNT 235 x10^3/uL (130-400); RED BLOOD COUNT 2.98 x10^6/uL (4.38-5.82); RED CELL DISTRIBUTION WIDTH 14.8 % (9.4-14.8)
[2021-01-05 05:29] LABS: MD NO
[2021-01-05] MEDS: SODIUM CHLORIDE 0.9% 1,000 ML IV SCH ×3 (05:32→22:28)
[2021-01-05] MEDS: LEVOTHYROXINE 75 MCG TABLET PO SCH (05:33)
[2021-01-05 05:39] LABS: ALANINE AMINOTRANSFERASE 491 U/L (12-78); ALBUMIN 3.7 g/dL (3.4-5.0); ANION GAP 9 mmol/L (5-15); CALCIUM 8.2 mg/dL (8.5-10.1); CHLORIDE 97 mmol/L (98-107); CREATININE 5.99 mg/dL (0.7-1.3)
[2021-01-05 05:41] LABS: ALKALINE PHOSPHATASE 168 U/L (45-117); TOTAL PROTEIN 7.3 g/dL (6.4-8.2)
[2021-01-05 06:58] VITALS: BP 97/66
[2021-01-05] MEDS: INSULIN LISPRO 100 UNITS/ML, PEN SQ-INSULIN SCH ×4 (07:00→20:49)
[2021-01-05 07:29] LABS: CHLORIDE,URINE RANDOM 34 mmol/L; POTASSIUM,URINE RANDOM 23 mmol/L; SODIUM,URINE RANDOM 26 mmol/L
[2021-01-05] MEDS: SODIUM CHLORIDE FLUSH 10ML SYR IVF SCH ×2 (09:28→20:36)
[2021-01-05] MEDS: ESCITALOPRAM 10MG TABLET PO SCH (09:28)
[2021-01-05 13:50] VITALS: BP 120/77
[2021-01-05 20:56] VITALS: BP 111/68
[2021-01-06 03:16] VITALS: BP 97/64
[2021-01-06] MEDS: HYDROcodone/APAP 5/325 TABLET PO PRN ×3 (03:22→19:55)
[2021-01-06 05:22] LABS: ANION GAP 9 mmol/L (5-15); CALCIUM 7.7 mg/dL (8.5-10.1); CHLORIDE 99 mmol/L (98-107)
[2021-01-06 05:24] LABS: CREATININE 7.03 mg/dL (0.7-1.3)
[2021-01-06] MEDS: LEVOTHYROXINE 75 MCG TABLET PO SCH (06:05)
[2021-01-06] MEDS: INSULIN LISPRO 100 UNITS/ML, PEN SQ-INSULIN SCH ×4 (07:00→21:00)
[2021-01-06 07:02] VITALS: BP 106/65
[2021-01-06] MEDS: ESCITALOPRAM 10MG TABLET PO SCH (08:29)
[2021-01-06] MEDS: SODIUM CHLORIDE FLUSH 10ML SYR IVF SCH ×2 (08:34→19:57)
[2021-01-06 13:23] VITALS: BP 102/72
[2021-01-06 20:00] VITALS: BP 106/69
[2021-01-07 00:29] VITALS: BP 115/74
[2021-01-07] MEDS: LEVOTHYROXINE 75 MCG TABLET PO SCH (05:59)
[2021-01-07] MEDS: HYDROcodone/APAP 5/325 TABLET PO PRN ×3 (06:00→21:32)
[2021-01-07 06:04] VITALS: BP 110/72
[2021-01-07] MEDS ORDERED: MORPHINE SULFATE 4 MG/ML, 1ML ONE (06:29)
[2021-01-07] MEDS ORDERED: MORPHINE SULFATE 4 MG/ML, 1ML IVPush PRN (06:30)
[2021-01-07] MEDS: INSULIN LISPRO 100 UNITS/ML, PEN SQ-INSULIN SCH ×4 (07:00→21:00)
[2021-01-07 07:56] LABS: TROPONIN I 0.022 ng/mL (0.000-0.045)
[2021-01-07] MEDS: ESCITALOPRAM 10MG TABLET PO SCH (08:53)
[2021-01-07] MEDS: SODIUM CHLORIDE FLUSH 10ML SYR IVF SCH ×2 (08:58→21:32)
[2021-01-07 11:28] VITALS: BP 91/57
[2021-01-07 11:39] LABS: BASOPHILS % (AUTO) 0 % (0-1); EOSINOPHILS % (AUTO) 3 % (1-7); LYMPHOCYTES % (AUTO) 8 % (22-44); MEAN CORPUSCULAR HGB CONC 32.2 g/dL (33.2-36.2); MEAN PLATELET VOLUME 7.4 fL (7.4-10.4); MONOCYTES % (AUTO) 10 % (2-9); NEUTROPHILS % (AUTO) 79 % (42-75); PLATELET COUNT 217 x10^3/uL (130-400); RED BLOOD COUNT 3.31 x10^6/uL (4.38-5.82); RED CELL DISTRIBUTION WIDTH 15.1 % (9.4-14.8)
[2021-01-07 11:42] LABS: ALANINE AMINOTRANSFERASE 223 U/L (12-78); ANION GAP 9 mmol/L (5-15); CALCIUM 8.2 mg/dL (8.5-10.1); CHLORIDE 102 mmol/L (98-107)
[2021-01-07 11:52] LABS: ALKALINE PHOSPHATASE 138 U/L (45-117); BILIRUBIN,TOTAL 0.6 mg/dL (0.2-1.0)
[2021-01-07 12:25] LABS: MD SCAN
[2021-01-07] MEDS: SODIUM CHLORIDE 0.9% 1,000 ML IV SCH (17:44)
[2021-01-07 18:38] LABS: TROPONIN I < 0.015 ng/mL (0.000-0.045)
[2021-01-07 19:08] VITALS: BP 103/68
[2021-01-07] MEDS: GABAPENTIN 300 MG CAPSULE PO SCH (21:31)
[2021-01-08 00:12] LABS: TROPONIN I < 0.015 ng/mL (0.000-0.045)
[2021-01-08 02:10] VITALS: BP 96/50
[2021-01-08 05:09] LABS: ALBUMIN 2.9 g/dL (3.4-5.0); ANION GAP 9 mmol/L (5-15); CALCIUM 8.3 mg/dL (8.5-10.1); CHLORIDE 103 mmol/L (98-107)
[2021-01-08 05:11] LABS: CREATININE 7.52 mg/dL (0.7-1.3)
[2021-01-08] MEDS: HYDROcodone/APAP 5/325 TABLET PO PRN ×3 (05:11→18:07)
[2021-01-08] MEDS: LEVOTHYROXINE 75 MCG TABLET PO SCH (05:11)
[2021-01-08 07:04] VITALS: BP 122/74
[2021-01-08] MEDS: INSULIN LISPRO 100 UNITS/ML, PEN SQ-INSULIN SCH ×4 (08:02→20:11)
[2021-01-08] MEDS: SODIUM CHLORIDE FLUSH 10ML SYR IVF SCH ×2 (09:43→20:36)
[2021-01-08] MEDS: GABAPENTIN 300 MG CAPSULE PO SCH (09:44)
[2021-01-08] MEDS: ESCITALOPRAM 10MG TABLET PO SCH (09:44)
[2021-01-08] MEDS: SODIUM CHLORIDE 0.9% 1,000 ML IV SCH (11:41)
[2021-01-08 12:38] VITALS: BP 127/76
[2021-01-08 12:56] LABS: MICROSCOPIC INDICATED
[2021-01-08] MEDS ORDERED: CATHFLO-ALTEPLASE 2 MG/2 ML CATHFLUSH ONE ×2 (14:30)
[2021-01-08 19:31] VITALS: BP 107/63
[2021-01-08] MEDS: CEFTRIAXONE PMX 1GM/50ML 50 ML IV SCH (23:23)
[2021-01-09 00:03] VITALS: BP 121/67
[2021-01-09] MEDS: FLUCONAZOLE 100MG/50ML 100 MG in BAG 1 EACH IVPB SCH ×2 (00:03→23:07)
[2021-01-09] MEDS: HYDROcodone/APAP 5/325 TABLET PO PRN ×3 (00:27→12:40)
[2021-01-09 04:46] LABS: BASOPHILS % (AUTO) 1 % (0-1); EOSINOPHILS % (AUTO) 3 % (1-7); LYMPHOCYTES % (AUTO) 13 % (22-44); MEAN CORPUSCULAR HEMOGLOBIN 28.9 pg (27.5-34.5); MEAN CORPUSCULAR HGB CONC 32.2 g/dL (33.2-36.2); MONOCYTES % (AUTO) 12 % (2-9); NEUTROPHILS % (AUTO) 72 % (42-75); PLATELET COUNT 156 x10^3/uL (130-400); RED BLOOD COUNT 3.32 x10^6/uL (4.38-5.82); RED CELL DISTRIBUTION WIDTH 15.3 % (9.4-14.8)
[2021-01-09 04:57] LABS: ALBUMIN 2.6 g/dL (3.4-5.0); ANION GAP 9 mmol/L (5-15); CALCIUM 7.9 mg/dL (8.5-10.1); CHLORIDE 104 mmol/L (98-107)
[2021-01-09 05:13] LABS: MD SCAN
[2021-01-09] MEDS: LEVOTHYROXINE 75 MCG TABLET PO SCH (06:02)
[2021-01-09 06:53] VITALS: BP 98/63
[2021-01-09] MEDS: GABAPENTIN 300 MG CAPSULE PO SCH (09:10)
[2021-01-09] MEDS: INSULIN LISPRO 100 UNITS/ML, PEN SQ-INSULIN SCH ×4 (09:11→19:56)
[2021-01-09] MEDS: SODIUM CHLORIDE FLUSH 10ML SYR IVF SCH ×2 (09:11→19:56)
[2021-01-09] MEDS: ESCITALOPRAM 10MG TABLET PO SCH (09:11)
[2021-01-09] MEDS ORDERED: SODIUM CHLORIDE 0.9% 1,000 ML IV SCH (12:00)
[2021-01-09 14:09] VITALS: BP 105/71
[2021-01-09 18:36] VITALS: BP 111/72
[2021-01-09] MEDS: CEFTRIAXONE PMX 1GM/50ML 50 ML IV SCH (22:35)
[2021-01-10] MEDS: LEVOTHYROXINE 75 MCG TABLET PO SCH (05:03)
[2021-01-10] MEDS: INSULIN LISPRO 100 UNITS/ML, PEN SQ-INSULIN SCH ×4 (07:00→21:34)
[2021-01-10 07:12] VITALS: BP 96/63
[2021-01-10 07:47] LABS: ALBUMIN 2.5 g/dL (3.4-5.0); ANION GAP 8 mmol/L (5-15); CALCIUM 8.4 mg/dL (8.5-10.1); CHLORIDE 104 mmol/L (98-107); CREATININE 6.46 mg/dL (0.7-1.3)
[2021-01-10] MEDS: ESCITALOPRAM 10MG TABLET PO SCH (08:42)
[2021-01-10] MEDS: SODIUM CHLORIDE FLUSH 10ML SYR IVF SCH ×2 (08:42→21:34)
[2021-01-10] MEDS: GABAPENTIN 300 MG CAPSULE PO SCH (08:42)
[2021-01-10] MEDS: HYDROcodone/APAP 5/325 TABLET PO PRN ×3 (08:52→21:33)
[2021-01-10] MEDS ORDERED: SODIUM ZIRCONIUM CYCLOSILICATE 5 GM PO ONE (10:00)
[2021-01-10] MEDS: MIDODRINE 5 MG TABLET PO SCH ×3 (10:32→21:34)
[2021-01-10] MEDS ORDERED: SODIUM CHLORIDE 0.9% 1,000 ML IV SCH (12:00)
[2021-01-10 12:14] VITALS: BP 100/65
[2021-01-10] MEDS ORDERED: PHARMACY MAY ADJ FOR RENAL FX MC PRN (15:30)
[2021-01-10] MEDS ORDERED: PIPERACILLIN/TAZO/PMX 3.375GM 50 ML IV SCH (15:30)
[2021-01-10] MEDS: HEPARIN 5,000 UNITS/ML, 1ML SQ SCH ×2 (16:41→23:31)
[2021-01-10 19:31] VITALS: BP 107/72
[2021-01-10] MEDS: PIPERACILLIN/TAZO/PMX 2.25GM 50 ML IVPB SCH (21:33)
[2021-01-10] MEDS ORDERED: PIPERACILLIN/TAZO(ZOSYN) 2.25 GM in NS 50 ML IVPB SCH (22:00)
[2021-01-10] MEDS ORDERED: FLUCONAZOLE 100MG/50ML 100 MG in BAG 1 EACH IVPB SCH (23:00)
[2021-01-11 01:26] VITALS: BP 107/68
[2021-01-11] MEDS: HYDROcodone/APAP 5/325 TABLET PO PRN ×4 (03:11→23:37)
[2021-01-11] MEDS: SODIUM CHLORIDE 0.9% 1,000 ML IV SCH (03:12)
[2021-01-11] MEDS: PIPERACILLIN/TAZO/PMX 2.25GM 50 ML IVPB SCH ×4 (04:06→21:25)
[2021-01-11 04:28] LABS: BASOPHILS % (AUTO) 1 % (0-1); EOSINOPHILS % (AUTO) 5 % (1-7); LYMPHOCYTES % (AUTO) 11 % (22-44); MEAN CORPUSCULAR HEMOGLOBIN 28.9 pg (27.5-34.5); MEAN CORPUSCULAR HGB CONC 32.2 g/dL (33.2-36.2); MEAN PLATELET VOLUME 7.1 fL (7.4-10.4); MONOCYTES % (AUTO) 9 % (2-9); NEUTROPHILS % (AUTO) 75 % (42-75); PLATELET COUNT 202 x10^3/uL (130-400); RED BLOOD COUNT 3.07 x10^6/uL (4.38-5.82); RED CELL DISTRIBUTION WIDTH 15.3 % (9.4-14.8)
[2021-01-11 04:33] LABS: MD NO
[2021-01-11 04:46] LABS: ALBUMIN 2.5 g/dL (3.4-5.0); ANION GAP 9 mmol/L (5-15); CALCIUM 8.2 mg/dL (8.5-10.1); CHLORIDE 103 mmol/L (98-107); CREATININE 6.11 mg/dL (0.7-1.3)
[2021-01-11] MEDS: LEVOTHYROXINE 75 MCG TABLET PO SCH (06:10)
[2021-01-11 07:26] VITALS: BP 108/70
[2021-01-11] MEDS: INSULIN LISPRO 100 UNITS/ML, PEN SQ-INSULIN SCH ×4 (07:39→20:50)
[2021-01-11] MEDS: MIDODRINE 5 MG TABLET PO SCH ×3 (09:05→21:25)
[2021-01-11] MEDS: ESCITALOPRAM 10MG TABLET PO SCH (09:05)
[2021-01-11] MEDS: HEPARIN 5,000 UNITS/ML, 1ML SQ SCH ×3 (09:05→23:36)
[2021-01-11] MEDS: GABAPENTIN 300 MG CAPSULE PO SCH (09:05)
[2021-01-11] MEDS: SODIUM CHLORIDE FLUSH 10ML SYR IVF SCH ×2 (09:06→21:26)
[2021-01-11 13:18] VITALS: BP 105/67
--- NOTE | 2021-01-11 13:40 | NUR ---
Activity sheet posted with recommendation of sitting up at edge of bed 1-2x/day with supervision/assist from nursing to get to edge and back to bed. Able to tolerate at least 35minutes. Addendum: 01/11/21 at 1341 by Brayan Roberts PT Amended: Links added.
[2021-01-11 21:13] VITALS: BP 104/67
[2021-01-11] MEDS: LINEZOLID 600 MG TABLET PO SCH (21:25)
[2021-01-12 00:35] VITALS: BP 121/65
[2021-01-12] MEDS: SODIUM CHLORIDE 0.9% 1,000 ML IV SCH (03:40)
[2021-01-12] MEDS: PIPERACILLIN/TAZO/PMX 2.25GM 50 ML IVPB SCH ×4 (04:52→22:05)
[2021-01-12] MEDS: LEVOTHYROXINE 75 MCG TABLET PO SCH (05:12)
[2021-01-12] MEDS: HYDROcodone/APAP 5/325 TABLET PO PRN ×3 (05:13→20:11)
[2021-01-12 05:48] LABS: BASOPHILS % (AUTO) 1 % (0-1); EOSINOPHILS % (AUTO) 6 % (1-7); LYMPHOCYTES % (AUTO) 14 % (22-44); MEAN CORPUSCULAR HEMOGLOBIN 29.6 pg (27.5-34.5); MEAN CORPUSCULAR HGB CONC 33.1 g/dL (33.2-36.2); MEAN PLATELET VOLUME 6.8 fL (7.4-10.4); MONOCYTES % (AUTO) 8 % (2-9); NEUTROPHILS % (AUTO) 72 % (42-75); PLATELET COUNT 253 x10^3/uL (130-400); RED BLOOD COUNT 3.21 x10^6/uL (4.38-5.82); RED CELL DISTRIBUTION WIDTH 15.9 % (9.4-14.8)
[2021-01-12 05:49] LABS: MD NO
[2021-01-12 05:51] LABS: CHLORIDE 106 mmol/L (98-107)
[2021-01-12 05:55] LABS: ALBUMIN 2.4 g/dL (3.4-5.0); ANION GAP 11 mmol/L (5-15); CALCIUM 8.2 mg/dL (8.5-10.1)
[2021-01-12 06:45] VITALS: BP 119/76
[2021-01-12] MEDS: INSULIN LISPRO 100 UNITS/ML, PEN SQ-INSULIN SCH ×4 (07:40→21:00)
[2021-01-12] MEDS: GABAPENTIN 300 MG CAPSULE PO SCH (08:01)
[2021-01-12] MEDS: HEPARIN 5,000 UNITS/ML, 1ML SQ SCH ×2 (08:01→16:24)
[2021-01-12] MEDS: ESCITALOPRAM 10MG TABLET PO SCH (08:01)
[2021-01-12] MEDS: LINEZOLID 600 MG TABLET PO SCH ×2 (08:01→20:11)
[2021-01-12] MEDS: MIDODRINE 5 MG TABLET PO SCH ×3 (08:02→20:11)
[2021-01-12] MEDS: SODIUM CHLORIDE FLUSH 10ML SYR IVF SCH ×2 (08:02→22:03)
[2021-01-12 12:59] VITALS: BP 126/78
[2021-01-12 19:35] VITALS: BP 110/57
[2021-01-12 20:54] VITALS: BP 113/73
[2021-01-13 00:51] VITALS: BP 124/64
[2021-01-13] MEDS: HEPARIN 5,000 UNITS/ML, 1ML SQ SCH ×3 (00:56→16:26)
[2021-01-13] MEDS: HYDROcodone/APAP 5/325 TABLET PO PRN ×3 (02:52→17:04)
[2021-01-13] MEDS: SODIUM CHLORIDE 0.9% 1,000 ML IV SCH (02:56)
[2021-01-13 05:33] LABS: BASOPHILS % (AUTO) 1 % (0-1); EOSINOPHILS % (AUTO) 6 % (1-7); LYMPHOCYTES % (AUTO) 16 % (22-44); MEAN CORPUSCULAR HEMOGLOBIN 28.8 pg (27.5-34.5); MEAN CORPUSCULAR HGB CONC 32.4 g/dL (33.2-36.2); MEAN PLATELET VOLUME 6.6 fL (7.4-10.4); MONOCYTES % (AUTO) 8 % (2-9); NEUTROPHILS % (AUTO) 70 % (42-75); PLATELET COUNT 302 x10^3/uL (130-400); RED BLOOD COUNT 2.97 x10^6/uL (4.38-5.82); RED CELL DISTRIBUTION WIDTH 15.6 % (9.4-14.8)
[2021-01-13 05:34] LABS: ALBUMIN 2.4 g/dL (3.4-5.0); ANION GAP 10 mmol/L (5-15); CALCIUM 8.3 mg/dL (8.5-10.1); CHLORIDE 107 mmol/L (98-107); CREATININE 4.89 mg/dL (0.7-1.3)
[2021-01-13 05:35] LABS: MD NO
[2021-01-13] MEDS: PIPERACILLIN/TAZO/PMX 2.25GM 50 ML IVPB SCH ×4 (06:09→22:18)
[2021-01-13] MEDS: LEVOTHYROXINE 75 MCG TABLET PO SCH (06:09)
[2021-01-13] MEDS: ALBUTEROL HFA 90 MCG/SPRAY INH PRN ×2 (06:10→16:57)
[2021-01-13] MEDS: INSULIN LISPRO 100 UNITS/ML, PEN SQ-INSULIN SCH ×4 (07:00→20:42)
[2021-01-13 07:06] VITALS: BP 116/68
[2021-01-13] MEDS ORDERED: SODIUM ZIRCONIUM CYCLOSILICATE 5 GM PO ONE (09:00)
[2021-01-13] MEDS: GABAPENTIN 300 MG CAPSULE PO SCH (09:34)
[2021-01-13] MEDS: SODIUM CHLORIDE FLUSH 10ML SYR IVF SCH ×2 (09:34→20:42)
[2021-01-13] MEDS: LINEZOLID 600 MG TABLET PO SCH ×2 (09:34→20:41)
[2021-01-13] MEDS: ESCITALOPRAM 10MG TABLET PO SCH (09:35)
[2021-01-13] MEDS: MIDODRINE 5 MG TABLET PO SCH ×3 (09:35→20:41)
[2021-01-13 13:13] VITALS: BP 116/71
[2021-01-13 19:45] VITALS: BP 113/55
[2021-01-14 00:16] VITALS: BP 134/79
[2021-01-14] MEDS: HEPARIN 5,000 UNITS/ML, 1ML SQ SCH ×3 (00:56→15:43)
[2021-01-14] MEDS: PIPERACILLIN/TAZO/PMX 2.25GM 50 ML IVPB SCH ×4 (04:03→22:19)
[2021-01-14] MEDS: LEVOTHYROXINE 75 MCG TABLET PO SCH (05:31)
[2021-01-14 05:40] LABS: BASOPHILS % (AUTO) 1 % (0-1); EOSINOPHILS % (AUTO) 5 % (1-7); LYMPHOCYTES % (AUTO) 16 % (22-44); MEAN CORPUSCULAR HEMOGLOBIN 29.1 pg (27.5-34.5); MEAN PLATELET VOLUME 6.5 fL (7.4-10.4); MONOCYTES % (AUTO) 8 % (2-9); NEUTROPHILS % (AUTO) 71 % (42-75); PLATELET COUNT 311 x10^3/uL (130-400); RED BLOOD COUNT 3.11 x10^6/uL (4.38-5.82); RED CELL DISTRIBUTION WIDTH 15.9 % (9.4-14.8)
[2021-01-14 05:44] LABS: ALBUMIN 2.6 g/dL (3.4-5.0); ANION GAP 7 mmol/L (5-15); CALCIUM 8.6 mg/dL (8.5-10.1); CHLORIDE 112 mmol/L (98-107); CREATININE 4.06 mg/dL (0.7-1.3)
[2021-01-14 05:52] LABS: MD NO
[2021-01-14] MEDS: INSULIN LISPRO 100 UNITS/ML, PEN SQ-INSULIN SCH ×4 (07:00→20:13)
[2021-01-14 08:10] VITALS: BP 163/79
[2021-01-14] MEDS: SODIUM CHLORIDE FLUSH 10ML SYR IVF SCH ×2 (08:25→20:13)
[2021-01-14] MEDS: MIDODRINE 5 MG TABLET PO SCH ×3 (09:00→20:13)
[2021-01-14] MEDS: ESCITALOPRAM 10MG TABLET PO SCH (09:18)
[2021-01-14] MEDS: GABAPENTIN 300 MG CAPSULE PO SCH (09:18)
[2021-01-14] MEDS: LINEZOLID 600 MG TABLET PO SCH ×2 (09:18→20:13)
[2021-01-14] MEDS: HYDROcodone/APAP 5/325 TABLET PO PRN ×2 (09:19→15:44)
[2021-01-14] MEDS: ONDANSETRON 2MG/ML, 2ML IVPush PRN (09:23)
[2021-01-14] MEDS ORDERED: SODIUM ZIRCONIUM CYCLOSILICATE 5 GM PO ONE ×2 (12:00→12:30)
[2021-01-14] MEDS ORDERED: SODIUM ZIRCONIUM CYCLOSILICATE 10 GM PO ONE (12:00)
[2021-01-14 13:24] VITALS: BP 109/64
[2021-01-14 19:49] VITALS: BP 113/60
[2021-01-15 00:35] VITALS: BP 122/65
[2021-01-15] MEDS: HEPARIN 5,000 UNITS/ML, 1ML SQ SCH ×3 (00:37→16:54)
[2021-01-15] MEDS: PIPERACILLIN/TAZO/PMX 2.25GM 50 ML IVPB SCH ×4 (04:18→22:30)
[2021-01-15] MEDS: LEVOTHYROXINE 75 MCG TABLET PO SCH (05:29)
[2021-01-15 06:12] LABS: ALBUMIN 2.7 g/dL (3.4-5.0); ANION GAP 8 mmol/L (5-15); CALCIUM 8.9 mg/dL (8.5-10.1); CHLORIDE 113 mmol/L (98-107)
[2021-01-15 06:16] LABS: ALANINE AMINOTRANSFERASE 73 U/L (12-78); ALKALINE PHOSPHATASE 187 U/L (45-117); BILIRUBIN,TOTAL 0.5 mg/dL (0.2-1.0); CREATININE 2.92 mg/dL (0.7-1.3); TOTAL PROTEIN 7.7 g/dL (6.4-8.2)
[2021-01-15 06:54] VITALS: BP 145/79
[2021-01-15] MEDS: INSULIN LISPRO 100 UNITS/ML, PEN SQ-INSULIN SCH (07:00)
[2021-01-15] MEDS: HYDROcodone/APAP 5/325 TABLET PO PRN (07:40)
[2021-01-15] MEDS: ESCITALOPRAM 10MG TABLET PO SCH (08:57)
[2021-01-15] MEDS: MIDODRINE 5 MG TABLET PO SCH ×3 (08:57→20:24)
[2021-01-15] MEDS: GABAPENTIN 300 MG CAPSULE PO SCH (08:57)
[2021-01-15] MEDS: LINEZOLID 600 MG TABLET PO SCH ×2 (08:57→20:24)
[2021-01-15] MEDS: SODIUM CHLORIDE FLUSH 10ML SYR IVF SCH ×2 (09:00→20:24)
[2021-01-15 19:30] VITALS: BP 151/85
[2021-01-16] MEDS: HYDROcodone/APAP 5/325 TABLET PO PRN ×4 (00:04→23:49)
[2021-01-16] MEDS: HEPARIN 5,000 UNITS/ML, 1ML SQ SCH ×3 (00:04→16:53)
[2021-01-16 01:02] VITALS: BP 148/78
[2021-01-16] MEDS: PIPERACILLIN/TAZO/PMX 2.25GM 50 ML IVPB SCH ×4 (03:30→22:09)
[2021-01-16] MEDS: LEVOTHYROXINE 75 MCG TABLET PO SCH (05:24)
[2021-01-16 05:41] LABS: BASOPHILS % (AUTO) 1 % (0-1); EOSINOPHILS % (AUTO) 4 % (1-7); LYMPHOCYTES % (AUTO) 17 % (22-44); MEAN CORPUSCULAR HEMOGLOBIN 29.1 pg (27.5-34.5); MEAN CORPUSCULAR HGB CONC 33.3 g/dL (33.2-36.2); MEAN PLATELET VOLUME 6.2 fL (7.4-10.4); MONOCYTES % (AUTO) 8 % (2-9); NEUTROPHILS % (AUTO) 70 % (42-75); PLATELET COUNT 321 x10^3/uL (130-400); RED BLOOD COUNT 3.33 x10^6/uL (4.38-5.82); RED CELL DISTRIBUTION WIDTH 15.7 % (9.4-14.8)
[2021-01-16 05:46] LABS: MD NO
[2021-01-16 05:55] LABS: ALBUMIN 2.8 g/dL (3.4-5.0); ANION GAP 8 mmol/L (5-15); CALCIUM 8.9 mg/dL (8.5-10.1); CHLORIDE 112 mmol/L (98-107); CREATININE 2.31 mg/dL (0.7-1.3)
[2021-01-16] MEDS: K-PHOS NEUTRAL 250MG TAB PO SCH ×2 (07:49→21:03)
[2021-01-16] MEDS: ESCITALOPRAM 10MG TABLET PO SCH (07:49)
[2021-01-16] MEDS: GABAPENTIN 300 MG CAPSULE PO SCH (07:50)
[2021-01-16] MEDS: LINEZOLID 600 MG TABLET PO SCH ×2 (07:50→21:03)
[2021-01-16] MEDS: SODIUM CHLORIDE FLUSH 10ML SYR IVF SCH ×2 (07:51→21:03)
[2021-01-16] MEDS: MIDODRINE 5 MG TABLET PO SCH ×3 (07:51→21:03)
[2021-01-16 10:09] VITALS: BP 144/72
[2021-01-16 13:06] VITALS: BP 147/86
[2021-01-16] MEDS ORDERED: hydrOXyzine 10MG TABLET PO PRN (13:30)
[2021-01-16 19:41] VITALS: BP 158/81
[2021-01-16] MEDS: SODIUM BICARBONATE 650 MG TABLET PO SCH (21:03)
[2021-01-17 00:15] VITALS: BP 162/89
[2021-01-17] MEDS: HEPARIN 5,000 UNITS/ML, 1ML SQ SCH ×2 (00:40→10:13)
[2021-01-17] MEDS: PIPERACILLIN/TAZO/PMX 2.25GM 50 ML IVPB SCH ×2 (03:42→10:13)
[2021-01-17] MEDS: LEVOTHYROXINE 75 MCG TABLET PO SCH (05:23)
[2021-01-17 05:37] LABS: ANION GAP 5 mmol/L (5-15); CALCIUM 8.7 mg/dL (8.5-10.1); CHLORIDE 116 mmol/L (98-107); CREATININE 2.05 mg/dL (0.7-1.3)
[2021-01-17] MEDS: HYDROcodone/APAP 5/325 TABLET PO PRN ×2 (05:51→11:57)
[2021-01-17 07:08] VITALS: BP 134/83
[2021-01-17] MEDS: SODIUM CHLORIDE FLUSH 10ML SYR IVF SCH (10:14)
[2021-01-17] MEDS: SODIUM BICARBONATE 650 MG TABLET PO SCH (10:14)
[2021-01-17] MEDS: MIDODRINE 5 MG TABLET PO SCH (10:15)
[2021-01-17] MEDS: ESCITALOPRAM 10MG TABLET PO SCH (10:15)
[2021-01-17] MEDS: GABAPENTIN 300 MG CAPSULE PO SCH (10:15)
[2021-01-17] MEDS: LINEZOLID 600 MG TABLET PO SCH (10:16)
[2021-01-17] MEDS ORDERED: HYDR-3248 PO (10:51)
[2021-01-17] MEDS ORDERED: LEVO75TA PO (10:51)
[2021-01-17] MEDS ORDERED: MIDO5TAB9 PO (10:51)
[2021-01-17] MEDS ORDERED: SODI650T PO (10:51)
[2021-01-17] MEDS ORDERED: ESCI10TA97 PO (10:51)
[2021-01-17] MEDS ORDERED: LORazepam 1MG TABLET PO ONE (13:00)
== END 2021-01-17 13:31 | DRG 682 ==
LOC: ED 14:32 → EDIP 15:20 → 4WST 18:15 → 3N 01-12 20:40
PROVIDERS: ADMIT Internal Medicine; ATTEND Hospitalist
PROC: 5A1D70Z Performance of Urinary Filtration, Intermittent, Less than 6 Hours Per Day (ICD-10-PCS; 2021-01-01)
PROC: 02HV33Z Insertion of Infusion Device into Superior Vena Cava, Percutaneous Approach (ICD-10-PCS; 2021-01-02)
PROC: B548ZZA Ultrasonography of Superior Vena Cava, Guidance (ICD-10-PCS; 2021-01-02)
PROC: 5A1D70Z Performance of Urinary Filtration, Intermittent, Less than 6 Hours Per Day (ICD-10-PCS; 2021-01-02)
PROC: 5A1D70Z Performance of Urinary Filtration, Intermittent, Less than 6 Hours Per Day (ICD-10-PCS; 2021-01-04)
PROC: 0T9B70Z Drainage of Bladder with Drainage Device, Via Natural or Artificial Opening (ICD-10-PCS; principal; 2021-01-08)
PROC: 5A1D70Z Performance of Urinary Filtration, Intermittent, Less than 6 Hours Per Day (ICD-10-PCS; 2021-01-08)
DX: N17.0 Acute kidney failure with tubular necrosis (principal); J96.01 Acute respiratory failure with hypoxia; G93.41 Metabolic encephalopathy; I13.0 Hypertensive heart and chronic kidney disease with heart failure and stage 1 through stage 4 chronic kidney disease, or unspecified chronic kidney disease; D68.69 Other thrombophilia; E87.1 Hypo-osmolality and hyponatremia; Z68.43 Body mass index [BMI] 50.0-59.9, adult; Z16.21 Resistance to vancomycin; N39.0 Urinary tract infection, site not specified; N18.32 Chronic kidney disease, stage 3b; I50.9 Heart failure, unspecified; I48.0 Paroxysmal atrial fibrillation; E87.5 Hyperkalemia; E11.22 Type 2 diabetes mellitus with diabetic chronic kidney disease; E66.01 Morbid (severe) obesity due to excess calories; D63.8 Anemia in other chronic diseases classified elsewhere; E86.9 Volume depletion, unspecified; G89.29 Other chronic pain; B95.2 Enterococcus as the cause of diseases classified elsewhere; E11.319 Type 2 diabetes mellitus with unspecified diabetic retinopathy without macular edema; M54.9 Dorsalgia, unspecified; E11.42 Type 2 diabetes mellitus with diabetic polyneuropathy; E03.9 Hypothyroidism, unspecified; F41.1 Generalized anxiety disorder; Z90.49 Acquired absence of other specified parts of digestive tract; Z79.4 Long term (current) use of insulin; Z79.01 Long term (current) use of anticoagulants; Z93.2 Ileostomy status; Z90.89 Acquired absence of other organs; Z88.6 Allergy status to analgesic agent; Z88.8 Allergy status to other drugs, medicaments and biological substances; Z91.19 Patient's noncompliance with other medical treatment and regimen; Z74.01 Bed confinement status; Z78.1 Physical restraint status; Z79.899 Other long term (current) drug therapy
CPT/HCPCS: 36415; 36556; 71045; 76770; 76937; 77001; 80048; 80053; 80069; 81001; 82140; 82306; 82436; 82570; 82962; 83605; 83735; 83935; 83970; 84100; 84133; 84300; 84443; 84484; 85025; 86480; 86704; 86706; 87040; 87070; 87077; 87086; 87186; 87205; 87324; 87340; 90935; 93005; 99285; C1894; G0378; J0696; J1644; J1815; J2405; J2543; J7070; C1751; J1450; J1630; J1642; J2270; J7030; J7050

== ENCOUNTER 2021-01-26 13:09 | Inpatient (IN) | payer MEDICAID ==
[~2021-01-26] VITALS: Ht 193 cm; Wt 194.0 kg
[~2021-01-26 13:09] MED LIST changes: +LEVO75TA PO; +MIDO5TAB9 PO; +SODI650T PO
[2021-01-26] MEDS ORDERED: AMIODARONE 50 MG/ML, 3ML ONE ×2 (13:18→13:29)
[2021-01-26] MEDS ORDERED: CALCIUM CHLORIDE 10%, 10ML SYR ONE ×4 (13:22→14:07)
[2021-01-26] MEDS ORDERED: ONDANSETRON 2MG/ML, 2ML ONE ×2 (13:29→13:43)
[2021-01-26] MEDS ORDERED: ONDANSETRON 2MG/ML, 2ML IVPush ONE (13:30)
[2021-01-26] MEDS ORDERED: AMIODARONE 450 MG in DEXTROSE 5% 241 ML IV PRN ×3 (13:30→21:06)
[2021-01-26] MEDS ORDERED: AMIODARONE 50 MG/ML, 3ML IVPush ONE (13:30)
[2021-01-26] MEDS ORDERED: SODIUM CHLORIDE FLUSH 10ML SYR IVF ONE (13:30)
[2021-01-26] MEDS ORDERED: CALCIUM CHLORIDE 10%, 10ML SYR IVPush ONE ×4 (13:30→15:00)
[2021-01-26] MEDS ORDERED: SODIUM CHLORIDE 0.9% 1,000ML IVBOLUS ONE ×2 (13:30→15:00)
[2021-01-26] MEDS ORDERED: DEXTROSE 50%, 50ML SYRINGE ONE ×2 (13:42→13:43)
[2021-01-26] MEDS ORDERED: INSULIN SINGLE DOSE, ER ONE (13:43)
[2021-01-26 13:45] LABS: MEAN CORPUSCULAR HEMOGLOBIN 29.3 pg (27.5-34.5); MEAN CORPUSCULAR HGB CONC 32.3 g/dL (33.2-36.2); MEAN PLATELET VOLUME 7.4 fL (7.4-10.4); PLATELET COUNT 278 x10^3/uL (130-400); RED BLOOD COUNT 4.21 x10^6/uL (4.38-5.82); RED CELL DISTRIBUTION WIDTH 16.8 % (9.4-14.8)
[2021-01-26 13:49] LABS: ALANINE AMINOTRANSFERASE 40 U/L (12-78); ALBUMIN 3.5 g/dL (3.4-5.0); ANION GAP 10 mmol/L (5-15); CALCIUM 9.8 mg/dL (8.5-10.1); CHLORIDE 107 mmol/L (98-107); CREATININE 7.12 mg/dL (0.7-1.3)
--- NOTE | 2021-01-26 13:50 | NUR ---
LATE ENTRY D/T PT CARE: BIB [facility] FROM [facility]. PT HAS BEEN LETHARGIC X2 DAYS AND CHANGE IN URINE. HR 150s. ACCOUNTS PAYABLE COORDINATOR [facility]: PIV 20G RAC, 10ML 10% CA, 500ML NS, 25 BICARB, CONTINUOUS ALBUTERAL TX. MD AT BEDSIDE. EKG COMPLETE. V/O RECEIVED FOR 150MG AMIO IV PUSH GIVEN AT 1320 10ML 10% CA SLOW IV PUSH GIVEN AT 1325 ZOFRAN 4MG GIVEN AT 1330 150MG AMIO IV PUSH GIVEN AT 1334 ISTAT LAB SHOWED POTASSIUM 7.4 PT HAS OSTOMY AND INDWELLING MARIN. MARIN HAS DARK URINE IN BAG. PT MOVED TO TRAUMA 3 REPORT GIVEN TO GUY OBRIEN.
--- NOTE | 2021-01-26 13:56 | NUR ---
pt remains in VT with strong carotid pulses, pt awake, alert, oriented. MD Young at bedside for central line placement. all monitors in place.
[2021-01-26] MEDS ORDERED: SODIUM CHLORIDE 0.9%, 500ML IVBOLUS ONE (14:00)
[2021-01-26] MEDS ORDERED: INSULIN REGULAR 100 UNITS/ML, 3ML VIAL IVPush ONE (14:00)
[2021-01-26] MEDS ORDERED: FILTER 0.22 MICRON FOR AMIODARONE IV PRN (14:00)
--- NOTE | 2021-01-26 14:03 | NUR ---
MD Young notified k level 8, bun 111. still at bedside. central line in progress. bp now 86/59, HR 2 Addendum: 01/26/21 at 1709 by JOSE MD Young notified k level 8, bun 111. still at bedside. central line in progress. bp now 86/59, HR 200, VT with pulse.
[2021-01-26 14:05] LABS: ALKALINE PHOSPHATASE 227 U/L (45-117); BILIRUBIN,TOTAL 0.4 mg/dL (0.2-1.0); TOTAL PROTEIN 9.4 g/dL (6.4-8.2)
[2021-01-26 14:07] LABS: MD YES
[2021-01-26 14:09] LABS: BAND#(MANUAL) 0.26 x10^3/uL; BANDS%(MANUAL) 2 % (0-7); BASOS#(MANUAL) 0.13 x10^3/uL (0-0.1); BASOS% (MANUAL) 1 % (0-1); EOS#(MANUAL) 0.13 x10^3/uL (0.0-0.4); EOS% (MANUAL) 1 % (1-7); LYMPHS% (MANUAL) 18 % (22-44); MONOS#(MANUAL) 1.02 x10^3/uL (0.3-2.7); MONOS% (MANUAL) 8 % (2-9)
[2021-01-26 14:11] LABS: METAMYELOCYTES% (MANUAL) 2 % (0-1); MYELOCYTES# (MANUAL) 0.26 x10^3/uL (0-0); MYELOCYTES% (MANUAL) 2 % (0-0); OTHER CELLS # (MANUAL) 0.13 x10^3/uL (0-0); OTHER CELLS % (MANUAL) 1 % (0-0)
[2021-01-26 14:12] LABS: METAMYELOCYTES# (MANUAL) 0.26 x10^3/uL (0-0); SEG#(MANUAL) 8.32 x10^3/uL (1.8-6.8); SEGS% (MANUAL) 65 % (42-75)
[2021-01-26 14:13] LABS: <PLATELET ESTIMATE> ADEQUATE; <PLT MORPHOLOGY> NORMAL PLT MORPH; <RBC MORPHOLOGY> NORMAL
[2021-01-26] MEDS: SODIUM BICARBONATE 8.4% 150 MEQ in DEXTROSE 5% 1,000 ML IV SCH ×2 (14:35→23:41)
[2021-01-26] MEDS ORDERED: FENTANYL PF 100 MCG/2ML ONE (14:39)
[2021-01-26] MEDS ORDERED: MAGNESIUM SULFATE PMX 2GM/50ML 50 ML ONE (14:41)
--- NOTE | 2021-01-26 14:41 | NUR ---
bp declining , pt becoming confused. bp 46/26 automatic, 92/palp manual. pt still in VT with pulses, MD notified, at bedside. MD to cardiovert.
[2021-01-26] MEDS ORDERED: SODIUM BICARB 8.4%, 50ML SYRINGE ONE (14:45)
[2021-01-26] MEDS ORDERED: LABETALOL 5MG/ML, 20ML IVPush PRN (15:00)
[2021-01-26] MEDS ORDERED: POLYETHYLENE GLYCOL 17 GM PACKET PO PRN (15:00)
[2021-01-26] MEDS ORDERED: ACETAMINOPHEN 325 MG TABLET PO PRN (15:00)
[2021-01-26] MEDS ORDERED: CEFTRIAXONE 1,000 MG IV ONE (15:00)
[2021-01-26] MEDS ORDERED: FENTANYL PF 100 MCG/2ML IVPush ONE (15:00)
[2021-01-26] MEDS ORDERED: BISACODYL 10 MG SUPP PR PRN (15:00)
[2021-01-26] MEDS ORDERED: ONDANSETRON 2MG/ML, 2ML IVPush PRN (15:00)
[2021-01-26] MEDS ORDERED: MAGNESIUM SULFATE PMX 2GM/50ML 50 ML IV ONE (15:00)
--- NOTE | 2021-01-26 15:04 | NUR ---
pt premedicated with 100mcg fentanyl, cardioverted with 200J. now in sinus tach, bp 137/65. HR 93. pt a&ox4. resps even and unlabored. technical services consultant at bedside for emergent dialysis.
[2021-01-26] MEDS ORDERED: CEFTRIAXONE PMX 2GM/50ML 50 ML ONE ×2 (15:19→15:21)
[2021-01-26] MEDS ORDERED: SODIUM BICARB 8.4%, 50ML SYRINGE IVPush ONE (15:30)
[2021-01-26] MEDS ORDERED: FILTER 0.22 MICRON IV PRN (15:30)
[2021-01-26] MEDS ORDERED: AMIODARONE 150 MG in DEXTROSE 5% 97 ML IVPB ONE (15:30)
--- NOTE | 2021-01-26 15:33 | NUR ---
Bedside report given to CAMILLE Baker who is assuming care. MD Young notified pt has met criteria for septic shock, weight based bolus would be 5250 mL. states hypotension was secondary to cardiogenic shock, states 2L ns bolus previously ordered is sufficient. notified pt arrived with holguin cath, instructed RN to change holguin before collecting urine sample. CAMILLE Baker informed. pt is a&o, nsr on monitor car operator, no ectopy. dialysis in progress. CAMILLE Baker at bedside. pt reassessed by MD Young.
--- NOTE | 2021-01-26 15:36 | NUR ---
RN clarified with MD, amiodarone to continue at previously ordered rate despite conversion to sinus rhythm. Primary RN Olivia rodriguez.
--- NOTE | 2021-01-26 15:40 | NUR ---
ASSUMED CARE OF PT. DIALYSIS NURSE AT BEDSIDE SETTING UP. CRASH CART PADS IN PLACE AND PT ON MONITOR, HR 95. BREATHING EVEN AND UNLABORED. PT NOTED TO HAVE AN ILEOSTOMY BAG THAT IS LEAKING AND ANOTER OSTOMY NEXT TO WITH SMALL AMOUNT OF EXORIATED SKIN NOTED AROUND THE SITES. TO PLACE OSTOMY BAGS WHEN THEY ARRIVE.
--- NOTE | 2021-01-26 15:40 | NUR ---
ERETHEMA AROUND SITE APPROX 6" IN DIAMETER
[2021-01-26] MEDS: INSULIN LISPRO 100 UNITS/ML, PEN SQ-INSULIN SCH ×2 (16:00→23:42)
--- NOTE | 2021-01-26 16:27 | NUR ---
DIALYSIS STARTED. PT A&O TO NAME AND LOCATION. CONFUSION NOTED. ASKING IF WE CAN PUT A PLANT IN THE SINK IN THE ROOM.
--- NOTE | 2021-01-26 16:36 | NUR ---
CLERK TYPIST AT BESIDE
--- NOTE | 2021-01-26 17:00 | NUR ---
COLSTOMY BAGS IN PLACE. REMAINS ON DIALYSIS, NO DISTRESS
--- NOTE | 2021-01-26 17:31 | NUR ---
CALLED DR. MONROY. OK FOR PATIENT TO BE ADMITTED TO TELE INSTEAD OF CRITICAL CARE. NOTIFIED CCU SUP, KEYANNA, WHO STATES THIS IS APPROVED BY DR. BOTELLO, LONG DR. MONROY APPROVES. ORDER CHANGED.
--- NOTE | 2021-01-26 17:32 | NUR ---
CLOUDY URINE NOTED IN URINE COLLECTION BAG WITH 40 ML IN COLLECTION IN LAST 2 HOURS.
--- NOTE | 2021-01-26 18:19 | NUR ---
REPORT TO LO OBRIEN
--- NOTE | 2021-01-26 18:19 | NUR ---
NOTE CONTINUATION: REPORT TO LO OBRIEN TELE NURSE. PT AWAITING DIALYSIS COMPLETION AND REPEAT K RESULTS BEFORE BEING TX TO FLOOR
--- NOTE | 2021-01-26 18:59 | NUR ---
REPOR TO [facility]. PT REMAINS ON DIALYSIS AT THIS TIME, RESTING WITH EYES CLOSED
--- NOTE | 2021-01-26 19:02 | NUR ---
REPORT RECEIVED AND PT IN BED RESTING COMFORTABLY, PT AWAKENS AND STARTLES ON OCCASION. AWAKENS EASILY, AND IS A&OX2. PERRLA, ABLE TO SPEAK AT TIMES, MILD CONFUSION. COMPLIANCE PARALEGAL AT BEDSIDE, AND PT RECEIVING DIALYSIS TO FINISH AT 1925. AIRWAY INTACT, GOOD AERATION. ABDOMEN FULL AND ROUND, AND PT IS APPROX 170KG. AND HAS TWO OSTOMY BAGS TO LEFT SIDE ABDOMEN, AND ARE INTACT, NO LEAKS AND NO DRAINAGE INSIDE BAGS AT THIS TIME. CHANGED EARLIER BY DAYSAIDA RN. PT HAS MARIN IN PLACE, WITH DARK BROWN URINE COMING OUT, SAMPLE SENT TO LAB. PT MOVES EXTREMITIES X4, BUT HAS GEN. WEAKNESS.
--- NOTE | 2021-01-26 19:08 | NUR ---
PT HAS DIALYSIS CATHETER LINES IN HIS RIGHT EJ/A. PT HAS A 20G PIV TO THE RIGHT AC. MEDS INFUSING PER EMAR.
--- NOTE | 2021-01-26 19:20 | NUR ---
DIALYSIS FINISHING NOW, BLOOD DRAWN FOR A REPEAT POTASSIUM LEVEL, AND ALSO FSBS DONE AND IS 175MG/DL, AND MD ADVISED. UA COLLECTED AND SENT TO LAB. IV MEDS INFUSING WITHOUT ISSUE.
--- NOTE | 2021-01-26 19:34 | NUR ---
REPORT CALLED TO FLOOR RN. PT PREPARED FOR TRANSPORT.
[2021-01-26 20:06] LABS: MICROSCOPIC INDICATED
[2021-01-26 20:18] VITALS: BP 124/86
[2021-01-26] MEDS: SODIUM CHLORIDE 0.9% 1,000 ML IV SCH (22:29)
[2021-01-27] MEDS: SODIUM CHLORIDE 0.9% 1,000 ML IV SCH ×3 (01:00→23:58)
[2021-01-27 03:43] VITALS: BP 117/77
[2021-01-27 05:40] LABS: ANION GAP 8 mmol/L (5-15); CALCIUM 9.1 mg/dL (8.5-10.1); CHLORIDE 96 mmol/L (98-107)
[2021-01-27 05:43] LABS: ALANINE AMINOTRANSFERASE 25 U/L (12-78); ALKALINE PHOSPHATASE 162 U/L (45-117); BILIRUBIN,TOTAL 0.5 mg/dL (0.2-1.0); CREATININE 5.24 mg/dL (0.7-1.3); TOTAL PROTEIN 7.1 g/dL (6.4-8.2)
[2021-01-27] MEDS ORDERED: LINEZOLID PMX 600MG/300ML 300 ML IV SCH (06:30)
[2021-01-27] MEDS: LEVOTHYROXINE 75 MCG TABLET PO SCH (06:40)
[2021-01-27 06:51] LABS: BASOPHILS % (AUTO) 1 % (0-1); EOSINOPHILS % (AUTO) 2 % (1-7); LYMPHOCYTES % (AUTO) 13 % (22-44); MEAN CORPUSCULAR HEMOGLOBIN 29.4 pg (27.5-34.5); MEAN CORPUSCULAR HGB CONC 33.5 g/dL (33.2-36.2); MEAN PLATELET VOLUME 7.4 fL (7.4-10.4); MONOCYTES % (AUTO) 10 % (2-9); NEUTROPHILS % (AUTO) 74 % (42-75); PLATELET COUNT 253 x10^3/uL (130-400); RED BLOOD COUNT 3.24 x10^6/uL (4.38-5.82); RED CELL DISTRIBUTION WIDTH 16.7 % (9.4-14.8)
[2021-01-27 06:52] LABS: MD NO
[2021-01-27] MEDS: MEROPENEM 500 MG in SODIUM CHLORIDE 0.9% 100 ML IV SCH ×2 (06:57→17:28)
[2021-01-27 07:08] VITALS: BP 103/66
[2021-01-27] MEDS: PANTOPRAZOLE 40MG TABLET PO SCH (07:41)
[2021-01-27] MEDS: SENNA/DOCUSATE TABLET PO SCH (07:41)
[2021-01-27] MEDS: OXYcodone IR 5MG TABLET PO PRN ×3 (07:43→23:57)
[2021-01-27] MEDS: INSULIN LISPRO 100 UNITS/ML, PEN SQ-INSULIN SCH ×4 (07:46→21:00)
[2021-01-27] MEDS ORDERED: CYCLOBENZAPRINE 10 MG TABLET PO PRN (09:30)
[2021-01-27] MEDS: APIXABAN 5 MG TABLET PO SCH ×2 (10:45→23:57)
[2021-01-27] MEDS: INSULIN HUMULIN 70/30, 3ML PEN SQ-INSULIN SCH (10:45)
[2021-01-27 12:15] VITALS: BP 115/71
[2021-01-27 20:50] VITALS: BP 117/60
[2021-01-27] MEDS: ATORVASTATIN 40 MG TABLET PO SCH (23:57)
[2021-01-27] MEDS: GABAPENTIN 300 MG CAPSULE PO SCH (23:57)
[2021-01-27] MEDS: LINEZOLID 600 MG TABLET PO SCH (23:58)
[2021-01-28] MEDS: INSULIN HUMULIN 70/30, 3ML PEN SQ-INSULIN SCH ×3 (00:02→21:00)
[2021-01-28 02:00] VITALS: BP 105/71
[2021-01-28 06:21] LABS: BASOPHILS % (AUTO) 1 % (0-1); EOSINOPHILS % (AUTO) 4 % (1-7); LYMPHOCYTES % (AUTO) 16 % (22-44); MEAN CORPUSCULAR HEMOGLOBIN 28.9 pg (27.5-34.5); MEAN PLATELET VOLUME 7.4 fL (7.4-10.4); MONOCYTES % (AUTO) 12 % (2-9); NEUTROPHILS % (AUTO) 68 % (42-75); PLATELET COUNT 238 x10^3/uL (130-400); RED BLOOD COUNT 3.26 x10^6/uL (4.38-5.82); RED CELL DISTRIBUTION WIDTH 17.2 % (9.4-14.8)
[2021-01-28 06:24] LABS: ANION GAP 6 mmol/L (5-15); CHLORIDE 102 mmol/L (98-107); CREATININE 3.35 mg/dL (0.7-1.3)
[2021-01-28 06:39] LABS: MD NO
[2021-01-28] MEDS: MEROPENEM 500 MG in SODIUM CHLORIDE 0.9% 100 ML IV SCH (06:44)
[2021-01-28] MEDS: LEVOTHYROXINE 75 MCG TABLET PO SCH (06:44)
[2021-01-28] MEDS: INSULIN LISPRO 100 UNITS/ML, PEN SQ-INSULIN SCH ×4 (07:00→21:00)
[2021-01-28 07:13] VITALS: BP 112/70
[2021-01-28] MEDS: FLUCONAZOLE 200 MG TABLET PO SCH (08:18)
[2021-01-28] MEDS: APIXABAN 5 MG TABLET PO SCH ×2 (08:18→21:10)
[2021-01-28] MEDS: PANTOPRAZOLE 40MG TABLET PO SCH (08:18)
[2021-01-28] MEDS: LINEZOLID 600 MG TABLET PO SCH ×2 (08:18→21:10)
[2021-01-28] MEDS: SENNA/DOCUSATE TABLET PO SCH (08:18)
[2021-01-28] MEDS: OXYcodone IR 5MG TABLET PO PRN ×2 (08:19→17:06)
[2021-01-28] MEDS: GABAPENTIN 300 MG CAPSULE PO SCH ×2 (08:19→21:10)
[2021-01-28] MEDS ORDERED: ESCITALOPRAM 10MG TABLET PO SCH (09:00)
[2021-01-28] MEDS: SODIUM CHLORIDE 0.9% 1,000 ML IV SCH ×2 (09:38→17:00)
[2021-01-28 13:29] VITALS: BP 120/67
[2021-01-28] MEDS: MEROPENEM 1 GM in SODIUM CHLORIDE 0.9% 100 ML IV SCH (17:06)
[2021-01-28 19:39] VITALS: BP 124/69
[2021-01-28] MEDS: ATORVASTATIN 40 MG TABLET PO SCH (21:10)
[2021-01-29 02:00] VITALS: BP 110/75
[2021-01-29] MEDS: SODIUM CHLORIDE 0.9% 1,000 ML IV SCH (03:00)
[2021-01-29] MEDS: MEROPENEM 1 GM in SODIUM CHLORIDE 0.9% 100 ML IV SCH ×2 (04:06→15:55)
[2021-01-29] MEDS: LEVOTHYROXINE 75 MCG TABLET PO SCH (06:05)
[2021-01-29 06:08] LABS: ANION GAP 7 mmol/L (5-15); CHLORIDE 103 mmol/L (98-107)
[2021-01-29 06:09] LABS: CREATININE 2.65 mg/dL (0.7-1.3)
[2021-01-29 06:58] VITALS: BP 108/60
[2021-01-29] MEDS: INSULIN LISPRO 100 UNITS/ML, PEN SQ-INSULIN SCH ×4 (07:00→21:00)
[2021-01-29] MEDS: LINEZOLID 600 MG TABLET PO SCH ×2 (08:48→21:14)
[2021-01-29] MEDS: GABAPENTIN 300 MG CAPSULE PO SCH ×2 (08:48→21:14)
[2021-01-29] MEDS: APIXABAN 5 MG TABLET PO SCH ×2 (08:48→21:14)
[2021-01-29] MEDS: PANTOPRAZOLE 40MG TABLET PO SCH (08:48)
[2021-01-29] MEDS: FLUCONAZOLE 200 MG TABLET PO SCH (08:48)
[2021-01-29] MEDS: SENNA/DOCUSATE TABLET PO SCH (08:48)
[2021-01-29] MEDS: OXYcodone IR 5MG TABLET PO PRN ×2 (09:36→21:24)
[2021-01-29] MEDS: INSULIN HUMULIN 70/30, 3ML PEN SQ-INSULIN SCH ×2 (09:36→21:00)
[2021-01-29 12:32] VITALS: BP 116/66
[2021-01-29 20:00] VITALS: BP 103/61
[2021-01-29] MEDS: ATORVASTATIN 40 MG TABLET PO SCH (21:13)
[2021-01-30 02:33] VITALS: BP 93/55
[2021-01-30] MEDS: LEVOTHYROXINE 75 MCG TABLET PO SCH (05:01)
[2021-01-30] MEDS: MEROPENEM 1 GM in SODIUM CHLORIDE 0.9% 100 ML IV SCH ×2 (05:01→16:35)
[2021-01-30] MEDS: OXYcodone IR 5MG TABLET PO PRN ×3 (05:02→22:15)
[2021-01-30] MEDS: INSULIN LISPRO 100 UNITS/ML, PEN SQ-INSULIN SCH ×4 (07:00→21:00)
[2021-01-30 07:03] VITALS: BP 106/68
[2021-01-30] MEDS: SENNA/DOCUSATE TABLET PO SCH (09:00)
[2021-01-30] MEDS: LINEZOLID 600 MG TABLET PO SCH ×2 (09:28→21:59)
[2021-01-30] MEDS: GABAPENTIN 300 MG CAPSULE PO SCH ×2 (09:28→21:59)
[2021-01-30] MEDS: APIXABAN 5 MG TABLET PO SCH ×2 (09:29→21:59)
[2021-01-30] MEDS: PANTOPRAZOLE 40MG TABLET PO SCH (09:29)
[2021-01-30] MEDS: FLUCONAZOLE 200 MG TABLET PO SCH (09:29)
[2021-01-30] MEDS: INSULIN HUMULIN 70/30, 3ML PEN SQ-INSULIN SCH ×2 (09:29→22:02)
[2021-01-30 10:22] LABS: ANION GAP 2 mmol/L (5-15); CALCIUM 8.4 mg/dL (8.5-10.1); CHLORIDE 106 mmol/L (98-107); CREATININE 2.36 mg/dL (0.7-1.3)
[2021-01-30 11:28] LABS: BASOPHILS % (AUTO) 0 % (0-1); EOSINOPHILS % (AUTO) 4 % (1-7); LYMPHOCYTES % (AUTO) 17 % (22-44); MEAN CORPUSCULAR HEMOGLOBIN 29.1 pg (27.5-34.5); MEAN CORPUSCULAR HGB CONC 32.7 g/dL (33.2-36.2); MEAN PLATELET VOLUME 7.1 fL (7.4-10.4); MONOCYTES % (AUTO) 8 % (2-9); NEUTROPHILS % (AUTO) 72 % (42-75); PLATELET COUNT 270 x10^3/uL (130-400); RED BLOOD COUNT 3.46 x10^6/uL (4.38-5.82); RED CELL DISTRIBUTION WIDTH 17.2 % (9.4-14.8)
[2021-01-30 11:33] LABS: MD NO
[2021-01-30 12:24] VITALS: BP 124/77
[2021-01-30 19:55] VITALS: BP 108/71
[2021-01-30] MEDS: ATORVASTATIN 40 MG TABLET PO SCH (21:59)
[2021-01-31 02:40] VITALS: BP 106/72
[2021-01-31] MEDS: MEROPENEM 1 GM in SODIUM CHLORIDE 0.9% 100 ML IV SCH ×2 (04:30→16:40)
[2021-01-31 05:03] LABS: ANION GAP 6 mmol/L (5-15); CALCIUM 8.1 mg/dL (8.5-10.1); CHLORIDE 106 mmol/L (98-107); CREATININE 2.21 mg/dL (0.7-1.3)
[2021-01-31] MEDS: LEVOTHYROXINE 75 MCG TABLET PO SCH (05:32)
[2021-01-31] MEDS: INSULIN LISPRO 100 UNITS/ML, PEN SQ-INSULIN SCH ×4 (07:00→21:00)
[2021-01-31 09:00] VITALS: BP 104/48
[2021-01-31] MEDS: APIXABAN 5 MG TABLET PO SCH ×2 (09:11→20:55)
[2021-01-31] MEDS: LINEZOLID 600 MG TABLET PO SCH ×2 (09:11→20:55)
[2021-01-31] MEDS: SENNA/DOCUSATE TABLET PO SCH (09:11)
[2021-01-31] MEDS: GABAPENTIN 300 MG CAPSULE PO SCH ×2 (09:11→20:55)
[2021-01-31] MEDS: PANTOPRAZOLE 40MG TABLET PO SCH (09:11)
[2021-01-31] MEDS: INSULIN HUMULIN 70/30, 3ML PEN SQ-INSULIN SCH ×2 (09:12→21:00)
[2021-01-31] MEDS: FLUCONAZOLE 200 MG TABLET PO SCH (09:12)
[2021-01-31 14:26] VITALS: BP 106/68
[2021-01-31 19:19] VITALS: BP 117/77
[2021-01-31] MEDS: ATORVASTATIN 40 MG TABLET PO SCH (20:55)
[2021-02-01 00:32] VITALS: BP 107/67
[2021-02-01] MEDS: MEROPENEM 1 GM in SODIUM CHLORIDE 0.9% 100 ML IV SCH ×2 (04:31→16:36)
[2021-02-01] MEDS: LEVOTHYROXINE 75 MCG TABLET PO SCH (04:32)
[2021-02-01 05:48] LABS: ANION GAP 6 mmol/L (5-15); CALCIUM 8.4 mg/dL (8.5-10.1); CHLORIDE 109 mmol/L (98-107); CREATININE 2.29 mg/dL (0.7-1.3)
[2021-02-01] MEDS ORDERED: SODIUM ZIRCONIUM CYCLOSILICATE 10 GM PO ONE (06:30)
[2021-02-01] MEDS: INSULIN LISPRO 100 UNITS/ML, PEN SQ-INSULIN SCH ×4 (07:00→20:58)
[2021-02-01 07:21] VITALS: BP 112/73
[2021-02-01] MEDS: FLUCONAZOLE 200 MG TABLET PO SCH (10:07)
[2021-02-01] MEDS: GABAPENTIN 300 MG CAPSULE PO SCH ×2 (10:07→20:56)
[2021-02-01] MEDS: APIXABAN 5 MG TABLET PO SCH ×2 (10:07→20:54)
[2021-02-01] MEDS: PANTOPRAZOLE 40MG TABLET PO SCH (10:07)
[2021-02-01] MEDS: SENNA/DOCUSATE TABLET PO SCH (10:08)
[2021-02-01] MEDS: LINEZOLID 600 MG TABLET PO SCH ×2 (10:08→20:56)
[2021-02-01] MEDS: INSULIN HUMULIN 70/30, 3ML PEN SQ-INSULIN SCH ×2 (10:18→20:59)
[2021-02-01] MEDS: OXYcodone IR 5MG TABLET PO PRN ×3 (10:19→20:56)
[2021-02-01 14:00] VITALS: BP 111/70
[2021-02-01 19:29] VITALS: BP 127/82
[2021-02-01] MEDS: ATORVASTATIN 40 MG TABLET PO SCH (20:54)
[2021-02-02 01:18] VITALS: BP 107/69
[2021-02-02] MEDS: MEROPENEM 1 GM in SODIUM CHLORIDE 0.9% 100 ML IV SCH (04:35)
[2021-02-02] MEDS: OXYcodone IR 5MG TABLET PO PRN ×2 (04:59→21:44)
[2021-02-02 05:00] LABS: ANION GAP 7 mmol/L (5-15); CALCIUM 8.6 mg/dL (8.5-10.1); CHLORIDE 110 mmol/L (98-107)
[2021-02-02] MEDS: LEVOTHYROXINE 75 MCG TABLET PO SCH (05:00)
[2021-02-02 05:03] LABS: CREATININE 2.11 mg/dL (0.7-1.3)
[2021-02-02] MEDS ORDERED: SODIUM ZIRCONIUM CYCLOSILICATE 10 GM PO ONE (06:30)
[2021-02-02] MEDS: PANTOPRAZOLE 40MG TABLET PO SCH (06:38)
[2021-02-02] MEDS: INSULIN LISPRO 100 UNITS/ML, PEN SQ-INSULIN SCH ×4 (07:22→21:37)
[2021-02-02 08:09] VITALS: BP 110/71
[2021-02-02] MEDS: SENNA/DOCUSATE TABLET PO SCH (10:14)
[2021-02-02] MEDS: APIXABAN 5 MG TABLET PO SCH ×2 (10:14→21:43)
[2021-02-02] MEDS: GABAPENTIN 300 MG CAPSULE PO SCH ×2 (10:14→21:44)
[2021-02-02] MEDS: INSULIN HUMULIN 70/30, 3ML PEN SQ-INSULIN SCH ×2 (11:08→21:46)
[2021-02-02 14:05] VITALS: BP 114/75
[2021-02-02 19:32] VITALS: BP 125/81
[2021-02-02] MEDS: ATORVASTATIN 40 MG TABLET PO SCH (21:44)
[2021-02-03 02:30] VITALS: BP 111/72
[2021-02-03] MEDS: OXYcodone IR 5MG TABLET PO PRN ×3 (04:56→21:00)
[2021-02-03] MEDS: LEVOTHYROXINE 75 MCG TABLET PO SCH (04:57)
[2021-02-03 05:56] LABS: CHLORIDE 111 mmol/L (98-107)
[2021-02-03 05:57] LABS: ANION GAP 5 mmol/L (5-15); CALCIUM 8.8 mg/dL (8.5-10.1)
[2021-02-03] MEDS: PANTOPRAZOLE 40MG TABLET PO SCH (05:59)
[2021-02-03] MEDS: INSULIN LISPRO 100 UNITS/ML, PEN SQ-INSULIN SCH ×4 (06:43→20:54)
[2021-02-03 06:51] VITALS: BP 93/66
[2021-02-03] MEDS: SENNA/DOCUSATE TABLET PO SCH (08:45)
[2021-02-03] MEDS: GABAPENTIN 300 MG CAPSULE PO SCH ×2 (08:45→20:58)
[2021-02-03] MEDS: APIXABAN 5 MG TABLET PO SCH ×2 (08:45→20:57)
[2021-02-03] MEDS: SODIUM ZIRCONIUM CYCLOSILICATE 10 GM PO SCH ×2 (08:46→23:06)
[2021-02-03] MEDS: INSULIN HUMULIN 70/30, 3ML PEN SQ-INSULIN SCH ×2 (08:52→20:59)
[2021-02-03] MEDS: CEFAZOLIN PMX 1GM/50ML 50 ML IV SCH ×2 (08:52→16:33)
[2021-02-03] MEDS ORDERED: COSYNTROPIN 0.25 MG IV ONE (11:30)
[2021-02-03 13:28] VITALS: BP 109/72
[2021-02-03 19:59] VITALS: BP 93/65
[2021-02-03] MEDS: ATORVASTATIN 40 MG TABLET PO SCH (20:58)
[2021-02-04] MEDS: CEFAZOLIN PMX 1GM/50ML 50 ML IV SCH ×3 (01:09→16:55)
[2021-02-04 01:15] VITALS: BP 107/66
[2021-02-04] MEDS: LEVOTHYROXINE 75 MCG TABLET PO SCH (05:19)
[2021-02-04] MEDS: INSULIN LISPRO 100 UNITS/ML, PEN SQ-INSULIN SCH ×4 (07:00→20:54)
[2021-02-04 07:15] VITALS: BP 110/75
[2021-02-04 08:30] LABS: BASOPHILS % (AUTO) 1 % (0-1); EOSINOPHILS % (AUTO) 8 % (1-7); LYMPHOCYTES % (AUTO) 17 % (22-44); MEAN CORPUSCULAR HEMOGLOBIN 28.8 pg (27.5-34.5); MEAN CORPUSCULAR HGB CONC 32.5 g/dL (33.2-36.2); MEAN PLATELET VOLUME 6.8 fL (7.4-10.4); MONOCYTES % (AUTO) 6 % (2-9); NEUTROPHILS % (AUTO) 68 % (42-75); PLATELET COUNT 219 x10^3/uL (130-400); RED BLOOD COUNT 3.65 x10^6/uL (4.38-5.82); RED CELL DISTRIBUTION WIDTH 16.5 % (9.4-14.8)
[2021-02-04 08:31] LABS: MD NO
[2021-02-04 08:40] LABS: ANION GAP 6 mmol/L (5-15); CALCIUM 8.5 mg/dL (8.5-10.1); CHLORIDE 112 mmol/L (98-107); CREATININE 2.23 mg/dL (0.7-1.3)
[2021-02-04] MEDS: INSULIN HUMULIN 70/30, 3ML PEN SQ-INSULIN SCH ×2 (09:00→20:51)
[2021-02-04] MEDS: PANTOPRAZOLE 40MG TABLET PO SCH (09:00)
[2021-02-04] MEDS: APIXABAN 5 MG TABLET PO SCH ×2 (09:00→20:49)
[2021-02-04] MEDS: GABAPENTIN 300 MG CAPSULE PO SCH ×2 (09:00→20:52)
[2021-02-04] MEDS: SENNA/DOCUSATE TABLET PO SCH (09:24)
[2021-02-04] MEDS: SODIUM ZIRCONIUM CYCLOSILICATE 10 GM PO SCH ×2 (11:01→23:09)
[2021-02-04] MEDS: SODIUM BICARBONATE 650 MG TABLET PO SCH ×2 (11:01→20:49)
[2021-02-04 14:26] VITALS: BP 109/74
[2021-02-04] MEDS: ATORVASTATIN 40 MG TABLET PO SCH (20:49)
[2021-02-04] MEDS: OXYcodone IR 5MG TABLET PO PRN (21:08)
[2021-02-04 21:37] VITALS: BP 112/73
[2021-02-04 23:59] VITALS: BP 117/77
[2021-02-05] MEDS: CEFAZOLIN PMX 1GM/50ML 50 ML IV SCH ×4 (01:27→23:18)
[2021-02-05] MEDS: LEVOTHYROXINE 75 MCG TABLET PO SCH (05:53)
[2021-02-05 05:59] LABS: ANION GAP 7 mmol/L (5-15); CALCIUM 8.7 mg/dL (8.5-10.1); CHLORIDE 113 mmol/L (98-107); CREATININE 2.07 mg/dL (0.7-1.3)
[2021-02-05] MEDS: INSULIN LISPRO 100 UNITS/ML, PEN SQ-INSULIN SCH ×4 (07:00→20:15)
[2021-02-05] MEDS ORDERED: COSYNTROPIN 0.25 MG IV ONE (08:05)
[2021-02-05] MEDS: INSULIN HUMULIN 70/30, 3ML PEN SQ-INSULIN SCH ×2 (08:17→20:06)
[2021-02-05] MEDS: APIXABAN 5 MG TABLET PO SCH ×2 (08:22→20:05)
[2021-02-05] MEDS: SENNA/DOCUSATE TABLET PO SCH (08:22)
[2021-02-05] MEDS: GABAPENTIN 300 MG CAPSULE PO SCH ×2 (08:22→20:05)
[2021-02-05] MEDS: PANTOPRAZOLE 40MG TABLET PO SCH (08:22)
[2021-02-05 08:53] VITALS: BP 122/80
[2021-02-05] MEDS: SODIUM ZIRCONIUM CYCLOSILICATE 10 GM PO SCH ×3 (10:31→21:53)
[2021-02-05] MEDS: SODIUM BICARBONATE 650 MG TABLET PO SCH ×2 (12:32→20:05)
[2021-02-05] MEDS: OXYcodone IR 5MG TABLET PO PRN (12:33)
[2021-02-05 14:10] VITALS: BP 112/70
[2021-02-05] MEDS: ATORVASTATIN 40 MG TABLET PO SCH (20:05)
[2021-02-05 20:38] VITALS: BP 107/71
[2021-02-06 02:12] VITALS: BP 97/63
[2021-02-06] MEDS: LEVOTHYROXINE 75 MCG TABLET PO SCH (06:23)
[2021-02-06 06:57] VITALS: BP 127/81
[2021-02-06] MEDS: INSULIN LISPRO 100 UNITS/ML, PEN SQ-INSULIN SCH ×3 (07:00→15:41)
[2021-02-06] MEDS: PANTOPRAZOLE 40MG TABLET PO SCH (08:16)
[2021-02-06] MEDS: CEFAZOLIN PMX 1GM/50ML 50 ML IV SCH ×2 (08:17→15:30)
[2021-02-06] MEDS: SODIUM BICARBONATE 650 MG TABLET PO SCH (08:17)
[2021-02-06] MEDS: APIXABAN 5 MG TABLET PO SCH (08:17)
[2021-02-06] MEDS: GABAPENTIN 300 MG CAPSULE PO SCH (08:18)
[2021-02-06] MEDS: OXYcodone IR 5MG TABLET PO PRN (08:22)
[2021-02-06] MEDS: SENNA/DOCUSATE TABLET PO SCH (08:22)
[2021-02-06] MEDS: MIDODRINE 5 MG TABLET PO SCH ×2 (08:22→15:37)
[2021-02-06 08:38] LABS: BASOPHILS % (AUTO) 1 % (0-1); EOSINOPHILS % (AUTO) 9 % (1-7); LYMPHOCYTES % (AUTO) 17 % (22-44); MEAN CORPUSCULAR HEMOGLOBIN 28.7 pg (27.5-34.5); MEAN CORPUSCULAR HGB CONC 32.4 g/dL (33.2-36.2); MEAN PLATELET VOLUME 6.8 fL (7.4-10.4); MONOCYTES % (AUTO) 7 % (2-9); NEUTROPHILS % (AUTO) 67 % (42-75); PLATELET COUNT 192 x10^3/uL (130-400); RED BLOOD COUNT 3.68 x10^6/uL (4.38-5.82); RED CELL DISTRIBUTION WIDTH 16.6 % (9.4-14.8)
[2021-02-06 08:48] LABS: ANION GAP 7 mmol/L (5-15); CALCIUM 8.6 mg/dL (8.5-10.1); CHLORIDE 114 mmol/L (98-107); CREATININE 2.15 mg/dL (0.7-1.3)
[2021-02-06 08:54] LABS: MD NO
[2021-02-06] MEDS: INSULIN HUMULIN 70/30, 3ML PEN SQ-INSULIN SCH (09:07)
[2021-02-06] MEDS ORDERED: SODI10PO PO (09:23)
[2021-02-06] MEDS ORDERED: DOXY100T PO (10:22)
[2021-02-06] MEDS: SODIUM ZIRCONIUM CYCLOSILICATE 10 GM PO SCH (10:44)
[2021-02-06 13:01] VITALS: BP 121/75
== END 2021-02-06 17:05 | DRG 682 ==
LOC: ED 14:19 → EDIP 14:53 → 5SO 20:03
PROVIDERS: ADMIT Internal Medicine; ATTEND Internal Medicine
PROC: 5A2204Z Restoration of Cardiac Rhythm, Single (ICD-10-PCS; principal; 2021-01-26)
PROC: 0T9B70Z Drainage of Bladder with Drainage Device, Via Natural or Artificial Opening (ICD-10-PCS; 2021-01-26)
PROC: 02HV33Z Insertion of Infusion Device into Superior Vena Cava, Percutaneous Approach (ICD-10-PCS; 2021-01-26)
PROC: B548ZZA Ultrasonography of Superior Vena Cava, Guidance (ICD-10-PCS; 2021-01-26)
DX: N17.0 Acute kidney failure with tubular necrosis (principal); J96.00 Acute respiratory failure, unspecified whether with hypoxia or hypercapnia; B37.49 Other urogenital candidiasis; Z68.43 Body mass index [BMI] 50.0-59.9, adult; E87.2 Acidosis; E87.1 Hypo-osmolality and hyponatremia; I13.0 Hypertensive heart and chronic kidney disease with heart failure and stage 1 through stage 4 chronic kidney disease, or unspecified chronic kidney disease; I47.2 Ventricular tachycardia; I48.92 Unspecified atrial flutter; Z16.24 Resistance to multiple antibiotics; L03.311 Cellulitis of abdominal wall; D63.8 Anemia in other chronic diseases classified elsewhere; E03.9 Hypothyroidism, unspecified; E11.22 Type 2 diabetes mellitus with diabetic chronic kidney disease; E11.42 Type 2 diabetes mellitus with diabetic polyneuropathy; E66.01 Morbid (severe) obesity due to excess calories; E87.5 Hyperkalemia; Z88.8 Allergy status to other drugs, medicaments and biological substances; Z91.018 Allergy to other foods; I50.9 Heart failure, unspecified; I48.0 Paroxysmal atrial fibrillation; G89.29 Other chronic pain; M54.9 Dorsalgia, unspecified; N18.32 Chronic kidney disease, stage 3b; Z87.440 Personal history of urinary (tract) infections; Z79.4 Long term (current) use of insulin; Z66 Do not resuscitate; F41.9 Anxiety disorder, unspecified; Z79.01 Long term (current) use of anticoagulants; Z90.49 Acquired absence of other specified parts of digestive tract
CPT/HCPCS: 36415; 71045; 80047; 80048; 80053; 81001; 82533; 82962; 83605; 83735; 84132; 84145; 84443; 85025; 86705; 86706; 87040; 87086; 87106; 87340; 90935; 93005; 99291; 99292; G0378; J0690; J0696; J1815; J2020; J2185; J2405; J3010; J7060; J7070; J0282; J0834; J3475; J7030; J7040

== ENCOUNTER 2021-05-25 15:17 | Inpatient (IN) | payer MEDICAID ==
[~2021-05-25] VITALS: Ht 195.6 cm; Wt 170.5 kg
[~2021-05-25 15:17] MED LIST changes: +DOXY100T PO; -HYDR-1067 PO; +HYDR-2214 PO; +SODI10PO PO; +SULF-23 PO; -SULF1TAB24 PO
--- NOTE | 2021-05-25 15:25 | NUR ---
pt BIB [facility] from [facility] c/o diffuse abd. pain with N/V and decreased PO intake since yesterday. pt reports that he has had a couple of episodes of vomiting today and is concerned that he has decreased output in his ileostomy. no vomiting upon admit. pt reports that he has been at a SNF for months and was hospitalized for 3 months pior to that. no family at bedside
--- NOTE | 2021-05-25 15:50 | NUR ---
Carlin RINCON at bedside for eval
[2021-05-25] MEDS ORDERED: SODIUM CHLORIDE FLUSH 10ML SYR IVF ONE (16:00)
[2021-05-25] MEDS ORDERED: SODIUM CHLORIDE 0.9% 1,000ML IVBOLUS ONE (16:00)
[2021-05-25] MEDS ORDERED: FAMOTIDINE 20 MG/2 ML IVPush ONE (16:00)
[2021-05-25] MEDS ORDERED: ONDANSETRON 2MG/ML, 2ML IVPush ONE (16:00)
[2021-05-25] MEDS ORDERED: FAMOTIDINE 20 MG/2 ML ONE (16:05)
[2021-05-25] MEDS ORDERED: ONDANSETRON 2MG/ML, 2ML ONE (16:05)
--- NOTE | 2021-05-25 16:15 | NUR ---
pt has been medicated per order. positioning and lihts dimmed for comfort. oral swabs have been povided per request. pt requesting PO water, advised of NPO satus at this time
[2021-05-25 16:26] LABS: BASOPHILS % (AUTO) 0 % (0-1); EOSINOPHILS % (AUTO) 2 % (1-7); LYMPHOCYTES % (AUTO) 9 % (22-44); MEAN CORPUSCULAR HEMOGLOBIN 30.6 pg (27.5-34.5); MEAN CORPUSCULAR HGB CONC 33.2 g/dL (33.2-36.2); MEAN PLATELET VOLUME 7.6 fL (7.4-10.4); MONOCYTES % (AUTO) 5 % (2-9); NEUTROPHILS % (AUTO) 84 % (42-75); PLATELET COUNT 281 x10^3/uL (130-400); RED BLOOD COUNT 4.32 x10^6/uL (4.38-5.82); RED CELL DISTRIBUTION WIDTH 14.9 % (9.4-14.8)
[2021-05-25 16:30] LABS: ALBUMIN 3.2 g/dL (3.4-5.0); ANION GAP 6 mmol/L (5-15); CALCIUM 9.1 mg/dL (8.5-10.1); CHLORIDE 115 mmol/L (98-107)
--- NOTE | 2021-05-25 16:30 | NUR ---
pt aware that urien sample needed. urinal at bedside
[2021-05-25 16:34] LABS: ALANINE AMINOTRANSFERASE 39 U/L (12-78); ALKALINE PHOSPHATASE 153 U/L (45-117); BILIRUBIN,TOTAL 0.4 mg/dL (0.2-1.0); CREATININE 2.54 mg/dL (0.7-1.3); TOTAL PROTEIN 8.7 g/dL (6.4-8.2)
--- NOTE | 2021-05-25 16:40 | NUR ---
TASK RN: PT DESAT TO 80% WHILE SLEEPING. PT STATES THAT HE WEARS 2.5L NC BASELINE. PT PLACED ON 2.5L W/ DESIRED EFFECT. RESP EVEN AND UNLABORED, VARINDER.
--- NOTE | 2021-05-25 17:00 | NUR ---
pt reports that he is still having abd pain and nausea after meds. no vomtiing noted. pt to have CT scan
--- NOTE | 2021-05-25 18:17 | NUR ---
pt positioning for comfort. pt has not been able to provide urine sample yet. pt states that he only urinates a couple of times per day at his baseline. requesting PO fluids. pt reminded of NPO status at this time. chart up for recheck
--- NOTE | 2021-05-25 18:56 | NUR ---
received report from CAMILLE Nieves
--- NOTE | 2021-05-25 18:56 | NUR ---
Dr Zimmerman has been to bedside for recheck. pt to be admitted. report to Kerry OBRIEN
[2021-05-25] MEDS ORDERED: CALCIUM CHLORIDE 10%, 10ML SYR IVPush ONE (19:00)
[2021-05-25] MEDS ORDERED: INSULIN REGULAR 100 UNITS/ML, 3ML VIAL IVPush ONE (19:00)
[2021-05-25] MEDS ORDERED: DEXTROSE 50%, 50ML SYRINGE IVPush ONE (19:00)
[2021-05-25] MEDS ORDERED: MAGN400O7 PO (19:09)
[2021-05-25] MEDS ORDERED: TRAZ50TA66 PO (19:09)
[2021-05-25] MEDS ORDERED: INSU100V5 SQ-INSULIN (19:09)
[2021-05-25] MEDS ORDERED: CARV12.52 PO (19:09)
[2021-05-25] MEDS ORDERED: SIME80TA16 PO (19:09)
[2021-05-25] MEDS ORDERED: APIX5TAB PO (19:09)
[2021-05-25] MEDS ORDERED: DEXTROSE 50%, 50ML SYRINGE ONE (19:14)
[2021-05-25] MEDS ORDERED: CALCIUM CHLORIDE 10%, 10ML SYR ONE (19:14)
[2021-05-25] MEDS ORDERED: INSULIN SINGLE DOSE, ER ONE (19:15)
[2021-05-25] MEDS ORDERED: INSULIN LISPRO 100 UNITS/ML, PEN ONE (19:27)
--- NOTE | 2021-05-25 19:30 | NUR ---
med req done, meds given. pt resting on gurney, denies needs at this time.
[2021-05-25] MEDS ORDERED: SIMETHICONE 80 MG CHEW TAB PO PRN (20:00)
[2021-05-25] MEDS ORDERED: GUAIFENESIN/DM 200-20MG, 10ML UDC PO PRN (20:00)
[2021-05-25] MEDS ORDERED: DOCUSATE 100 MG CAPSULE PO PRN (20:00)
[2021-05-25] MEDS ORDERED: CYCLOBENZAPRINE 10 MG TABLET PO PRN (20:00)
[2021-05-25] MEDS ORDERED: MAGNESIUM HYDROXIDE 8%, 30ML UDC PO PRN (20:00)
[2021-05-25] MEDS ORDERED: hydrALAzine 20 MG/ML, 1ML IVPush PRN (20:00)
[2021-05-25] MEDS ORDERED: TRAZODONE 50MG TABLET PO PRN (20:00)
[2021-05-25] MEDS ORDERED: ONDANSETRON 2MG/ML, 2ML IVPush PRN (20:00)
[2021-05-25] MEDS ORDERED: morphine SULFATE 10 MG/ML, 1ML IVPush PRN (20:00)
[2021-05-25] MEDS ORDERED: NITROGLYCERIN SINGLE TAB 0.4 MG SL PRN (20:00)
[2021-05-25] MEDS ORDERED: HYDROmorphone 1 MG/ML, 1ML INJ ONE (20:07)
--- NOTE | 2021-05-25 20:10 | NUR ---
pain meds given before transport to the floor
--- NOTE | 2021-05-25 20:11 | NUR ---
Pt to be admitted to Neuro Tele, room 486-2. Report called to CAMILLE Culp.
[2021-05-25] MEDS ORDERED: ONDANSETRON 4 MG TABLET PO PRN (20:30)
[2021-05-25] MEDS ORDERED: HYDROmorphone 1 MG/ML, 1ML INJ IV ONE (20:30)
[2021-05-25 20:31] VITALS: BP 106/72
[2021-05-25] MEDS: INSULIN REGULAR 100 UNITS/ML, 3ML VIAL SQ-INSULIN SCH (21:00)
[2021-05-25] MEDS ORDERED: ALBUTEROL SULFATE 2.5 MG/3 ML NPPB SCH (21:00)
[2021-05-25] MEDS: GABAPENTIN 300 MG CAPSULE PO SCH (22:37)
[2021-05-25] MEDS: ATORVASTATIN 40 MG TABLET PO SCH (22:37)
[2021-05-25] MEDS: CARVEDILOL 12.5 MG TABLET PO SCH (22:37)
[2021-05-25] MEDS: MIDODRINE 5 MG TABLET PO SCH (22:37)
[2021-05-25] MEDS: SODIUM BICARBONATE 650 MG TABLET PO SCH (22:37)
[2021-05-25] MEDS: APIXABAN 5 MG TABLET PO SCH (22:37)
[2021-05-26 02:00] VITALS: BP 110/73
[2021-05-26] MEDS: LEVOTHYROXINE 75 MCG TABLET PO SCH (05:18)
[2021-05-26 05:38] LABS: BASOPHILS % (AUTO) 0 % (0-1); EOSINOPHILS % (AUTO) 3 % (1-7); LYMPHOCYTES % (AUTO) 15 % (22-44); MEAN CORPUSCULAR HEMOGLOBIN 30.6 pg (27.5-34.5); MEAN CORPUSCULAR HGB CONC 32.6 g/dL (33.2-36.2); MEAN PLATELET VOLUME 7.4 fL (7.4-10.4); MONOCYTES % (AUTO) 7 % (2-9); NEUTROPHILS % (AUTO) 75 % (42-75); PLATELET COUNT 260 x10^3/uL (130-400); RED BLOOD COUNT 4.06 x10^6/uL (4.38-5.82); RED CELL DISTRIBUTION WIDTH 14.8 % (9.4-14.8)
[2021-05-26 05:42] LABS: ANION GAP 3 mmol/L (5-15); CALCIUM 8.9 mg/dL (8.5-10.1); CHLORIDE 117 mmol/L (98-107)
[2021-05-26 05:45] LABS: CREATININE 2.79 mg/dL (0.7-1.3)
[2021-05-26 06:21] LABS: MICROSCOPIC INDICATED
[2021-05-26 06:48] VITALS: BP 117/74
[2021-05-26] MEDS: INSULIN REGULAR 100 UNITS/ML, 3ML VIAL SQ-INSULIN SCH ×4 (07:00→21:00)
[2021-05-26] MEDS: INSULIN HUMULIN 70/30, 3ML PEN SQ-INSULIN SCH ×3 (07:00→17:20)
[2021-05-26] MEDS ORDERED: INSULIN HUMULIN 70/30, 3ML PEN SQ-INSULIN SCH (07:00)
[2021-05-26] MEDS ORDERED: SODIUM POLY SULFONATE UDC 15 GM/60 ML PO ONE (07:00)
[2021-05-26] MEDS: OXYcodone IR 5MG TABLET PO PRN ×4 (07:00→21:59)
[2021-05-26] MEDS ORDERED: ALBUTEROL SULFATE 2.5 MG/3 ML NPPB SCH (07:00)
[2021-05-26] MEDS: SODIUM BICARBONATE 650 MG TABLET PO SCH ×2 (08:34→21:58)
[2021-05-26] MEDS: APIXABAN 5 MG TABLET PO SCH ×2 (08:34→21:59)
[2021-05-26] MEDS: GABAPENTIN 300 MG CAPSULE PO SCH ×2 (08:34→21:58)
[2021-05-26] MEDS: ESCITALOPRAM 10MG TABLET PO SCH (08:34)
[2021-05-26] MEDS: CARVEDILOL 12.5 MG TABLET PO SCH ×3 (08:35→21:58)
[2021-05-26] MEDS: MIDODRINE 5 MG TABLET PO SCH ×3 (08:35→21:58)
[2021-05-26] MEDS ORDERED: MAALOX/HYOSCYAMINE/LIDOCAINE 45 ML BTL PO PRN (10:30)
[2021-05-26 13:00] VITALS: BP 111/75
[2021-05-26] MEDS: SODIUM CHLORIDE 0.45% 1,000 ML IV SCH ×2 (13:16→23:46)
[2021-05-26] MEDS: CEFTRIAXONE 1,000 MG in DEXTROSE 5% 50 ML IVPB SCH (13:16)
[2021-05-26] MEDS ORDERED: CEFTRIAXONE 1,000 MG in DEXTROSE 5% 50 ML IVPB SCH (14:30)
[2021-05-26] MEDS: SODIUM ZIRCONIUM CYCLOSILICATE 10 GM PO SCH ×3 (14:57→23:46)
[2021-05-26 20:41] VITALS: BP 120/76
[2021-05-26] MEDS: ATORVASTATIN 40 MG TABLET PO SCH (21:58)
[2021-05-27 01:08] VITALS: BP 106/67
[2021-05-27] MEDS: LEVOTHYROXINE 75 MCG TABLET PO SCH (05:53)
[2021-05-27] MEDS: OXYcodone IR 5MG TABLET PO PRN ×4 (05:57→21:16)
[2021-05-27] MEDS: INSULIN REGULAR 100 UNITS/ML, 3ML VIAL SQ-INSULIN SCH ×4 (07:00→21:00)
[2021-05-27 07:23] VITALS: BP 108/61
[2021-05-27] MEDS: SODIUM BICARBONATE 650 MG TABLET PO SCH ×2 (08:24→21:17)
[2021-05-27] MEDS: APIXABAN 5 MG TABLET PO SCH ×2 (08:24→21:17)
[2021-05-27] MEDS: ESCITALOPRAM 10MG TABLET PO SCH (08:24)
[2021-05-27] MEDS: CARVEDILOL 12.5 MG TABLET PO SCH ×3 (08:24→21:17)
[2021-05-27] MEDS: GABAPENTIN 300 MG CAPSULE PO SCH ×2 (08:24→21:18)
[2021-05-27] MEDS: MIDODRINE 5 MG TABLET PO SCH ×3 (08:24→21:17)
[2021-05-27] MEDS: INSULIN HUMULIN 70/30, 3ML PEN SQ-INSULIN SCH ×3 (08:25→16:35)
[2021-05-27 08:40] LABS: BASOPHILS % (AUTO) 1 % (0-1); EOSINOPHILS % (AUTO) 5 % (1-7); LYMPHOCYTES % (AUTO) 16 % (22-44); MEAN CORPUSCULAR HEMOGLOBIN 30.3 pg (27.5-34.5); MEAN CORPUSCULAR HGB CONC 32.9 g/dL (33.2-36.2); MEAN PLATELET VOLUME 7.6 fL (7.4-10.4); MONOCYTES % (AUTO) 7 % (2-9); NEUTROPHILS % (AUTO) 72 % (42-75); PLATELET COUNT 245 x10^3/uL (130-400); RED CELL DISTRIBUTION WIDTH 14.7 % (9.4-14.8)
[2021-05-27 08:48] LABS: ALBUMIN 2.9 g/dL (3.4-5.0); ANION GAP 6 mmol/L (5-15); CALCIUM 8.3 mg/dL (8.5-10.1); CHLORIDE 111 mmol/L (98-107)
[2021-05-27 08:52] LABS: ALANINE AMINOTRANSFERASE 27 U/L (12-78); ALKALINE PHOSPHATASE 122 U/L (45-117); BILIRUBIN,TOTAL 0.4 mg/dL (0.2-1.0); CREATININE 3.14 mg/dL (0.7-1.3); TOTAL PROTEIN 8.1 g/dL (6.4-8.2)
[2021-05-27 12:20] VITALS: BP 108/73
[2021-05-27] MEDS: CEFTRIAXONE 1,000 MG in DEXTROSE 5% 50 ML IVPB SCH (12:31)
[2021-05-27 18:46] VITALS: BP 112/72
[2021-05-27] MEDS: ATORVASTATIN 40 MG TABLET PO SCH (21:17)
[2021-05-27] MEDS: SODIUM ZIRCONIUM CYCLOSILICATE 5 GM PO SCH (23:22)
[2021-05-28 00:30] VITALS: BP 123/74
[2021-05-28 05:22] LABS: BASOPHILS % (AUTO) 1 % (0-1); EOSINOPHILS % (AUTO) 4 % (1-7); LYMPHOCYTES % (AUTO) 16 % (22-44); MEAN CORPUSCULAR HEMOGLOBIN 30.8 pg (27.5-34.5); MEAN CORPUSCULAR HGB CONC 33.3 g/dL (33.2-36.2); MEAN PLATELET VOLUME 7.7 fL (7.4-10.4); MONOCYTES % (AUTO) 6 % (2-9); NEUTROPHILS % (AUTO) 72 % (42-75); PLATELET COUNT 265 x10^3/uL (130-400); RED BLOOD COUNT 3.91 x10^6/uL (4.38-5.82); RED CELL DISTRIBUTION WIDTH 14.5 % (9.4-14.8)
[2021-05-28 05:34] LABS: ALBUMIN 2.8 g/dL (3.4-5.0); ANION GAP 8 mmol/L (5-15); CHLORIDE 107 mmol/L (98-107)
[2021-05-28 05:42] LABS: ALANINE AMINOTRANSFERASE 23 U/L (12-78); ALKALINE PHOSPHATASE 122 U/L (45-117); BILIRUBIN,TOTAL 0.3 mg/dL (0.2-1.0); CALCIUM 8.4 mg/dL (8.5-10.1); CREATININE 2.96 mg/dL (0.7-1.3); TOTAL PROTEIN 7.8 g/dL (6.4-8.2)
[2021-05-28] MEDS: OXYcodone IR 5MG TABLET PO PRN ×4 (06:01→20:26)
[2021-05-28] MEDS: LEVOTHYROXINE 75 MCG TABLET PO SCH (06:02)
[2021-05-28] MEDS: INSULIN REGULAR 100 UNITS/ML, 3ML VIAL SQ-INSULIN SCH ×4 (07:00→20:18)
[2021-05-28 07:39] VITALS: BP 116/76
[2021-05-28] MEDS: SODIUM CHLORIDE 0.45% 1,000 ML IV SCH ×3 (08:48→23:27)
[2021-05-28] MEDS: INSULIN HUMULIN 70/30, 3ML PEN SQ-INSULIN SCH ×3 (08:53→16:00)
[2021-05-28] MEDS: MIDODRINE 5 MG TABLET PO SCH ×3 (08:54→20:25)
[2021-05-28] MEDS: CARVEDILOL 12.5 MG TABLET PO SCH ×3 (08:54→20:26)
[2021-05-28] MEDS: GABAPENTIN 300 MG CAPSULE PO SCH ×2 (08:54→20:25)
[2021-05-28] MEDS: SODIUM BICARBONATE 650 MG TABLET PO SCH ×2 (08:54→20:25)
[2021-05-28] MEDS: APIXABAN 5 MG TABLET PO SCH ×2 (08:54→20:25)
[2021-05-28] MEDS: SIMETHICONE 125 MG CHEW TAB PO PRN (09:01)
[2021-05-28] MEDS: ESCITALOPRAM 10MG TABLET PO SCH (09:01)
[2021-05-28] MEDS: SODIUM ZIRCONIUM CYCLOSILICATE 5 GM PO SCH (11:20)
[2021-05-28] MEDS: CEFTRIAXONE 1,000 MG in DEXTROSE 5% 50 ML IVPB SCH (12:07)
[2021-05-28 12:45] VITALS: BP 116/75
[2021-05-28] MEDS: ACETAMINOPHEN 325 MG TABLET PO PRN (17:12)
[2021-05-28 19:31] VITALS: BP 101/68
[2021-05-28] MEDS: ATORVASTATIN 40 MG TABLET PO SCH (20:25)
[2021-05-28] MEDS: TEMAZEPAM 15 MG CAPSULE PO PRN (22:54)
[2021-05-29 00:48] VITALS: BP 120/73
[2021-05-29] MEDS: LEVOTHYROXINE 75 MCG TABLET PO SCH (05:11)
[2021-05-29] MEDS: OXYcodone IR 5MG TABLET PO PRN ×5 (05:14→23:46)
[2021-05-29] MEDS: SODIUM CHLORIDE 0.45% 1,000 ML IV SCH ×2 (05:20→11:49)
[2021-05-29 05:58] LABS: BASOPHILS % (AUTO) 1 % (0-1); EOSINOPHILS % (AUTO) 4 % (1-7); LYMPHOCYTES % (AUTO) 24 % (22-44); MEAN CORPUSCULAR HEMOGLOBIN 30.1 pg (27.5-34.5); MEAN CORPUSCULAR HGB CONC 32.5 g/dL (33.2-36.2); MEAN PLATELET VOLUME 7.8 fL (7.4-10.4); MONOCYTES % (AUTO) 9 % (2-9); NEUTROPHILS % (AUTO) 62 % (42-75); PLATELET COUNT 256 x10^3/uL (130-400); RED BLOOD COUNT 3.82 x10^6/uL (4.38-5.82); RED CELL DISTRIBUTION WIDTH 14.2 % (9.4-14.8)
[2021-05-29 06:05] LABS: CHLORIDE 108 mmol/L (98-107)
[2021-05-29 06:12] LABS: ALANINE AMINOTRANSFERASE 21 U/L (12-78); ALBUMIN 2.8 g/dL (3.4-5.0); ALKALINE PHOSPHATASE 111 U/L (45-117); ANION GAP 7 mmol/L (5-15); BILIRUBIN,TOTAL 0.3 mg/dL (0.2-1.0); CALCIUM 8.1 mg/dL (8.5-10.1); TOTAL PROTEIN 7.5 g/dL (6.4-8.2)
[2021-05-29] MEDS: INSULIN HUMULIN 70/30, 3ML PEN SQ-INSULIN SCH ×3 (07:00→16:00)
[2021-05-29] MEDS: INSULIN REGULAR 100 UNITS/ML, 3ML VIAL SQ-INSULIN SCH ×4 (07:00→20:01)
[2021-05-29 07:22] VITALS: BP 113/61
[2021-05-29] MEDS: GABAPENTIN 300 MG CAPSULE PO SCH ×2 (08:23→20:00)
[2021-05-29] MEDS: MIDODRINE 5 MG TABLET PO SCH ×3 (08:24→20:01)
[2021-05-29] MEDS: SODIUM BICARBONATE 650 MG TABLET PO SCH ×2 (08:24→20:01)
[2021-05-29] MEDS: CARVEDILOL 12.5 MG TABLET PO SCH ×3 (08:24→20:01)
[2021-05-29] MEDS: APIXABAN 5 MG TABLET PO SCH (08:24)
[2021-05-29] MEDS: ESCITALOPRAM 10MG TABLET PO SCH (08:24)
[2021-05-29] MEDS: SIMETHICONE 125 MG CHEW TAB PO PRN (10:15)
[2021-05-29] MEDS: CEFTRIAXONE 1,000 MG in DEXTROSE 5% 50 ML IVPB SCH (11:49)
[2021-05-29] MEDS: SODIUM ZIRCONIUM CYCLOSILICATE 5 GM PO SCH (11:50)
[2021-05-29] MEDS: LACTATED RINGERS 1,000 ML IV SCH ×2 (12:30→20:00)
[2021-05-29 13:29] VITALS: BP 121/76
[2021-05-29 18:57] VITALS: BP 114/66
[2021-05-29] MEDS: TEMAZEPAM 15 MG CAPSULE PO PRN (20:00)
[2021-05-29] MEDS: ATORVASTATIN 40 MG TABLET PO SCH (20:01)
[2021-05-30 01:19] VITALS: BP 129/73
[2021-05-30] MEDS: LACTATED RINGERS 1,000 ML IV SCH ×4 (02:13→21:18)
[2021-05-30] MEDS: OXYcodone IR 5MG TABLET PO PRN ×4 (05:08→20:28)
[2021-05-30] MEDS: LEVOTHYROXINE 75 MCG TABLET PO SCH (05:08)
[2021-05-30 05:49] LABS: BASOPHILS % (AUTO) 0 % (0-1); EOSINOPHILS % (AUTO) 4 % (1-7); LYMPHOCYTES % (AUTO) 16 % (22-44); MEAN CORPUSCULAR HEMOGLOBIN 30.2 pg (27.5-34.5); MEAN CORPUSCULAR HGB CONC 33.3 g/dL (33.2-36.2); MEAN PLATELET VOLUME 7.7 fL (7.4-10.4); MONOCYTES % (AUTO) 6 % (2-9); NEUTROPHILS % (AUTO) 74 % (42-75); PLATELET COUNT 243 x10^3/uL (130-400); RED CELL DISTRIBUTION WIDTH 13.9 % (9.4-14.8)
[2021-05-30 05:59] LABS: ANION GAP 9 mmol/L (5-15); CALCIUM 8.4 mg/dL (8.5-10.1); CHLORIDE 109 mmol/L (98-107); CREATININE 2.21 mg/dL (0.7-1.3)
[2021-05-30 06:00] LABS: ALANINE AMINOTRANSFERASE 21 U/L (12-78); ALBUMIN 2.7 g/dL (3.4-5.0)
[2021-05-30 06:02] LABS: ALKALINE PHOSPHATASE 113 U/L (45-117); BILIRUBIN,TOTAL 0.4 mg/dL (0.2-1.0); TOTAL PROTEIN 7.5 g/dL (6.4-8.2)
[2021-05-30] MEDS: INSULIN REGULAR 100 UNITS/ML, 3ML VIAL SQ-INSULIN SCH ×4 (07:13→20:29)
[2021-05-30] MEDS: INSULIN HUMULIN 70/30, 3ML PEN SQ-INSULIN SCH ×4 (07:13→15:25)
[2021-05-30 07:31] VITALS: BP 111/75
[2021-05-30] MEDS: GABAPENTIN 300 MG CAPSULE PO SCH ×2 (08:26→20:28)
[2021-05-30] MEDS: MIDODRINE 5 MG TABLET PO SCH ×3 (08:27→20:29)
[2021-05-30] MEDS: ESCITALOPRAM 10MG TABLET PO SCH (08:27)
[2021-05-30] MEDS: SODIUM BICARBONATE 650 MG TABLET PO SCH ×2 (08:27→20:28)
[2021-05-30] MEDS: SODIUM ZIRCONIUM CYCLOSILICATE 5 GM PO SCH (08:28)
[2021-05-30] MEDS: CARVEDILOL 12.5 MG TABLET PO SCH ×2 (08:28→20:28)
[2021-05-30] MEDS ORDERED: FENTANYL PF 100 MCG/2ML IV PRN (09:00)
[2021-05-30] MEDS ORDERED: ONDANSETRON 2MG/ML, 2ML IVPush PRN (09:00)
[2021-05-30] MEDS ORDERED: hydrALAzine 20 MG/ML, 1ML IV PRN (09:00)
[2021-05-30] MEDS ORDERED: EPHEDRINE 50 MG/ML, 1ML IVPush PRN (09:00)
[2021-05-30] MEDS ORDERED: ACETAMINOPHEN 325 MG TABLET PO PRN (09:00)
[2021-05-30] MEDS ORDERED: LABETALOL 5MG/ML, 20ML IV PRN (09:00)
[2021-05-30] MEDS ORDERED: PROMETHAZINE 25 MG/ML, 1ML IVPush PRN (09:00)
[2021-05-30] MEDS ORDERED: PROPOFOL 50 ML ONE (10:22)
[2021-05-30] MEDS ORDERED: EPHEDRINE 50 MG/ML, 1ML ONE (10:42)
[2021-05-30] MEDS: CEFTRIAXONE 1,000 MG in DEXTROSE 5% 50 ML IVPB SCH (11:48)
[2021-05-30 14:12] VITALS: BP 134/68
[2021-05-30 19:24] VITALS: BP 110/72
[2021-05-30] MEDS: TEMAZEPAM 15 MG CAPSULE PO PRN (20:28)
[2021-05-30] MEDS: ATORVASTATIN 40 MG TABLET PO SCH (20:29)
[2021-05-30] MEDS: SIMETHICONE 125 MG CHEW TAB PO PRN (20:48)
[2021-05-31 02:00] VITALS: BP 124/71
[2021-05-31] MEDS: OXYcodone IR 5MG TABLET PO PRN ×4 (05:01→20:44)
[2021-05-31] MEDS: LACTATED RINGERS 1,000 ML IV SCH ×3 (05:02→17:27)
[2021-05-31] MEDS: LEVOTHYROXINE 75 MCG TABLET PO SCH (05:02)
[2021-05-31 05:13] LABS: BASOPHILS % (AUTO) 1 % (0-1); EOSINOPHILS % (AUTO) 5 % (1-7); LYMPHOCYTES % (AUTO) 16 % (22-44); MEAN CORPUSCULAR HEMOGLOBIN 30.6 pg (27.5-34.5); MEAN CORPUSCULAR HGB CONC 33.5 g/dL (33.2-36.2); MEAN PLATELET VOLUME 7.4 fL (7.4-10.4); MONOCYTES % (AUTO) 8 % (2-9); NEUTROPHILS % (AUTO) 71 % (42-75); PLATELET COUNT 236 x10^3/uL (130-400); RED BLOOD COUNT 3.84 x10^6/uL (4.38-5.82)
[2021-05-31 05:17] LABS: CHLORIDE 112 mmol/L (98-107)
[2021-05-31 05:23] LABS: ALANINE AMINOTRANSFERASE 22 U/L (12-78); ALBUMIN 2.6 g/dL (3.4-5.0); ALKALINE PHOSPHATASE 111 U/L (45-117); ANION GAP 7 mmol/L (5-15); BILIRUBIN,TOTAL 0.2 mg/dL (0.2-1.0); CALCIUM 8.4 mg/dL (8.5-10.1); CREATININE 1.74 mg/dL (0.7-1.3); TOTAL PROTEIN 7.4 g/dL (6.4-8.2)
[2021-05-31] MEDS: INSULIN HUMULIN 70/30, 3ML PEN SQ-INSULIN SCH ×3 (07:08→16:24)
[2021-05-31] MEDS: INSULIN REGULAR 100 UNITS/ML, 3ML VIAL SQ-INSULIN SCH ×4 (07:08→19:32)
[2021-05-31] MEDS: GABAPENTIN 300 MG CAPSULE PO SCH ×2 (08:23→20:44)
[2021-05-31] MEDS: ESCITALOPRAM 10MG TABLET PO SCH (08:23)
[2021-05-31] MEDS: CARVEDILOL 12.5 MG TABLET PO SCH ×2 (08:23→20:44)
[2021-05-31] MEDS: MIDODRINE 5 MG TABLET PO SCH ×3 (08:23→20:44)
[2021-05-31] MEDS: SODIUM BICARBONATE 650 MG TABLET PO SCH ×2 (08:23→20:45)
[2021-05-31 08:31] VITALS: BP 150/75
[2021-05-31] MEDS: CEFTRIAXONE 1,000 MG in DEXTROSE 5% 50 ML IVPB SCH (11:20)
[2021-05-31] MEDS: SODIUM ZIRCONIUM CYCLOSILICATE 5 GM PO SCH (12:29)
[2021-05-31 14:24] VITALS: BP 119/73
[2021-05-31] MEDS: PANTOPRAZOLE 20MG TABLET PO SCH (16:24)
[2021-05-31] MEDS: ACETAMINOPHEN 325 MG TABLET PO PRN (17:26)
[2021-05-31 19:30] VITALS: BP 116/71
[2021-05-31] MEDS: ATORVASTATIN 40 MG TABLET PO SCH (20:44)
[2021-05-31] MEDS: SIMETHICONE 125 MG CHEW TAB PO PRN (20:44)
[2021-06-01] MEDS: LACTATED RINGERS 1,000 ML IV SCH ×4 (00:43→23:54)
[2021-06-01 01:07] VITALS: BP 114/69
[2021-06-01 01:31] LABS: MICROSCOPIC INDICATED
[2021-06-01 01:41] LABS: CHLORIDE,URINE RANDOM 40 mmol/L; POTASSIUM,URINE RANDOM 9 mmol/L; SODIUM,URINE RANDOM 23 mmol/L
[2021-06-01 04:44] LABS: BASOPHILS % (AUTO) 1 % (0-1); EOSINOPHILS % (AUTO) 4 % (1-7); LYMPHOCYTES % (AUTO) 21 % (22-44); MEAN CORPUSCULAR HEMOGLOBIN 30.6 pg (27.5-34.5); MEAN PLATELET VOLUME 7.4 fL (7.4-10.4); MONOCYTES % (AUTO) 8 % (2-9); NEUTROPHILS % (AUTO) 67 % (42-75); PLATELET COUNT 271 x10^3/uL (130-400); RED BLOOD COUNT 4.09 x10^6/uL (4.38-5.82); RED CELL DISTRIBUTION WIDTH 14.2 % (9.4-14.8)
[2021-06-01 04:51] LABS: ALANINE AMINOTRANSFERASE 20 U/L (12-78); ALBUMIN 2.8 g/dL (3.4-5.0); ANION GAP 6 mmol/L (5-15); CALCIUM 8.6 mg/dL (8.5-10.1); CHLORIDE 112 mmol/L (98-107); CREATININE 1.97 mg/dL (0.7-1.3)
[2021-06-01 04:53] LABS: ALKALINE PHOSPHATASE 113 U/L (45-117); BILIRUBIN,TOTAL 0.2 mg/dL (0.2-1.0); TOTAL PROTEIN 7.6 g/dL (6.4-8.2)
[2021-06-01] MEDS: OXYcodone IR 5MG TABLET PO PRN ×2 (05:08→19:32)
[2021-06-01] MEDS: PANTOPRAZOLE 20MG TABLET PO SCH ×2 (05:08→16:30)
[2021-06-01] MEDS: LEVOTHYROXINE 75 MCG TABLET PO SCH (05:08)
[2021-06-01] MEDS: INSULIN REGULAR 100 UNITS/ML, 3ML VIAL SQ-INSULIN SCH ×4 (08:47→21:17)
[2021-06-01 09:00] VITALS: BP 106/77
[2021-06-01] MEDS: INSULIN HUMULIN 70/30, 3ML PEN SQ-INSULIN SCH ×3 (09:04→17:38)
[2021-06-01] MEDS: SODIUM ZIRCONIUM CYCLOSILICATE 5 GM PO SCH (09:04)
[2021-06-01] MEDS: APIXABAN 5 MG TABLET PO SCH ×2 (09:05→21:14)
[2021-06-01] MEDS: SODIUM BICARBONATE 650 MG TABLET PO SCH ×2 (09:05→21:14)
[2021-06-01] MEDS: ESCITALOPRAM 10MG TABLET PO SCH (09:05)
[2021-06-01] MEDS: MIDODRINE 5 MG TABLET PO SCH ×3 (09:05→21:14)
[2021-06-01] MEDS: GABAPENTIN 300 MG CAPSULE PO SCH ×4 (09:05→21:14)
[2021-06-01] MEDS: CARVEDILOL 12.5 MG TABLET PO SCH ×2 (09:05→21:15)
[2021-06-01 10:49] VITALS: BP 95/66
[2021-06-01] MEDS ORDERED: OXYcodone IR 5MG TABLET PO PRN (11:00)
[2021-06-01] MEDS: METOCLOPRAMIDE 5 MG/ML, 2ML IVPush SCH ×2 (11:53→19:31)
[2021-06-01] MEDS: SIMETHICONE 125 MG CHEW TAB PO PRN (11:54)
[2021-06-01] MEDS ORDERED: OXYcodone 5 MG/5 ML ORAL.SOL UDC PO ONE (14:00)
[2021-06-01 14:09] VITALS: BP 96/64
[2021-06-01] MEDS: CEFTRIAXONE 1,000 MG in DEXTROSE 5% 50 ML IVPB SCH (16:06)
[2021-06-01 19:52] VITALS: BP 108/72
[2021-06-01] MEDS: ATORVASTATIN 40 MG TABLET PO SCH (21:14)
[2021-06-01] MEDS: TEMAZEPAM 15 MG CAPSULE PO PRN (21:17)
[2021-06-02 01:23] VITALS: BP 116/72
[2021-06-02] MEDS: METOCLOPRAMIDE 5 MG/ML, 2ML IVPush SCH ×2 (03:15→11:47)
[2021-06-02] MEDS: OXYcodone IR 5MG TABLET PO PRN ×2 (03:35→11:47)
[2021-06-02] MEDS: LEVOTHYROXINE 75 MCG TABLET PO SCH (05:04)
[2021-06-02] MEDS: PANTOPRAZOLE 20MG TABLET PO SCH ×2 (05:04→16:16)
[2021-06-02] MEDS: LACTATED RINGERS 1,000 ML IV SCH (06:25)
[2021-06-02] MEDS: INSULIN HUMULIN 70/30, 3ML PEN SQ-INSULIN SCH ×3 (07:00→16:17)
[2021-06-02] MEDS: INSULIN REGULAR 100 UNITS/ML, 3ML VIAL SQ-INSULIN SCH ×2 (07:00→11:00)
[2021-06-02] MEDS: MIDODRINE 5 MG TABLET PO SCH ×2 (08:02→16:16)
[2021-06-02] MEDS: CARVEDILOL 12.5 MG TABLET PO SCH (08:02)
[2021-06-02] MEDS: APIXABAN 5 MG TABLET PO SCH (08:02)
[2021-06-02] MEDS: SODIUM ZIRCONIUM CYCLOSILICATE 5 GM PO SCH (08:02)
[2021-06-02] MEDS: ESCITALOPRAM 10MG TABLET PO SCH (08:03)
[2021-06-02] MEDS: GABAPENTIN 300 MG CAPSULE PO SCH ×2 (08:03→16:16)
[2021-06-02] MEDS: SODIUM BICARBONATE 650 MG TABLET PO SCH (08:03)
[2021-06-02 08:26] VITALS: BP 140/74
[2021-06-02] MEDS ORDERED: ALLOPURINOL 300 MG TABLET PO SCH (11:30)
[2021-06-02] MEDS ORDERED: METO5TAB57 PO (11:52)
[2021-06-02] MEDS ORDERED: ESCI10TA97 PO (11:52)
[2021-06-02] MEDS ORDERED: LEVO75TA PO (11:52)
[2021-06-02] MEDS ORDERED: TRAZ50TA66 PO (11:52)
[2021-06-02] MEDS ORDERED: APIX5TAB PO (11:52)
[2021-06-02] MEDS ORDERED: GABA300C PO (11:52)
[2021-06-02] MEDS ORDERED: OXYC5TAB98 PO (11:52)
[2021-06-02] MEDS ORDERED: ATOR40TA78 PO (11:52)
[2021-06-02] MEDS ORDERED: SODI5POW2 PO (11:52)
[2021-06-02] MEDS ORDERED: SODI650T PO (11:52)
[2021-06-02] MEDS ORDERED: ALLO300T PO (11:52)
[2021-06-02] MEDS ORDERED: ACET325T26 PO (11:52)
[2021-06-02] MEDS ORDERED: PANT20TA4 PO (11:52)
[2021-06-02] MEDS ORDERED: MIDO5TAB9 PO (11:52)
[2021-06-02] MEDS ORDERED: CARV12.52 PO (11:52)
[2021-06-02 12:28] VITALS: BP 117/75
[2021-06-02] MEDS ORDERED: LACTATED RINGERS 1,000 ML IV SCH (12:30)
== END 2021-06-02 17:59 | DRG 241 ==
LOC: ED 18:51 → EDIP 19:36 → 4EST 20:18
PROVIDERS: ADMIT Internal Medicine; ATTEND Internal Medicine
PROC: 0DB68ZX Excision of Stomach, Via Natural or Artificial Opening Endoscopic, Diagnostic (ICD-10-PCS; principal; 2021-05-30 11:30)
DX: K29.70 Gastritis, unspecified, without bleeding (principal); D68.69 Other thrombophilia; E11.22 Type 2 diabetes mellitus with diabetic chronic kidney disease; E11.43 Type 2 diabetes mellitus with diabetic autonomic (poly)neuropathy; N17.9 Acute kidney failure, unspecified; K31.84 Gastroparesis; E11.65 Type 2 diabetes mellitus with hyperglycemia; I95.9 Hypotension, unspecified; N18.32 Chronic kidney disease, stage 3b; E66.01 Morbid (severe) obesity due to excess calories; E87.2 Acidosis; D64.9 Anemia, unspecified; E86.9 Volume depletion, unspecified; I48.0 Paroxysmal atrial fibrillation; E03.9 Hypothyroidism, unspecified; E78.5 Hyperlipidemia, unspecified; E87.5 Hyperkalemia; G47.00 Insomnia, unspecified; E87.8 Other disorders of electrolyte and fluid balance, not elsewhere classified; G89.29 Other chronic pain; Z20.822 Contact with and (suspected) exposure to COVID-19; M25.559 Pain in unspecified hip; E79.0 Hyperuricemia without signs of inflammatory arthritis and tophaceous disease; L97.519 Non-pressure chronic ulcer of other part of right foot with unspecified severity; I12.9 Hypertensive chronic kidney disease with stage 1 through stage 4 chronic kidney disease, or unspecified chronic kidney disease; R68.81 Early satiety; N39.0 Urinary tract infection, site not specified; R13.10 Dysphagia, unspecified; Z79.01 Long term (current) use of anticoagulants; Z79.4 Long term (current) use of insulin; Z87.19 Personal history of other diseases of the digestive system; Z93.3 Colostomy status; Z79.891 Long term (current) use of opiate analgesic; Z88.8 Allergy status to other drugs, medicaments and biological substances
CPT/HCPCS: 36415; 74018; 74176; 80048; 80053; 81001; 82330; 82436; 82570; 82962; 83690; 83735; 84100; 84133; 84156; 84300; 84550; 85025; 87040; 87086; 87635; 88305; 93005; 96361; 96374; 96375; 99285; G0378; J0696; J1170; J1815; J2405; J2704; J2765; J7030; J7120

== ENCOUNTER 2021-06-27 09:35 | Inpatient (IN) | payer MEDICAID ==
[~2021-06-27] VITALS: Ht 195.6 cm; Wt 174.0 kg
[~2021-06-27 09:35] MED LIST changes: +ACET325T26 PO; +ALLO300T PO; +ATOR40TA78 PO; +CARV12.52 PO; +INSU100V5 SQ-INSULIN; +MAGN400O7 PO; +METO5TAB57 PO; +PANT20TA4 PO; +SIME80TA16 PO; +SODI5POW2 PO; +TRAZ50TA66 PO
--- NOTE | 2021-06-27 09:45 | NUR ---
PT BIB EMS FROM [facility] FOR "TWITCHING". PT HAS BEEN "TWITCHING" THE PAST COUPLE DAYS AND "HAS GOTTEN WORSE TODAY". [employer] TRUCK DRIVER FROM [facility] FELT HE NEEDED TO BE SEEN IN THE ER. PT RESTING IN [facility]. BLOOD SUGAR 150 PER EMS. CONNECTED TO MONITORS. BLANKET PROVIDED
[2021-06-27 10:21] LABS: MEAN CORPUSCULAR HEMOGLOBIN 30.4 pg (27.5-34.5); MEAN CORPUSCULAR HGB CONC 31.9 g/dL (33.2-36.2); MEAN PLATELET VOLUME 8.2 fL (7.4-10.4); PLATELET COUNT 242 x10^3/uL (130-400); RED BLOOD COUNT 4.33 x10^6/uL (4.38-5.82); RED CELL DISTRIBUTION WIDTH 14.7 % (9.4-14.8)
[2021-06-27 10:30] LABS: ALBUMIN 3.2 g/dL (3.4-5.0); CALCIUM 8.7 mg/dL (8.5-10.1); CHLORIDE 112 mmol/L (98-107); CREATININE 6.41 mg/dL (0.7-1.3)
[2021-06-27 10:39] LABS: ANION GAP 8 mmol/L (5-15)
[2021-06-27 10:41] LABS: <PLATELET ESTIMATE> ADEQUATE; <PLT MORPHOLOGY> NORMAL PLT MORPH; <RBC MORPHOLOGY> NORMAL; BAND#(MANUAL) 0.57 x10^3/uL; BANDS%(MANUAL) 2 % (0-7); EOS#(MANUAL) 0.29 x10^3/uL (0.0-0.4); EOS% (MANUAL) 1 % (1-7); LYMPH#(MANUAL) 2.28 x10^3/uL (1-3.4); LYMPHS% (MANUAL) 8 % (22-44); METAMYELOCYTES# (MANUAL) 0.29 x10^3/uL (0-0); METAMYELOCYTES% (MANUAL) 1 % (0-1); MONOS#(MANUAL) 1.14 x10^3/uL (0.3-2.7); MONOS% (MANUAL) 4 % (2-9); MYELOCYTES# (MANUAL) 0.29 x10^3/uL (0-0); MYELOCYTES% (MANUAL) 1 % (0-0); SEG#(MANUAL) 23.66 x10^3/uL (1.8-6.8); SEGS% (MANUAL) 83 % (42-75)
[2021-06-27] MEDS ORDERED: SODIUM BICARB 8.4%, 50ML SYRINGE ONE (10:59)
[2021-06-27] MEDS ORDERED: DEXTROSE 50%, 50ML SYRINGE ONE (10:59)
[2021-06-27] MEDS ORDERED: DEXTROSE 50%, 50ML SYRINGE IVPush ONE (11:00)
[2021-06-27] MEDS ORDERED: INSULIN REGULAR 100 UNITS/ML, 3ML VIAL IVPush ONE (11:00)
[2021-06-27] MEDS ORDERED: INSULIN SINGLE DOSE, ER ONE (11:00)
[2021-06-27] MEDS ORDERED: SODIUM BICARB 8.4%, 50ML SYRINGE IVPush ONE (11:00)
--- NOTE | 2021-06-27 11:13 | NUR ---
PT CONNECTED TO OPHTHALMIC MEDICAL TECHNICIAN. MEDICATED PER MAR
--- NOTE | 2021-06-27 11:48 | NUR ---
PT IN IR AT THIS TIME
[2021-06-27] MEDS ORDERED: SODIUM CHLORIDE FLUSH 10ML SYR IVF ONE (12:00)
[2021-06-27] MEDS ORDERED: SODIUM CHLORIDE 0.9% 1,000ML IVBOLUS ONE (12:00)
[2021-06-27] MEDS ORDERED: SODIUM CHLORIDE FLUSH 10ML SYR IVF PRN (12:00)
[2021-06-27 13:13] LABS: ABSOLUTE RETICS # 0.15 x10^6/uL (0.5-1.5); RED BLOOD COUNT 4.27 x10^6/uL (4.38-5.82); RETICULOCYTE COUNT % 3.52 % (0.5-1.5)
[2021-06-27] MEDS: SODIUM CHLORIDE 0.9% 1,000 ML IV SCH (13:35)
[2021-06-27 13:48] VITALS: BP 125/62
[2021-06-27 15:36] LABS: ANION GAP 8 mmol/L (5-15); CALCIUM 8.6 mg/dL (8.5-10.1); CHLORIDE 113 mmol/L (98-107); CREATININE 6.46 mg/dL (0.7-1.3)
[2021-06-27] MEDS ORDERED: MELATONIN 5 MG TABLET PO PRN (16:00)
[2021-06-27] MEDS ORDERED: ACETAMINOPHEN 325 MG TABLET PO PRN (16:00)
[2021-06-27] MEDS ORDERED: POLYETHYLENE GLYCOL 17 GM PACKET PO PRN (16:00)
[2021-06-27] MEDS ORDERED: BISACODYL 10 MG SUPP PR PRN (16:00)
[2021-06-27] MEDS ORDERED: ONDANSETRON ODT 4 MG PO PRN (16:00)
[2021-06-27] MEDS ORDERED: ONDANSETRON 2MG/ML, 2ML IVPush PRN (16:00)
[2021-06-27] MEDS ORDERED: hydrALAzine 20 MG/ML, 1ML IVPush PRN (16:00)
[2021-06-27] MEDS: HEPARIN 5,000 UNITS/ML, 1ML SQ SCH (18:02)
[2021-06-27] MEDS: INSULIN LISPRO 100 UNITS/ML, PEN SQ-INSULIN SCH (19:26)
[2021-06-27 19:58] LABS: MEAN CORPUSCULAR HEMOGLOBIN 29.8 pg (27.5-34.5); MEAN CORPUSCULAR HGB CONC 31.7 g/dL (33.2-36.2); MEAN PLATELET VOLUME 8.2 fL (7.4-10.4); PLATELET COUNT 259 x10^3/uL (130-400); RED BLOOD COUNT 3.93 x10^6/uL (4.38-5.82); RED CELL DISTRIBUTION WIDTH 14.8 % (9.4-14.8)
[2021-06-27] MEDS ORDERED: CALCIUM GLUCONATE 4.6 MEQ in SODIUM CHLORIDE 0.9% 100 ML IV ONE (20:00)
[2021-06-27] MEDS ORDERED: CALCIUM GLUCONATE 4.6 MEQ/10 ML IVPush ONE (20:00)
[2021-06-27 20:04] LABS: ANION GAP 9 mmol/L (5-15); CALCIUM 8.4 mg/dL (8.5-10.1); CHLORIDE 110 mmol/L (98-107)
[2021-06-27 20:07] LABS: TROPONIN I < 0.015 ng/mL (0.000-0.045)
[2021-06-27 20:20] LABS: BANDS%(MANUAL) 6 % (0-7); BASOS#(MANUAL) 0.43 x10^3/uL (0-0.1); BASOS% (MANUAL) 2 % (0-1); LYMPH#(MANUAL) 0.87 x10^3/uL (1-3.4); LYMPHS% (MANUAL) 4 % (22-44); METAMYELOCYTES# (MANUAL) 0.22 x10^3/uL (0-0); METAMYELOCYTES% (MANUAL) 1 % (0-1); MONOS#(MANUAL) 0.43 x10^3/uL (0.3-2.7); MONOS% (MANUAL) 2 % (2-9); MYELOCYTES# (MANUAL) 0.43 x10^3/uL (0-0); MYELOCYTES% (MANUAL) 2 % (0-0)
[2021-06-27 20:23] LABS: <PLATELET ESTIMATE> ADEQUATE; <PLT MORPHOLOGY> NORMAL PLT MORPH; <RBC MORPHOLOGY> NORMAL
[2021-06-27 20:25] LABS: PROGRANULOCYTES# (MANUAL) 0.22 x10^3/uL (0-0); PROGRANULOCYTES% (MANUAL) 1 % (0-0); SEGS% (MANUAL) 82 % (42-75)
[2021-06-27 23:47] VITALS: BP 113/77
[2021-06-28] MEDS: SODIUM BICARBONATE 650 MG TABLET PO SCH ×3 (00:13→20:58)
[2021-06-28] MEDS: ATORVASTATIN 40 MG TABLET PO SCH ×2 (00:13→20:57)
[2021-06-28] MEDS: CARVEDILOL 12.5 MG TABLET PO SCH ×3 (00:13→20:58)
[2021-06-28] MEDS: SODIUM CHLORIDE 0.9% 1,000 ML IV SCH ×4 (00:48→21:01)
[2021-06-28] MEDS: HEPARIN 5,000 UNITS/ML, 1ML SQ SCH ×3 (01:13→19:05)
[2021-06-28 01:16] VITALS: BP 113/77
[2021-06-28 01:43] VITALS: BP 129/76
[2021-06-28] MEDS: LEVOTHYROXINE 75 MCG TABLET PO SCH ×2 (05:19→06:58)
[2021-06-28 05:41] LABS: MEAN CORPUSCULAR HEMOGLOBIN 30.4 pg (27.5-34.5); MEAN CORPUSCULAR HGB CONC 33.4 g/dL (33.2-36.2); MEAN PLATELET VOLUME 7.9 fL (7.4-10.4); PLATELET COUNT 220 x10^3/uL (130-400); RED BLOOD COUNT 3.54 x10^6/uL (4.38-5.82); RED CELL DISTRIBUTION WIDTH 14.2 % (9.4-14.8)
[2021-06-28 05:52] LABS: ALBUMIN 2.7 g/dL (3.4-5.0); CALCIUM 8.1 mg/dL (8.5-10.1); CHLORIDE 104 mmol/L (98-107)
[2021-06-28 06:00] LABS: ALANINE AMINOTRANSFERASE 34 U/L (12-78); ALKALINE PHOSPHATASE 119 U/L (45-117); ANION GAP 10 mmol/L (5-15); BILIRUBIN,TOTAL 0.4 mg/dL (0.2-1.0); CREATININE 4.46 mg/dL (0.7-1.3); TOTAL PROTEIN 7.7 g/dL (6.4-8.2)
[2021-06-28 06:01] LABS: CHOL/HDL RATIO 3.6; CHOLESTEROL, TOTAL 68 mg/dL (140-239); HDL CHOL % 28 % (26-37); HDL CHOLESTEROL (DIRECT) 19 mg/dL (40-60); LDL CHOLESTEROL,CALCULATED 18 mg/dL (54-169); LDL/HDL RATIO 0.9 (0.5-3.0); TRIGLYCERIDES 157 mg/dL (50-200); VLDL CHOLESTEROL 31 mg/dL (0-25)
[2021-06-28 06:10] LABS: BAND#(MANUAL) 0.66 x10^3/uL; BANDS%(MANUAL) 4 % (0-7); LYMPH#(MANUAL) 0.83 x10^3/uL (1-3.4); LYMPHS% (MANUAL) 5 % (22-44); MONOS% (MANUAL) 3 % (2-9); SEG#(MANUAL) 14.61 x10^3/uL (1.8-6.8); SEGS% (MANUAL) 88 % (42-75)
[2021-06-28 06:11] LABS: <PLATELET ESTIMATE> ADEQUATE; <PLT MORPHOLOGY> NORMAL PLT MORPH; ANISOCYTOSIS 1+
[2021-06-28] MEDS: INSULIN LISPRO 100 UNITS/ML, PEN SQ-INSULIN SCH ×4 (07:00→21:03)
[2021-06-28] MEDS: SENNA/DOCUSATE TABLET PO SCH (09:00)
[2021-06-28 09:25] VITALS: BP 110/68
[2021-06-28] MEDS: SODIUM ZIRCONIUM CYCLOSILICATE 5 GM PO SCH (11:25)
[2021-06-28 12:26] VITALS: BP 92/61
[2021-06-28 19:59] VITALS: BP 125/73
[2021-06-28] MEDS: HYDROcodone/APAP 5/325 TABLET PO PRN (21:01)
[2021-06-28 23:50] LABS: MEAN CORPUSCULAR HEMOGLOBIN 30.1 pg (27.5-34.5); MEAN CORPUSCULAR HGB CONC 32.8 g/dL (33.2-36.2); MEAN PLATELET VOLUME 7.8 fL (7.4-10.4); PLATELET COUNT 207 x10^3/uL (130-400); RED BLOOD COUNT 3.21 x10^6/uL (4.38-5.82); RED CELL DISTRIBUTION WIDTH 14.4 % (9.4-14.8)
[2021-06-29 00:08] LABS: <PLATELET ESTIMATE> ADEQUATE; <PLT MORPHOLOGY> NORMAL PLT MORPH; <RBC MORPHOLOGY> NORMAL; BAND#(MANUAL) 0.39 x10^3/uL; BANDS%(MANUAL) 3 % (0-7); BASOS#(MANUAL) 0.13 x10^3/uL (0-0.1); BASOS% (MANUAL) 1 % (0-1); EOS#(MANUAL) 0.13 x10^3/uL (0.0-0.4); EOS% (MANUAL) 1 % (1-7); LYMPHS% (MANUAL) 13 % (22-44); METAMYELOCYTES# (MANUAL) 0.13 x10^3/uL (0-0); METAMYELOCYTES% (MANUAL) 1 % (0-1); MONOS#(MANUAL) 0.79 x10^3/uL (0.3-2.7); MONOS% (MANUAL) 6 % (2-9); MYELOCYTES# (MANUAL) 0.13 x10^3/uL (0-0); MYELOCYTES% (MANUAL) 1 % (0-0); SEG#(MANUAL) 9.69 x10^3/uL (1.8-6.8); SEGS% (MANUAL) 74 % (42-75)
[2021-06-29 00:33] VITALS: BP 117/71
[2021-06-29] MEDS: HYDROcodone/APAP 5/325 TABLET PO PRN ×5 (02:12→21:07)
[2021-06-29] MEDS: SODIUM CHLORIDE 0.9% 1,000 ML IV SCH ×3 (03:49→16:17)
[2021-06-29] MEDS: LEVOTHYROXINE 75 MCG TABLET PO SCH (06:11)
[2021-06-29 06:36] VITALS: BP 116/71
[2021-06-29 06:51] LABS: ALBUMIN 2.4 g/dL (3.4-5.0); ANION GAP 8 mmol/L (5-15); CALCIUM 7.4 mg/dL (8.5-10.1); CHLORIDE 106 mmol/L (98-107); CREATININE 4.17 mg/dL (0.7-1.3)
[2021-06-29] MEDS: SODIUM ZIRCONIUM CYCLOSILICATE 5 GM PO SCH (07:33)
[2021-06-29] MEDS: INSULIN LISPRO 100 UNITS/ML, PEN SQ-INSULIN SCH ×4 (07:52→21:09)
[2021-06-29] MEDS: SENNA/DOCUSATE TABLET PO SCH (09:00)
[2021-06-29] MEDS: APIXABAN 5 MG TABLET PO SCH ×2 (10:15→21:07)
[2021-06-29] MEDS: SODIUM BICARBONATE 650 MG TABLET PO SCH ×2 (10:15→21:06)
[2021-06-29 10:22] LABS: CHLORIDE,URINE RANDOM 23 mmol/L; MICROSCOPIC INDICATED; POTASSIUM,URINE RANDOM 11 mmol/L; SODIUM,URINE RANDOM 20 mmol/L
[2021-06-29] MEDS: CARVEDILOL 12.5 MG TABLET PO SCH ×2 (10:59→21:07)
[2021-06-29] MEDS ORDERED: ERGOCALCIFEROL 50,000 UNIT CAPSULE PO SCH (12:00)
[2021-06-29 13:02] VITALS: BP 117/75
[2021-06-29 19:05] VITALS: BP 90/45
[2021-06-29 19:11] VITALS: BP 106/62
[2021-06-29] MEDS: ATORVASTATIN 40 MG TABLET PO SCH (21:06)
[2021-06-30] MEDS: SODIUM CHLORIDE 0.9% 1,000 ML IV SCH (00:30)
[2021-06-30 00:45] VITALS: BP 110/53
[2021-06-30] MEDS: HYDROcodone/APAP 5/325 TABLET PO PRN ×5 (01:54→23:18)
[2021-06-30 05:10] LABS: BASOPHILS % (AUTO) 1 % (0-1); EOSINOPHILS % (AUTO) 4 % (1-7); LYMPHOCYTES % (AUTO) 17 % (22-44); MEAN CORPUSCULAR HEMOGLOBIN 30.7 pg (27.5-34.5); MEAN CORPUSCULAR HGB CONC 33.6 g/dL (33.2-36.2); MEAN PLATELET VOLUME 7.6 fL (7.4-10.4); MONOCYTES % (AUTO) 9 % (2-9); NEUTROPHILS % (AUTO) 68 % (42-75); PLATELET COUNT 206 x10^3/uL (130-400); RED BLOOD COUNT 3.33 x10^6/uL (4.38-5.82)
[2021-06-30 05:23] LABS: CHLORIDE 112 mmol/L (98-107)
[2021-06-30 05:27] LABS: ANION GAP 6 mmol/L (5-15); CALCIUM 7.6 mg/dL (8.5-10.1); CREATININE 2.98 mg/dL (0.7-1.3)
[2021-06-30] MEDS: LEVOTHYROXINE 75 MCG TABLET PO SCH (05:43)
[2021-06-30] MEDS: INSULIN LISPRO 100 UNITS/ML, PEN SQ-INSULIN SCH ×4 (07:00→20:57)
[2021-06-30 07:39] VITALS: BP 128/76
[2021-06-30] MEDS ORDERED: SODIUM BICARB 8.4%,50ML SYR. 150 MEQ in DEXTROSE 5% 1,000 ML IV SCH (08:30)
[2021-06-30] MEDS: SODIUM BICARBONATE 650 MG TABLET PO SCH ×2 (08:33→21:07)
[2021-06-30] MEDS: CARVEDILOL 12.5 MG TABLET PO SCH ×2 (08:33→21:07)
[2021-06-30] MEDS: APIXABAN 5 MG TABLET PO SCH ×2 (08:33→21:07)
[2021-06-30] MEDS: SENNA/DOCUSATE TABLET PO SCH (08:36)
[2021-06-30] MEDS: SODIUM BICARB 8.4%,50ML SYR. 75 MEQ in SODIUM CHLORIDE 0.45% 1,000 ML IV SCH ×2 (09:02→23:18)
[2021-06-30] MEDS ORDERED: ARTIFICIAL TEARS 15 DROP/ML BOTTLE EACHEYE PRN (09:30)
[2021-06-30 12:30] VITALS: BP 123/80
[2021-06-30] MEDS: ATORVASTATIN 40 MG TABLET PO SCH (21:07)
[2021-07-01 00:42] VITALS: BP 132/76
[2021-07-01] MEDS: HYDROcodone/APAP 5/325 TABLET PO PRN ×3 (04:25→18:58)
[2021-07-01] MEDS: LEVOTHYROXINE 75 MCG TABLET PO SCH (05:42)
[2021-07-01 05:53] LABS: BASOPHILS % (AUTO) 1 % (0-1); EOSINOPHILS % (AUTO) 5 % (1-7); LYMPHOCYTES % (AUTO) 18 % (22-44); MEAN CORPUSCULAR HEMOGLOBIN 30.2 pg (27.5-34.5); MEAN PLATELET VOLUME 7.3 fL (7.4-10.4); MONOCYTES % (AUTO) 8 % (2-9); NEUTROPHILS % (AUTO) 69 % (42-75); PLATELET COUNT 223 x10^3/uL (130-400); RED BLOOD COUNT 3.49 x10^6/uL (4.38-5.82); RED CELL DISTRIBUTION WIDTH 14.6 % (9.4-14.8)
[2021-07-01 06:01] LABS: CALCIUM 7.7 mg/dL (8.5-10.1); CHLORIDE 113 mmol/L (98-107)
[2021-07-01 06:05] LABS: ANION GAP 4 mmol/L (5-15); CREATININE 1.91 mg/dL (0.7-1.3)
[2021-07-01 06:35] VITALS: BP 118/73
[2021-07-01] MEDS: INSULIN LISPRO 100 UNITS/ML, PEN SQ-INSULIN SCH ×4 (07:00→20:52)
[2021-07-01] MEDS: SENNA/DOCUSATE TABLET PO SCH (07:44)
[2021-07-01] MEDS: APIXABAN 5 MG TABLET PO SCH ×2 (08:04→20:50)
[2021-07-01] MEDS: SODIUM BICARBONATE 650 MG TABLET PO SCH ×2 (08:04→20:51)
[2021-07-01] MEDS: CARVEDILOL 12.5 MG TABLET PO SCH ×2 (08:04→20:51)
[2021-07-01] MEDS ORDERED: SODIUM ZIRCONIUM CYCLOSILICATE 10 GM PO ONE ×2 (10:30→19:00)
[2021-07-01 12:16] VITALS: BP 127/79
[2021-07-01 19:20] VITALS: BP 150/86
[2021-07-01] MEDS: ATORVASTATIN 40 MG TABLET PO SCH (20:50)
[2021-07-02 00:54] VITALS: BP 128/79
[2021-07-02] MEDS: HYDROcodone/APAP 5/325 TABLET PO PRN ×3 (01:34→15:04)
[2021-07-02 06:29] VITALS: BP 127/76
[2021-07-02] MEDS: LEVOTHYROXINE 75 MCG TABLET PO SCH (06:32)
[2021-07-02] MEDS: INSULIN LISPRO 100 UNITS/ML, PEN SQ-INSULIN SCH ×3 (07:00→16:00)
[2021-07-02] MEDS: APIXABAN 5 MG TABLET PO SCH (07:57)
[2021-07-02] MEDS: SODIUM BICARBONATE 650 MG TABLET PO SCH (07:57)
[2021-07-02] MEDS: CARVEDILOL 12.5 MG TABLET PO SCH (07:57)
[2021-07-02] MEDS: SENNA/DOCUSATE TABLET PO SCH (07:57)
[2021-07-02 09:14] LABS: ANION GAP 6 mmol/L (5-15); CALCIUM 8.4 mg/dL (8.5-10.1); CHLORIDE 112 mmol/L (98-107)
[2021-07-02 10:02] LABS: CREATININE 1.62 mg/dL (0.7-1.3)
[2021-07-02 13:45] VITALS: BP 98/42
[2021-07-02] MEDS ORDERED: ERGO500017 PO (16:21)
[2021-07-02] MEDS ORDERED: SODI650T PO (16:21)
== END 2021-07-02 21:54 | disposition home or self-care (01) | DRG 469 ==
LOC: ED 09:39 → EDIP 11:46 → 4WST 12:55
PROVIDERS: ADMIT Hospitalist; ATTEND Hospitalist
PROC: 5A1D70Z Performance of Urinary Filtration, Intermittent, Less than 6 Hours Per Day (ICD-10-PCS; principal; 2021-06-27)
PROC: 02HV33Z Insertion of Infusion Device into Superior Vena Cava, Percutaneous Approach (ICD-10-PCS; 2021-06-27)
PROC: B548ZZA Ultrasonography of Superior Vena Cava, Guidance (ICD-10-PCS; 2021-06-27)
DX: N17.9 Acute kidney failure, unspecified (principal); G93.41 Metabolic encephalopathy; K55.9 Vascular disorder of intestine, unspecified; E11.22 Type 2 diabetes mellitus with diabetic chronic kidney disease; E11.42 Type 2 diabetes mellitus with diabetic polyneuropathy; I95.9 Hypotension, unspecified; E66.01 Morbid (severe) obesity due to excess calories; E11.621 Type 2 diabetes mellitus with foot ulcer; G25.3 Myoclonus; I48.0 Paroxysmal atrial fibrillation; D63.1 Anemia in chronic kidney disease; N18.9 Chronic kidney disease, unspecified; E03.9 Hypothyroidism, unspecified; Z68.42 Body mass index [BMI] 45.0-49.9, adult; Z88.6 Allergy status to analgesic agent; E78.5 Hyperlipidemia, unspecified; E87.2 Acidosis; E87.5 Hyperkalemia; F41.9 Anxiety disorder, unspecified; G89.29 Other chronic pain; I12.9 Hypertensive chronic kidney disease with stage 1 through stage 4 chronic kidney disease, or unspecified chronic kidney disease; L97.519 Non-pressure chronic ulcer of other part of right foot with unspecified severity; M89.8X9 Other specified disorders of bone, unspecified site; Z66 Do not resuscitate; Z79.01 Long term (current) use of anticoagulants; Z79.4 Long term (current) use of insulin; Z79.899 Other long term (current) drug therapy; Z90.49 Acquired absence of other specified parts of digestive tract; K29.70 Gastritis, unspecified, without bleeding; M54.9 Dorsalgia, unspecified; E79.0 Hyperuricemia without signs of inflammatory arthritis and tophaceous disease
CPT/HCPCS: 36415; 36556; 70450; 71045; 80048; 80053; 80061; 80069; 81001; 82040; 82306; 82310; 82330; 82436; 82550; 82570; 82728; 82962; 83540; 83550; 83735; 83970; 84100; 84133; 84156; 84300; 84443; 84484; 84550; 85025; 85045; 86317; 86705; 87086; 87205; 87340; 90935; 93005; 96374; 96375; G0378; J0610; J1644; C1751; J1642; J1815; J7030; Q0177